=== PATIENT | female | born 1940 | race Caucasian/White ===

== ENCOUNTER 2018-04-02 12:40 | Inpatient (IN) ==
[2018-04-02] MEDS ORDERED: ceFAZolin 2 GM Premix Inj 2 GM/50 ML PIGGYBACK IV.SIG ONE (12:52)
[2018-04-02] MEDS ORDERED: Diphtheria/Tetanus/Pertussis Vaccine Inj 0.5 ML Syringe IM ONE (12:52)
--- NOTE | 2018-04-02 13:05 | XR ---
EXAM DATE: 04/02/2018 12:58 PM EST AGE/SEX: 89 years / Female INDICATIONS: Trauma alert. Head wound after fall in kitchen. CLINICAL DATA: This is the patient's initial encounter. Patient reports that signs and symptoms have been present for 1 day and indicates a pain score of Nonresponsive. MEDICAL/SURGICAL HISTORY: Non-responsive. Non-responsive. COMPARISON: No prior exams available for comparison. FINDINGS: Single view the chest demonstrates generalized interstitial vascular prominence. Median sternotomy wi res from prior open heart surgery are noted. Heart is at the upper limits of normal size to mildly enlarged. Osseous structures are grossly intact. CONCLUSION: Generalized interstitial vascular prominence which may represent developing congestion No evidence of consolidating airspace disease or effusions. Status post median sternotomy. Electronically signed by: Francis Santana MD 04/02/2018 1:04 PM EST
[2018-04-02 13:18] LABS: Baso % (Auto) 0.7 % (0.0-2.0); Eos # (Auto) 0.1 th/mm3 (0.0-0.4); Eos % (Auto) 0.9 % (0.0-4.0); Hemoglobin 13.6 gm/dL (11.6-15.3); Lymph # (Auto) 1.3 th/mm3 (1.0-4.8); Lymph % (Auto) 18.9 % (9.0-44.0); Mean Corpuscular HGB Conc 33.2 % (32.0-36.0); Mean Corpuscular Hemoglobin 33.2 pg (27.0-34.0); Mean Platelet Volume 9.3 fL (7.0-11.0); Mono # (Auto) 0.4 th/mm3 (0.0-0.9); Mono % (Auto) 6.4 % (0.0-8.0); Neut # (Auto) 5.1 th/mm3 (1.8-7.7); Neut % (Auto) 73.1 % (16.0-70.0); Platelet Count 187 th/mm3 (150-450); Red Cell Distribution Width 14.1 % (11.6-17.2)
--- NOTE | 2018-04-02 13:19 | CT ---
EXAM DATE: 04/02/2018 1:08 PM EST AGE/SEX: 89 years / Female INDICATIONS: Trauma alert, syncope with fall CLINICAL DATA: This is the patient's initial encounter. Patient reports that signs and symptoms have been present for 1 day and indicates a pain score of 5/10. MEDICAL/SURGICAL HISTORY: Cerebrovascular disease. Hypertension. CABG. RADIATION DOSE: 45.82 CTDI (mGy) COMPARISON: No prior exams available for comparison. TECHNIQUE: CT of the head without contrast. Using automated exposure control and adjustment of the mA and/or kV according to patient size, radiation dose was kept as low as reasonably achievable to ob tain optimal diagnostic quality images. DICOM format image data is available electronically for revi ew and comparison. FINDINGS: Cerebrum: The ventricles are normal for age. Cerebral atrophy and areas of low attenuation throughou t the white matter. No evidence of midline shift, mass lesion, hemorrhage or acute infarction. No ex traaxial fluid collections are seen. Posterior Fossa: The cerebellum and brainstem are intact. The 4th ventricle is midline. The cerebe llopontine angle is unremarkable. Extracranial: The visualized portion of the orbits is intact. Facial and scalp contusions. Skull: The calvaria is intact. No evidence of skull fracture. CONCLUSION: 1. No acute intracranial abnormality. 2. Facial and scalp contusions. 3. Cerebral atrophy and chronic ischemic small vessel vasculopathy. Electronically signed by: Gume Da Silva MD 04/02/2018 1:18 PM EST
--- NOTE | 2018-04-02 13:23 | CT ---
EXAM DATE: 04/02/2018 1:18 PM EST AGE/SEX: 89 years / Female INDICATIONS: Trauma alert, syncope with fall CLINICAL DATA: This is the patient's initial encounter. Patient reports that signs and symptoms have been present for 1 day and indicates a pain score of 7/10. MEDICAL/SURGICAL HISTORY: Cerebrovascular disease. Hypertension. CABG. RADIATION DOSE: 63.47 CTDI (mGy) COMPARISON: No prior exams available for comparison. TECHNIQUE: Contiguous images in the axial and coronal planes were obtained using helical multirow de tector technique. Using automated exposure control and adjustment of the mA and/or kV according to p atient size, radiation dose was kept as low as reasonably achievable to obtain optimal diagnostic candis lity images. DICOM format image data is available electronically for review and comparison. FINDINGS: Orbits: The orbital and infraorbital osseous structures are intact. The retroconal structures have a normal configuration. No radiopaque foreign bodies are seen. Nasal Bone: The nasal bone and maxillary spine are intact. Zygomatic Arches: Symmetric without evidence of fracture. Sinuses: The maxillary, ethmoid, and frontal sinuses are intact. No air-fluid levels seen. Nasal Cavity: The nasal septum is intact and midline. The lacrimal ducts are intact. Soft Tissues: No radiopaque foreign bodies seen. There is soft-tissue swelling. Left superior orbita l contusion.. Intracranial: No intracranial air seen. Cribriform Plate: Grossly intact. CONCLUSION: 1. Facial soft tissue swelling greater than left. 2. No facial fractures. Electronically signed by: Gume Da Silva MD 04/02/2018 1:22 PM EST
[2018-04-02 13:27] LABS: Activated Partial Thrombo Time 27.2 sec (23.4-31.7); Prothrombin Time 9.7 sec (9.8-11.6)
[2018-04-02] MEDS ORDERED: Lidocaine 1% Inj 50 ML Vial INFILTRATN ONE ×2 (13:37→14:30)
[2018-04-02] MEDS ORDERED: Lidocaine PF 1% Inj 30 ML Vial ONE (13:40)
--- NOTE | 2018-04-02 13:53 | CT ---
EXAM DATE: 04/02/2018 1:45 PM EST AGE/SEX: 89 years / Female INDICATIONS: Trauma alert, syncope with fall CLINICAL DATA: This is the patient's initial encounter. Patient reports that signs and symptoms have been present for 1 day and indicates a pain score of 0/10. MEDICAL/SURGICAL HISTORY: Cerebrovascular disease. Hypertension. CABG. RADIATION DOSE: 15.33 CTDI (mGy) COMPARISON: [facility], CHEST 1V SINGLE AP, 04/02/2018. . TECHNIQUE: Contiguous axial images were obtained using helical multirow detector technique. The vol umetric data was post-processed with multiplanar reconstruction in oblique axial, sagittal, and coron al planes. Using automated exposure control and adjustment of the mA and/or kV according to patient s ize, radiation dose was kept as low as reasonably achievable to obtain optimal diagnostic quality gema ges. DICOM format image data is available electronically for review and comparison. FINDINGS: Vertebrae: Normal vertebral body height. Diffuse mild degenerative changes. Scattered facet arthropa thy. There is a mass posterior to the esophagus and right thyroid gland. This measures 2.6 x 1.0 cm. Interlobular septal thickening within the upper lobes. Alignment: Normal. No subluxation. C2-3: The bony spinal canal is normal in size. No evidence of disc bulge or herniation. The neural foramina are bilaterally patent. C3-4: The bony spinal canal is normal in size. No evidence of disc bulge or herniation. The neural foramina are bilaterally patent. C4-5: The bony spinal canal is normal in size. No evidence of disc bulge or herniation. The neural foramina are bilaterally patent. C5-6: The bony spinal canal is normal in size. No evidence of disc bulge or herniation. The neural foramina are bilaterally patent. C6-7: The bony spinal canal is normal in size. No evidence of disc bulge or herniation. The neural foramina are bilaterally patent. C7-T1: The bony spinal canal is normal in size. No evidence of disc bulge or herniation. The neura l foramina are bilaterally patent. CONCLUSION: 1. No fracture or subluxation. 2. There is a mass in the right posterior neck just posterior to the right thyroid lobe and trachea. Malignancy should be excluded. 3. Interlobular septal thickening within the upper lung likely from interstitial edema. Electronically signed by: Gume Da Silva MD 04/02/2018 1:51 PM EST
--- NOTE | 2018-04-02 13:57 | CT ---
EXAM DATE: 04/02/2018 1:45 PM EST AGE/SEX: 89 years / Female INDICATIONS: Trauma alert, syncope with fall CLINICAL DATA: This is the patient's initial encounter. Patient reports that signs and symptoms have been present for 1 day and indicates a pain score of 0/10. MEDICAL/SURGICAL HISTORY: Carotid stenosis. Hypertension. CABG. RADIATION DOSE: 6.8 CTDI (mGy) COMPARISON: No prior exams available for comparison. TECHNIQUE: Volumetric scanning was performed using a multi-row detector CT scanner during bolus infu lucy of 55 ml Omnipaque 350 (iohexol) nonionic water-soluble contrast as a single exam dose. The yon a was post processed with a variety of visualization algorithms including full volume maximum intensi ty projection and sliding thin slab reformation. Using automated exposure control and adjustment of t he mA and/or kV according to patient size, radiation dose was kept as low as reasonably achievable to obtain optimal diagnostic quality images. DICOM format image data is available electronically for r eview and comparison. FINDINGS: Pulmonary Arteries: No filling defects are seen in the pulmonary arteries out to the subsegmental ve ssels. The left and right pulmonary arteries are normal in diameter. Lung: There is some interlobular septal thickening. There are some groundglass densities in the lowe r lobes and posterior segments of the upper lobes. 3 to 4 mm nodules are seen within the right upper lobe. There is an 11 mm nodule in the right lower lobe. 4 mm nodule left upper lobe. Effusion: None. Mediastinum: No evidence of mediastinal or hilar adenopathy. Status post CABG. Other: The axilla is unremarkable. CONCLUSION: 1. No evidence for pulmonary embolism. 2. Interlobular septal thickening with scattered groundglass densities likely interstitial edema. 3. 11 mm nodule in the right lower lobe, metastatic disease cannot be excluded. A few other smaller nodules are seen within the upper lobes. Electronically signed by: Gume Da Silva MD 04/02/2018 1:56 PM EST
--- NOTE | 2018-04-02 14:07 | ED ---
HPI General Chief complaint: Trauma Alert Stated complaint: Trauma Alert Time Seen by Provider: 04/02/18 12:59 Source: EMS Mode of arrival: EMS Limitations: no limitations History of Present Illness HPI narrative: Elderly female with history of CVA, CAD s/p CABG ([employer] in [place]) here as trauma alert s/p syncope and then fall. Pt was walking to kitchen and said she does not remember what happened but found her on the floor. She has a large avulsion left scalp and periorbital ecchymoses. +LOC for a second. Pt is GCS 15 in the trauma bay and denies any complaints. She was hypoxic and required 4N NC. No focal neurologic deficits. Denies any chest pain, n/v, abdominal pain, focal weakness or numbness. Related Data Home Medications Medication Instructions Recorded Confirmed Ocuvite 04/02/18 aspirin 81 mg PO DAILY 04/02/18 04/02/18 carvedilol 3.125 mg PO BID 04/02/18 04/02/18 digoxin 0.125 mg PO EVERY OTHER DAY 04/02/18 04/02/18 furosemide 20 mg PO DAILY 04/02/18 04/02/18 magnesium 04/02/18 potassium chloride 10 meq PO BID 04/02/18 04/02/18 sacubitril-valsartan [Entresto] 1 tab PO BID 04/02/18 04/02/18 Allergies Allergy/AdvReac Type Severity Reaction Status Date / Time acetaminophen [From Percocet] Allergy UNKNOWN Verified 04/02/18 14:07 amlodipine [From Norvasc] Allergy UNKNOWN Verified 04/02/18 14:07 amoxicillin [From Augmentin] Allergy UNKNOWN Verified 04/02/18 14:07 benzonatate Allergy UNKNOWN Verified 04/02/18 14:07 [From Tessalon Perles] clavulanic acid Allergy UNKNOWN Verified 04/02/18 14:07 [From Augmentin] clonidine Allergy UNKNWN Verified 04/02/18 14:07 enalaprilat [From Vasotec] Allergy UNKNOWN Verified 04/02/18 14:07 nadolol Allergy UNKNOWN Verified 04/02/18 14:07 nebivolol [From Bystolic] Allergy UNKNOWN Verified 04/02/18 14:07 oxycodone [From Percocet] Allergy UNKNOWN Verified 11/05/18 14:07 verapamil [From Covera-HS] Allergy UNKNOWN Verified 04/02/18 14:07 FENESIN Allergy UNKNOWN Uncoded 04/02/18 14:07 ZPAK Allergy UNKNOWN Uncoded 04/02/18 14:07 Review of Systems ROS: all other systems reviewed are negative [facility] Family History Family History Other Family history non-contributory Social History Social History Substance History: No History of Abuse Second Hand Smoke Exposure: No Smoking Status: Never smoker How Often Do You Have a Drink Containing Alcohol: Never Recent Travel in [facility] within the Last 8 Weeks: No Recent Out of Country Travel within the Last 8 Weeks: No Immunization History Tetanus Immunization: <5 Years Exam Narrative Exam Narrative: GENERAL: Elderly female in mild distress. SKIN: Focused skin assessment warm/dry. HEAD: +Large scalp laceration. Large periorbital ecchymoses with laceration eyebrow. EYES: Right pupil reactive to light. Unable to open left eye due to swelling. No scleral icterus. No injection or drainage. ENT: No nasal bleeding or discharge. Mucous membranes pink and moist. NECK: Trachea midline. No JVD. CARDIOVASCULAR: Sinus tachycardia. No murmur appreciated. RESPIRATORY: No accessory muscle use. Clear to auscultation. Breath sounds equal bilaterally. GASTROINTESTINAL: Abdomen soft, non-tender, nondistended. MUSCULOSKELETAL: No obvious deformities. No clubbing. No cyanosis. No edema. NEUROLOGICAL: Awake and alert. No obvious cranial nerve deficits. Motor grossly within normal limits. Normal speech. PSYCHIATRIC: Appropriate mood and affect; insight and judgment normal. Procedures Laceration Laceration 1: Site: scalp Side (If applicable): right Size (cm): 10 Description: linear Depth: simple, single layer Anesthetic used: lidocaine 1% Anesthesia technique:: local infiltration Amount (mL): 10 Pre-repair:: wound explored, irrigated extensively and deep structures intact Skin layer closed with: prolene Size (cm): 4-0 Number of sutures:: 20 Technique:: simple, interrupted Laceration 2: Site: face Side (If applicable): left Size (cm): 3 Description: linear Depth: simple, single layer Anesthetic used: lidocaine 1% Anesthesia technique:: local infiltration Amount (mL): 5 Pre-repair:: wound explored, irrigated extensively and deep structures intact Skin layer closed with: prolene Size (cm): 4-0 Number of sutures:: 6 Technique:: simple, interrupted Laceration 3: Site: face Side (If applicable): left Size (cm): 1 Description: stellate Depth: simple, single layer Anesthetic used: lidocaine 1% Anesthesia technique:: local infiltration Amount (mL): 3 Pre-repair:: wound explored, irrigated extensively and deep structures intact Skin layer closed with: prolene Size (cm): 4-0 Number of sutures:: 4 Technique:: simple, interrupted Course Initial Documented Vital Signs Pulse Oximetry 96 04/02/18 12:54 Last Documented Vital Signs Temperature 97.8 F 04/03/18 08:00 Pulse Rate 97 H 04/03/18 11:51 Respiratory Rate 18 04/03/18 11:51 Blood Pressure 126/73 04/03/18 11:51 Pulse Oximetry 96 04/03/18 11:51 Critical Care Time Critical Care Time: Yes Total Critical Care Time: 50 Attestation: Aggregate critical care time was 50 minutes. Time to perform other separately billable procedures was not included in the critical care time. My time did not include minutes spent treating any other patients simultaneously or on activities that did not directly contribute to the patient's treatment. The services I provided to this patient were to treat and/or prevent clinically significant deterioration that could result in: cardiovascular collapse or . I provided critical care services requiring my management, as noted below: Chart data review, documentation time, medication orders and management, vital sign assessments/reviewing monitor data, ordering and reviewing lab tests, ordering and interpreting/reviewing x-rays and diagnostic studies, care of the patient and discussion of the patient with the admitting physicians. Sign Out Sign Out Data: Patient Sign Out occurred on 04/02/18 at 16:38. Patient's care was discussed, and care was transferred from Yolanda Yip DO to Everardo Rosas MD. Sign Out Comment: Sign out to next team to admit the patient. Last updated by Yolanda Yip DO at 04/02/18 16:19 Post-Handoff Eval: The patient was initially evaluated by the previous provider and signed out to me at the end of her shift pending trauma surgery evaluation and admission to either the trauma or medical depending on their recommendation. This is an elderly female who presented as a level 2 trauma alert for significant head injury after a fall. The patient does not recall the incident , and she presumably had a syncopal episode that caused her fall in her kitchen. She does have significant cardiac disease with CABG and valve repair. Patient was noted to have a large scalp laceration that was repaired in the emergency department. CT head, neck, and facial bones show no acute injuries, however CT of the neck shows a right sided mass posterior to the thyroid. CT pulmonary angiogram is negative for PE, however there are several nodules suspicious for metastatic disease. Troponin is elevated at 0.94. EKG shows a left bundle branch block. Patient is awake and alert. She has significant periorbital ecchymosis on the left, however she states that after the fall she did have normal vision in this eye, however now she is unable to open the eye because of the edema. She is complaining of some mild pain to her right wrist, so I have ordered a wrist x-ray. There is some ecchymosis to the lateral wrist without obvious bony deformity, with mild tenderness, with normal range of motion. The right upper extremity is neurovascularly intact, and all compartments are supple. 5:10 PM: The patient was evaluated at the bedside by trauma surgeon Dr. Urbina who has cleared the patient from a trauma standpoint to be admitted to the medical service for further workup of syncope/elevated troponin/neck mass. Right wrist x-ray shows closed right distal radius fracture. Patient will be placed in a splint. Case discussed with hospitalist Dr. Ardon who will admit the patient to his service. Medical Decision Making MDM Narrative Medical decision making narrative: Elderly female here with syncope and then head and facial trauma. Level 2 trauma alert called. Tetanus not given since pt said she had tetanus 3 years ago. She is hypoxic and tachycardic with syncope so I am concern about PE and ordered CT angio. Labs reviewed, no leukocytosis. H/H normal. Troponin elevated at 0.92. Pt has no chest pain or sob. BNP elevated at 414. CTA showed no PE, interlobular septic thickening with groundglass densities likely intersitital edema. 11mm nodule in right lower lobe, metastatic disease cannot be excluded. Pt and family was made aware of this finding. CT brain showed no acute intracranial abnormality. CT facial showed facial soft tissue swelling, no facial fractures. CT cervical spine showed no fracture. Laceration repaired in the ED. Pt is feeling better now. O2 sat is 95% on RA. I tried to admit pt to medicine since her trauma work up is negative and she had syncope prior to falling so feel that syncope work up is needed especially with elevated troponin. Pt has no chest pain but will need to have her troponin and EKG repeated. Routine cardiology consult placed. Dr. Urbina from trauma service is aware of patient. Medical Screen Exam Complete: Yes Emergency Medical Condition: Yes Differential Diagnosis Differential Diagnosis: PE vs. arrhythmia vs. ACS vs. ICH vs. skull fracture Lab Data Result diagrams: 04/03/18 07:01 04/03/18 07:01 Lab Results 04/02/18 04/02/18 04/02/18 Range/Units 12:45 12:45 12:45 WBC 7.0 (4.0-11.0) th/mm3 RBC 4.10 (4.00-5.30) mil/mm3 Hgb 13.6 (11.6-15.3) gm/dL POC Hgb (Calc) 14.3 (11.6-15.3) g/dL Hct 41.0 (35.0-46.0) % POC Hct 42.0 (35-46.0) % MCV 100.0 (80.0-100.0) fL MCH 33.2 (27.0-34.0) pg MCHC 33.2 (32.0-36.0) % RDW 14.1 (11.6-17.2) % Plt Count 187 (150-450) th/mm3 MPV 9.3 (7.0-11.0) fL Neut % (Auto) 73.1 H (16.0-70.0) % Lymph % (Auto) 18.9 (9.0-44.0) % [place] % (Auto) 6.4 (0.0-8.0) % Eos % (Auto) 0.9 (0.0-4.0) % Baso % (Auto) 0.7 (0.0-2.0) % Neut # (Auto) 5.1 (1.8-7.7) th/mm3 Lymph # (Auto) 1.3 (1.0-4.8) th/mm3 [place] # (Auto) 0.4 (0.0-0.9) th/mm3 Eos # (Auto) 0.1 (0.0-0.4) th/mm3 Baso # (Auto) 0.0 (0.0-0.2) th/mm3 WBC Differential . Differential Comment Auto diff final PT 9.7 L (9.8-11.6) sec INR 1.0 Ratio APTT 27.2 (23.4-31.7) sec POC Sodium 139 (137-144) mmol/L Sodium (136-145) meq/L POC Potassium 4.5 (3.6-5.0) mmol/L Potassium (3.5-5.1) meq/L POC Chloride 104 (102-111) mmol/L Chloride (98-107) meq/L Carbon Dioxide (21.0-32.0) meq/L Anion Gap (5-15) meq/L POC BUN 30 H (5-21) mg/dL BUN (7-18) mg/dL Creatinine (0.50-1.00) mg/dL POC Creatinine 1.4 H (0.6-1.3) mg/dL Estimated GFR (>89) mL/min POC Glucose 109 (68-110) mg/dL Random Glucose (74-106) mg/dL Calcium (8.5-10.1) mg/dL Troponin I (0.02-0.05) ng/mL B-Natriuretic Peptide (0-100) pg/mL TSH (0.358-3.740) uIU/mL Blood Type Antibody Screen 04/02/18 04/02/18 04/02/18 Range/Units 12:45 12:45 12:45 WBC (4.0-11.0) th/mm3 RBC (4.00-5.30) mil/mm3 Hgb (11.6-15.3) gm/dL POC Hgb (Calc) (11.6-15.3) g/dL Hct (35.0-46.0) % POC Hct (35-46.0) % MCV (80.0-100.0) fL MCH (27.0-34.0) pg MCHC (32.0-36.0) % RDW (11.6-17.2) % Plt Count (150-450) th/mm3 MPV (7.0-11.0) fL Neut % (Auto) (16.0-70.0) % Lymph % (Auto) (9.0-44.0) % [place] % (Auto) (0.0-8.0) % Eos % (Auto) (0.0-4.0) % Baso % (Auto) (0.0-2.0) % Neut # (Auto) (1.8-7.7) th/mm3 Lymph # (Auto) (1.0-4.8) th/mm3 [place] # (Auto) (0.0-0.9) th/mm3 Eos # (Auto) (0.0-0.4) th/mm3 Baso # (Auto) (0.0-0.2) th/mm3 WBC Differential Differential Comment PT (9.8-11.6) sec INR Ratio APTT (23.4-31.7) sec POC Sodium (137-144) mmol/L Sodium (136-145) meq/L POC Potassium (3.6-5.0) mmol/L Potassium (3.5-5.1) meq/L POC Chloride (102-111) mmol/L Chloride (98-107) meq/L Carbon Dioxide (21.0-32.0) meq/L Anion Gap (5-15) meq/L POC BUN (5-21) mg/dL BUN (7-18) mg/dL Creatinine (0.50-1.00) mg/dL POC Creatinine (0.6-1.3) mg/dL Estimated GFR (>89) mL/min POC Glucose (68-110) mg/dL Random Glucose (74-106) mg/dL Calcium (8.5-10.1) mg/dL Troponin I 0.92 H* (0.02-0.05) ng/mL B-Natriuretic Peptide 414 H (0-100) pg/mL TSH (0.358-3.740) uIU/mL Blood Type A Positive Antibody Screen Negative 04/02/18 04/02/18 04/03/18 Range/Units 18:58 20:11 00:50 WBC (4.0-11.0) th/mm3 RBC (4.00-5.30) mil/mm3 Hgb (11.6-15.3) gm/dL POC Hgb (Calc) (11.6-15.3) g/dL Hct (35.0-46.0) % POC Hct (35-46.0) % MCV (80.0-100.0) fL MCH (27.0-34.0) pg MCHC (32.0-36.0) % RDW (11.6-17.2) % Plt Count (150-450) th/mm3 MPV (7.0-11.0) fL Neut % (Auto) (16.0-70.0) % Lymph % (Auto) (9.0-44.0) % [place] % (Auto) (0.0-8.0) % Eos % (Auto) (0.0-4.0) % Baso % (Auto) (0.0-2.0) % Neut # (Auto) (1.8-7.7) th/mm3 Lymph # (Auto) (1.0-4.8) th/mm3 [place] # (Auto) (0.0-0.9) th/mm3 Eos # (Auto) (0.0-0.4) th/mm3 Baso # (Auto) (0.0-0.2) th/mm3 WBC Differential Differential Comment PT (9.8-11.6) sec INR Ratio APTT (23.4-31.7) sec POC Sodium (137-144) mmol/L Sodium (136-145) meq/L POC Potassium (3.6-5.0) mmol/L Potassium (3.5-5.1) meq/L POC Chloride (102-111) mmol/L Chloride (98-107) meq/L Carbon Dioxide (21.0-32.0) meq/L Anion Gap (5-15) meq/L POC BUN (5-21) mg/dL BUN (7-18) mg/dL Creatinine (0.50-1.00) mg/dL POC Creatinine (0.6-1.3) mg/dL Estimated GFR (>89) mL/min POC Glucose (68-110) mg/dL Random Glucose (74-106) mg/dL Calcium (8.5-10.1) mg/dL Troponin I 2.31 H* D 2.55 H* D (0.02-0.05) ng/mL B-Natriuretic Peptide (0-100) pg/mL TSH 1.120 (0.358-3.740) uIU/mL Blood Type Antibody Screen 04/03/18 04/03/18 Range/Units 07:01 07:01 WBC 6.9 (4.0-11.0) th/mm3 RBC 3.42 L (4.00-5.30) mil/mm3 Hgb 11.5 L D (11.6-15.3) gm/dL POC Hgb (Calc) (11.6-15.3) g/dL Hct 33.5 L (35.0-46.0) % POC Hct (35-46.0) % MCV 97.9 (80.0-100.0) fL MCH 33.7 (27.0-34.0) pg MCHC 34.4 (32.0-36.0) % RDW 13.9 (11.6-17.2) % Plt Count 146 L (150-450) th/mm3 MPV 9.2 (7.0-11.0) fL Neut % (Auto) 77.6 H (16.0-70.0) % Lymph % (Auto) 13.4 (9.0-44.0) % [place] % (Auto) 8.4 H (0.0-8.0) % Eos % (Auto) 0.1 (0.0-4.0) % Baso % (Auto) 0.5 (0.0-2.0) % Neut # (Auto) 5.3 (1.8-7.7) th/mm3 Lymph # (Auto) 0.9 L (1.0-4.8) th/mm3 [place] # (Auto) 0.6 (0.0-0.9) th/mm3 Eos # (Auto) 0.0 (0.0-0.4) th/mm3 Baso # (Auto) 0.0 (0.0-0.2) th/mm3 WBC Differential . Differential Comment Auto diff final PT (9.8-11.6) sec INR Ratio APTT (23.4-31.7) sec POC Sodium (137-144) mmol/L Sodium 140 (136-145) meq/L POC Potassium (3.6-5.0) mmol/L Potassium 4.0 (3.5-5.1) meq/L POC Chloride (102-111) mmol/L Chloride 105 (98-107) meq/L Carbon Dioxide 23.7 (21.0-32.0) meq/L Anion Gap 11 (5-15) meq/L POC BUN (5-21) mg/dL BUN 27 H (7-18) mg/dL Creatinine 1.03 H (0.50-1.00) mg/dL POC Creatinine (0.6-1.3) mg/dL Estimated GFR 52 L (>89) mL/min POC Glucose (68-110) mg/dL Random Glucose 91 (74-106) mg/dL Calcium 8.7 (8.5-10.1) mg/dL Troponin I (0.02-0.05) ng/mL B-Natriuretic Peptide (0-100) pg/mL TSH (0.358-3.740) uIU/mL Blood Type Antibody Screen Imaging Data Radiologist's impression: Chest X-Ray 04/02/18 12:42 CONCLUSION: Generalized interstitial vascular prominence which may represent developing congestion No evidence of consolidating airspace disease or effusions. Status post median sternotomy. Cervical Spine CT 04/02/18 12:53 CONCLUSION: 1. No fracture or subluxation. 2. There is a mass in the right posterior neck just posterior to the right thyroid lobe and trachea. Malignancy should be excluded. 3. Interlobular septal thickening within the upper lung likely from interstitial edema. Face CT 04/02/18 12:53 CONCLUSION: 1. Facial soft tissue swelling greater than left. 2. No facial fractures. Head CT 04/02/18 12:53 CONCLUSION: 1. No acute intracranial abnormality. 2. Facial and scalp contusions. 3. Cerebral atrophy and chronic ischemic small vessel vasculopathy. Chest CTA 04/02/18 12:59 CONCLUSION: 1. No evidence for pulmonary embolism. 2. Interlobular septal thickening with scattered groundglass densities likely interstitial edema. 3. 11 mm nodule in the right lower lobe, metastatic disease cannot be excluded. A few other smaller nodules are seen within the upper lobes. Wrist X-Ray 04/02/18 16:41 CONCLUSION: Nondisplaced fracture of the distal right radius extending into the radiocarpal joint. Moderate arthropathy at the base of the first metacarpal. Carotid Doppler Study 04/03/18 00:00 CONCLUSION: Mild to moderate plaquing with no evidence of stenosis. ECG Data EKG Prior to Arrival: No Attestation: I personally reviewed and interpreted this ECG as follows: Interpretation: Sinus tachycardia at 103bpm. LAD. LBBB. No concordance. Discharge Plan Discharge Disposition Patient Disposition: 30 Still Patient Discharge Condition Condition: Stable Discharge Details Diagnosis: Syncope, Elevated troponin, Head injury, Laceration of scalp, Mass in neck, Pulmonary nodule, Closed fracture dislocation of right wrist joint Physicians Team ED Provider: Everardo Rosas ED Midlevel Provider: Reymundo Rojas Primary Care Provider: UNKNOWN, Attending Provider: Tima Villa Other Providers: Rajeev Connolly ; Chaka Conteh ; Dianna Marin N Status ED Status: Left Department Discharge Information Discharge Date/Time: 04/02/18 21:32
--- NOTE | 2018-04-02 17:22 | P.CON ---
History of Present Illness Service: Trauma Consult date: 04/02/18 Reason for Consult: Fall Primary Care Provider: UNKNOWN Chief Complaint: Headache History of Present Illness: This is a woman with significant cardiac history who had a syncopal fall today. She remembers walking into her kitchen and waking up on the floor. She had a scalp laceration and facial hematomas and laceration which were closed in the ED. She underwent full workup and was found to have no traumatic issues, no intracranial hemorrhage or skull fracture. Review of Systems All other systems reviewed negative except as stated in HPI PMFSH - History History Provided By: Patient - Medical History Medical History: Medical History (Last Updated 04/02/18 @ 17:24 by Davian Urbina MD) Coronary artery disease Stroke - Tobacco History Smoking Status: Unknown if ever smoked - Alcohol History How Often Do You Have a Drink Containing Alcohol: Monthly or less - Substance Use History Substance History: No History of Abuse - Travel History Recent Travel in the [place] Within the Last 8 Weeks: No Recent Travel Out of the Country Within the Last 8 Weeks: No - Immunization History Tetanus Immunization: <5 Years Medications and Allergies Allergies Allergy/AdvReac Type Severity Reaction Status Date / Time acetaminophen [From Percocet] Allergy UNKNOWN Verified 04/02/18 14:07 amlodipine [From Norvasc] Allergy UNKNOWN Verified 04/02/18 14:07 amoxicillin [From Augmentin] Allergy UNKNOWN Verified 04/02/18 14:07 benzonatate Allergy UNKNOWN Verified 04/02/18 14:07 [From Tessalon Perles] clavulanic acid Allergy UNKNOWN Verified 04/02/18 14:07 [From Augmentin] clonidine Allergy UNKNWN Verified 04/02/18 14:07 enalaprilat [From Vasotec] Allergy UNKNOWN Verified 04/02/18 14:07 nadolol Allergy UNKNOWN Verified 04/02/18 14:07 nebivolol [From Bystolic] Allergy UNKNOWN Verified 04/02/18 14:07 oxycodone [From Percocet] Allergy UNKNOWN Verified 04/02/18 14:07 verapamil [From Covera-HS] Allergy UNKNOWN Verified 04/02/18 14:07 FENESIN Allergy UNKNOWN Uncoded 04/02/18 14:07 ZPAK Allergy UNKNOWN Uncoded 04/02/18 14:07 Home Medications Medication Instructions Recorded Confirmed Type Ocuvite 04/02/18 History aspirin 81 mg PO DAILY 04/02/18 04/02/18 History carvedilol 3.125 mg PO BID 04/02/18 04/02/18 History digoxin 0.125 mg PO EVERY OTHER DAY 04/02/18 04/02/18 History furosemide 20 mg PO DAILY 04/02/18 04/02/18 History magnesium 04/02/18 History potassium chloride 10 meq PO BID 04/02/18 04/02/18 History sacubitril-valsartan [Entresto] 1 tab PO BID 04/02/18 04/02/18 History Physical Exam Vital signs: Vital Signs 04/02/18 12:54 04/02/18 12:55 04/02/18 16:42 Pulse Rate 97 H Respiratory Rate 15 Blood Pressure 147/77 H Pulse Oximetry 96 96 98 Intake & Output 04/01/18 04/02/18 04/02/18 18:59 06:59 18:59 Weight 72.575 kg - Constitutional no acute distress - Routine HEENT Exam Head: Present: laceration (Closed with interrupted Prolene) Eye: Present: EOMI, periorbital ecchymosis, periorbital swelling, periorbital tenderness ENT: Present: mucous membranes moist - Routine Neck Exam Absent: tenderness, tracheal deviation, trauma - Routine Respiratory Exam Present: CTA bilaterally - Routine Cardiovascular Exam Present: RRR - Routine Abdominal Exam Present: soft. Absent: tenderness, distended - Routine Extremities Exam Absent: cyanosis, clubbing, edema - Routine Skin Exam Present: dry, warm - Routine Neurological Exam Present: alert, oriented X3, CN II-XII intact. Absent: sensory deficit, motor deficit - Routine Psychiatric Exam Present: normal affect, normal thought process Assessment and Plan - Plan No indication for trauma admission at this time. Her lacerations have been closed and appear well approximated without evidence of ongoing hemorrhage. Small pressure dressing can be applied if there is oozing due to her aspirin use. Recommend medical admission for syncopal workup including cardiac echo for elevated troponin and carotid duplex. In addition, there must be further investigation of this neck mass and pulmonary nodules to determine if they are benign or malignant and primary versus metastatic.
--- NOTE | 2018-04-02 17:32 | XR ---
EXAM DATE: 04/02/2018 5:02 PM EST AGE/SEX: 89 years / Female INDICATIONS: Pain in right wrist post fall. CLINICAL DATA: This is the patient's initial encounter. Patient reports that signs and symptoms have been present for 1 day and indicates a pain score of 5/10. MEDICAL/SURGICAL HISTORY: None. None. COMPARISON: No prior exams available for comparison. FINDINGS: A nondisplaced fracture is identified in the distal right radius extending into the radiocarpal joint . Radiocarpal alignment is well-preserved. Mild soft tissue swelling is noted. Significant arthropathy is seen at the base of the first metacarpal. CONCLUSION: Nondisplaced fracture of the distal right radius extending into the radiocarpal joint. Moderate arthropathy at the base of the first metacarpal. Electronically signed by: Francis Santana MD 04/02/2018 5:30 PM EST
[2018-04-02] MEDS ORDERED: Bisacodyl 10 MG Supp RECTAL PRN (18:32)
--- NOTE | 2018-04-02 19:02 | P.HPIM ---
History of Present Illness Service: [facility] hospitalist Primary Care Physician: UNKNOWN Chief Complaint: Headache History of Present Illness: Pleasant female with a history of coronary artery disease status post CABG and valve replacement about 2 years ago brought in as a level 2 trauma alert with significant head injury after fall. Patient reports the last thing she remembered was walking to the kitchen. She denied any prodromal symptoms such as lightheadedness. She reported a history of paroxysmal A. fib. She takes a baby aspirin daily. No other blood thinners. The patient had a large scalp laceration, large ecchymosis/swelling of the left eye. She is unable to open the left eye due to significant swelling but states she had no visual problems right after the injury before the swelling worsen. She was reportedly hypoxemic and tachypneic on arrival. Her troponin is elevated at 0.9. Further imaging also shows a nondisplaced right distal radius fracture. The patient was evaluated by the trauma surgeon and cleared for admission to the medical service. Inpatient Certification: I certify that the inpatient services were ordered in accordance with Medicare regulations governing the order. This includes certification that hospital inpatient services are reasonable and necessary and in the case of services not specified as inpatient-only under 42 CFR 419.22(n), that they are appropriately provided as inpatient services in accordance to with the 2-midnight benchmark under 43 CFR 412.3(e) Review of Systems All other systems reviewed negative except as stated in HPI Constitutional: Denies fever(s), Denies night sweats, Denies weight loss Cardiovascular: Denies chest pain, Denies chest pain at rest, Denies generalized swelling, Denies shortness of breath with activity Respiratory: Denies shortness of breath PMFSH - History History Provided By: Patient - Medical History Medical History: Medical History (Last Reviewed 04/02/18 @ 18:59 by Chana Ardon MD) Coronary artery disease Stroke - Surgical History Surgical History: Surgical History (Last Updated 04/02/18 @ 18:59 by Chana Ardon MD) Hx of CABG - Family History Family History: Family History (Last Updated 04/02/18 @ 19:02 by Chana Ardon MD) Other Family history non-contributory - Tobacco History Smoking Status: Never smoker - Alcohol History How Often Do You Have a Drink Containing Alcohol: Monthly or less - Substance Use History Substance History: No History of Abuse - Travel History Recent Travel in the [place] Within the Last 8 Weeks: No Recent Travel Out of the Country Within the Last 8 Weeks: No - Immunization History Tetanus Immunization: <5 Years Medications and Allergies Allergies Allergy/AdvReac Type Severity Reaction Status Date / Time acetaminophen [From Percocet] Allergy UNKNOWN Verified 04/02/18 14:07 amlodipine [From Norvasc] Allergy UNKNOWN Verified 04/02/18 14:07 amoxicillin [From Augmentin] Allergy UNKNOWN Verified 04/02/18 14:07 benzonatate Allergy UNKNOWN Verified 04/02/18 14:07 [From Tessalon Perles] clavulanic acid Allergy UNKNOWN Verified 04/02/18 14:07 [From Augmentin] clonidine Allergy UNKNWN Verified 04/02/18 14:07 enalaprilat [From Vasotec] Allergy UNKNOWN Verified 04/02/18 14:07 nadolol Allergy UNKNOWN Verified 04/02/18 14:07 nebivolol [From Bystolic] Allergy UNKNOWN Verified 04/02/18 14:07 oxycodone [From Percocet] Allergy UNKNOWN Verified 04/02/18 14:07 verapamil [From Covera-HS] Allergy UNKNOWN Verified 04/02/18 14:07 FENESIN Allergy UNKNOWN Uncoded 04/02/18 14:07 ZPAK Allergy UNKNOWN Uncoded 04/02/18 14:07 Home Medications Medication Instructions Recorded Confirmed Type Ocuvite 04/02/18 History aspirin 81 mg PO DAILY 04/02/18 04/02/18 History carvedilol 3.125 mg PO BID 04/02/18 04/02/18 History digoxin 0.125 mg PO EVERY OTHER DAY 04/02/18 04/02/18 History furosemide 20 mg PO DAILY 04/02/18 04/02/18 History magnesium 04/02/18 History potassium chloride 10 meq PO BID 04/02/18 04/02/18 History sacubitril-valsartan [Entresto] 1 tab PO BID 04/02/18 04/02/18 History Exam Vital signs: Vital Signs 04/02/18 12:54 04/02/18 12:55 04/02/18 16:42 Pulse Rate 97 H Respiratory Rate 15 Blood Pressure 147/77 H Pulse Oximetry 96 96 98 Intake & Output 04/01/18 04/02/18 04/02/18 18:59 06:59 18:59 Weight 72.575 kg Narrative: CONSTITUTIONAL/GENERAL: Elderly female in no acute distress. Vital signs reviewed. She has been weaned down to room air. HEAD: Large left eye ecchymosis/swelling. Large semicircular, scalp laceration has been repaired. Left infraorbital laceration with small amount of oozing. EYES: Cannot examine the left eye due to severe swelling. Right pupils round and reactive. Extraocular motion on the right is intact. ENT: Hearing grossly normal. Nose without drainage. Throat without visible erythema, exudates, masses, or lesions. NECK: Trachea midline. Neck is supple, non-tender. No palpable thyroid enlargement or nodularity. CARDIOVASCULAR: Normal rate and regular rhythm without murmurs, gallops, or rubs. No JVD. Peripheral pulses 2+ and symmetric. RESPIRATORY/CHEST: Symmetric, unlabored respirations. Breath sounds equal and clear to auscultation bilaterally. No wheezes, crackles, rales, or rhonchi. GASTROINTESTINAL: Abdomen soft, non-tender, non-distended. No hepato- splenomegaly, or palpable masses. No guarding. Bowel sounds present. MUSCULOSKELETAL: Right lateral wrist with small bruise. Mildly tender to palpation over the distal radius. NEUROLOGICAL: Awake and alert. Motor and sensory grossly within normal limits. Follows commands. Move all extremities spontaneously. No focal deficits. PSYCHIATRIC: No obvious mood problems. No apparent hallucinations or other psychotic thought process. Results - Labs CBC & Chem 7: 04/02/18 12:45 Labs: Short CBC 04/02/18 Range/Units 12:45 WBC 7.0 (4.0-11.0) th/mm3 Hgb 13.6 (11.6-15.3) gm/dL Hct 41.0 (35.0-46.0) % Plt Count 187 (150-450) th/mm3 Cardiac Enzymes 04/02/18 Range/Units 12:45 Troponin I 0.92 H* (0.02-0.05) ng/mL - Imaging Impressions Chest X-Ray 04/02/18 12:42 CONCLUSION: Generalized interstitial vascular prominence which may represent developing congestion No evidence of consolidating airspace disease or effusions. Status post median sternotomy. Cervical Spine CT 04/02/18 12:53 CONCLUSION: 1. No fracture or subluxation. 2. There is a mass in the right posterior neck just posterior to the right thyroid lobe and trachea. Malignancy should be excluded. 3. Interlobular septal thickening within the upper lung likely from interstitial edema. Face CT 04/02/18 12:53 CONCLUSION: 1. Facial soft tissue swelling greater than left. 2. No facial fractures. Head CT 04/02/18 12:53 CONCLUSION: 1. No acute intracranial abnormality. 2. Facial and scalp contusions. 3. Cerebral atrophy and chronic ischemic small vessel vasculopathy. Chest CTA 04/02/18 12:59 CONCLUSION: 1. No evidence for pulmonary embolism. 2. Interlobular septal thickening with scattered groundglass densities likely interstitial edema. 3. 11 mm nodule in the right lower lobe, metastatic disease cannot be excluded. A few other smaller nodules are seen within the upper lobes. Wrist X-Ray 04/02/18 16:41 CONCLUSION: Nondisplaced fracture of the distal right radius extending into the radiocarpal joint. Moderate arthropathy at the base of the first metacarpal. Caprini VTE Risk Assessment Caprini VTE Risk Assessment: Moderate/High Risk (score >= 2) VTE Pharmacological Exception Reason: High risk for bleeding Caprini Risk Assessment Model: Point Value = 1 Point Value = 2 Point Value = 3 Point Value = 5 Age 41-60 Minor surgery BMI > 25 kg/m2 Swollen legs Varicose veins or History of unexplained or recurrent spontaneous Oral contraceptives or hormone replacement Sepsis (< 1 month) Serious lung disease, including pneumonia (< 1 month) Abnormal pulmonary function Acute myocardial infarction Congestive heart failure (< 1 month) History of inflammatory bowel disease Medical patient at bed rest Age 61-74 Arthroscopic surgery Major open surgery (> 45 min) Laparoscopic surgery (> 45 min) Malignancy Confined to bed (> 72 hours) Immobilizing plaster cast Central venous access Age >= 75 History of VTE Family history of VTE Factor V Leiden Prothrombin [id number] Lupus anticoagulant Anticardiolipin antibodies Elevated serum homocysteine Heparin-induced thrombocytopenia Other congenital or acquired thrombophilia Stroke (< 1 month) Elective arthroplasty Hip, pelvis, or leg fracture Acute spinal cord injury (< 1 month) Prophylaxis Regimen: Total Risk Factor Score Risk Level Prophylaxis Regimen 0-1 Low Early ambulation 2 Moderate Order ONE of the following: *Sequential Compression Device (SCD) *Heparin 5000 units SQ BID 3-4 Higher Order ONE of the following medications: *Heparin 5000 units SQ TID *Enoxaparin/Lovenox 40 mg SQ daily (WT < 150 kg, CrCl > 30 mL/min) *Enoxaparin/Lovenox 30 mg SQ daily (WT < 150 kg, CrCl > 10-29 mL/min) *Enoxaparin/Lovenox 30 mg SQ BID (WT < 150 kg, CrCl > 30 mL/min) AND/OR *Sequential Compression Device (SCD) 5 or more Highest Order ONE of the following medications: *Heparin 5000 units SQ TID (Preferred with Epidurals) *Enoxaparin/Lovenox 40 mg SQ daily (WT < 150 kg, CrCl > 30 mL/min) *Enoxaparin/Lovenox 30 mg SQ daily (WT < 150 kg, CrCl > 10-29 mL/min) *Enoxaparin/Lovenox 30 mg SQ BID (WT < 150 kg, CrCl > 30 mL/min) AND *Sequential Compression Device (SCD) Assessment and Plan - Plan Elderly female brought in as a level 2 trauma alert after she sustained a traumatic syncope and collapse. Patient sustained a large scalp laceration and left eye blunt trauma. Large head laceration/left eye ecchymoses and swelling from syncope and collapse : -The patient has been evaluated by the trauma surgeon in the emergency room. She was cleared for admission to the medical service. - Large scalp laceration has been repaired by the ED. Patient reports she had normal vision after the initial injury prior to extensive swelling of the left eye. - Continue dressing per trauma team recommendations. - Pain control - Supportive care. Syncope and collapse: Could be secondary to arrhythmia. Seizure less likely. She reports a history of CVA but no residual deficits. - Patient has elevated troponins. - Cardiology has been consulted - Trend cardiac enzymes. No acute ST changes on EKG. - Consult Neurology. - Obtain carotid US. Monitor on telemetry. 2D echo Neck mass and pulmonary nodules: - Patient denies any history of this. She denies having any pulmonary symptoms. - We will consult oncology for assistance. History of congestive heart failure/paroxysmal atrial fibrillation and CAD: - We will continue the patient's home dose Entresto, Coreg, Lasix. Hold aspirin for now. - Cardiology has been consulted. YESSENIA: - Could be secondary to hypoperfusion from event above. unknown baseline. Follow up labs in AM. Right distal radius fracture: Nondisplaced. - Splint applied by ED. Will need outpatient follow up. GI prophylaxis: Stool softener PRN constipation. DVT PPx: SCDs. Chemoprophylaxis contraindicated given recent trauma. Discussed Condition With: Dr. Yip and Dr. Rosas.
--- NOTE | 2018-04-02 19:09 | ECG ---
Date Performed: 04/02/2018 Time Performed: 13:59:56 PTAGE: 89 years EKG: Sinus rhythm WITH OCCASIONAL SUPRAVENTRICULAR PREMATURE COMPLEXES POSSIBLE RIGHT VENTRICULAR CONDUCTION DELAY BOR DERLINE ECG Compared to prior electrocardiogram, Left bundle branch block and PVCs are no longer pres ent. PREVIOUS TRACING : 04/02/2018 13.36 DOCTOR: Oscar Loja Interpretating Date/Time 04/02/2018 19:08:58
--- NOTE | 2018-04-02 19:09 | ECG ---
Date Performed: 04/02/2018 Time Performed: 13:36:12 PTAGE: 89 years EKG: SINUS TACHYCARDIA MARKED LEFT AXIS DEVIATION LEFT BUNDLE BRANCH BLOCK ABNORMAL ECG NO PREVIOUS TRACING DOCTOR: Oscar Loja Interpretating Date/Time 04/02/2018 19:09:09
--- NOTE | 2018-04-02 20:43 | MB ---
cc: Rajeev Connolly MD DATE: 04/02/2018 HISTORY OF PRESENT ILLNESS: The patient is a very pleasant lady with a syncopal event with no prodrome with severe head trauma, left periorbital ecchymosis, large laceration in the frontal lobe of the scalp. Currently, alert and oriented x3, in no acute distress. She denies any prodromal symptoms like chest pain, shortness of breath, palpitations. She is resting comfortably, in no acute distress. Denied fever, chills, cough, GI or bleeding, PND or orthopnea. PAST MEDICAL HISTORY: Per history of present illness. She has a history of CVA and coronary artery disease. ALLERGIES: 1. ACETAMINOPHEN. 2. AMLODIPINE. 3. AMOXICILLIN. 4. TESSALON PERLES. 5. CLAVULANIC ACID. 6. CLONIDINE. 7. ENALAPRIL. 8. NADOLOL. 9. NEBIVOLOL. 10. OXYCODONE. 11. VERAPAMIL. 12. . 13. Z-AIMEE. HOME MEDICATIONS: 1. Digoxin. 2. Potassium. 3. Lasix. 4. Carvedilol. 5. Aspirin. 6. Entresto. 7. Ocuvite. 8. Magnesium. MEDICATIONS IN THE HOSPITAL: P.r.n. medications. PHYSICAL EXAMINATION: VITAL SIGNS: Pulse 97, blood pressure 147/77, sats 98% on room air. PSYCHIATRIC: She is alert, oriented x3, in no acute distress. NECK: Supple. No JVD. No bruit. CARDIOVASCULAR: S1, S2. No murmurs, rubs, gallops. LUNGS: Coarse bilaterally. ABDOMEN: Soft, nontender, nondistended with positive bowel sounds. EXTREMITIES: No lower extremity edema. IMAGING STUDIES: Chest x-ray shows generalized interstitial vascular prominence which may represent developing congestion. No evidence of consolidating airspace disease or effusion, status post median sternotomy. Cervical spine CT: No fracture or subluxation. There is a mass in the right posterior neck just posterior to the right thyroid lobe and trachea. Malignancy should be excluded. Intralobular septal thickening within the upper lung, likely from interstitial edema. A CT facial soft tissue swelling greater than the left, "no facial fractures." Head CT: No acute intracranial abnormality. Facial and scalp contusions, cerebral atrophy and chronic ischemic small vessel vasculopathy. CTA of the chest: No evidence for pulmonary embolism. Interlobular septal thickening with scattered ground glass densities likely interstitial edema, an 11 mm nodule in the right lower lobe. Metastatic disease cannot be excluded. A few other smaller nodules are seen within the upper lobes. Wrist x-ray: Nondisplaced fracture of the distal right radius extending into the radiocarpal joint, moderate arthropathy at the base of the first metacarpal. EKG: Normal sinus rhythm at 74 beats per minute. Normal intervals. PACs versus aberrantly conducted PACs. Second EKG shows sinus tachycardia with left bundle-branch block. LABORATORY DATA: White count 7.0, hemoglobin 13.6, hematocrit 41.0, platelet count 187. INR 1.0. Troponin was 0.92. BNP 414. Sodium 139, potassium 4.5, chloride 104, bicarbonate 30, creatinine 1.4. SHE HAS THE FOLLOWING DIAGNOSES: 1. [id number] myocardial infarction. 2. Decompensated congestive heart failure. 3. Coronary artery disease. 4. History of cerebrovascular accident. 5. Syncope. 6. Left bundle branch block. 7. Mass in the right posterior neck, just posterior to the right thyroid lobe with trachea. 8. An 11 mm nodule in the right lower lobe. 9. Head trauma. DISCUSSION: At this point in time, the patient is asymptomatic. Recommend carotid ultrasound, 2-D echocardiogram, telemetry monitoring. Due to the head trauma, we will treat medically, particularly if she is asymptomatic. Followup the echo and the carotid ultrasound. Also recommend neurology consult. Further recommendations based on the aforementioned studies and consults. MD EVANGELISTA Holland/farhan/benny , 06:46 PM , 07:00 PM
--- NOTE | 2018-04-03 08:03 | ECG ---
Date Performed: 04/03/2018 Time Performed: 02:01:18 PTAGE: 77 years EKG: Baseline artifact present Sinus rhythm Left axis deviation Left bundle branch block Abnormal ECG Compared to prior electrocardiogram, Left bundle branch block is now present. PREVIOUS TRACING : 04/03/2018 01.45 DOCTOR: Oscar Loja Interpretating Date/Time 04/03/2018 08:01:14
--- NOTE | 2018-04-03 08:29 | P.CONNEU ---
History of Present Illness Service: Neurology Primary Care Provider: UNKNOWN Chief Complaint: Syncope History of Present Illness: 77-year-old female with a history of previous stroke admitted for syncopal episode. States she is walking to her kitchen when she went down passed out. She is not exactly sure what happened. Denies any warning or premonitory symptoms. Denies any vision loss dizziness lightheadedness chest pain dyspnea or focal weakness or vertigo. States the last time this happened she had a stroke in 2016 treated up in [place] where she is from. She takes aspirin daily. 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 She is followed by cardi[facility]. Denies any history of headache or seizure. Seen by cardiology felt to have a non-STEMI Review of Systems All other systems reviewed negative except as stated in HPI [facility] - History History Provided By: Patient - Medical History Medical History: Medical History (Last Reviewed 04/03/18 @ 08:00 by Tushar Vásquez) Coronary artery disease Stroke - Surgical History Surgical History: Surgical History (Last Reviewed 04/03/18 @ 08:00 by Tushar Vásquez) Hx of CABG - Family History Family History: Family History (Last Updated 04/02/18 @ 19:02 by Chana Ardon MD) Other Family history non-contributory - Tobacco History Second Hand Smoke Exposure: No Smoking Status: Never smoker - Alcohol History How Often Do You Have a Drink Containing Alcohol: Never - Substance Use History Substance History: No History of Abuse - Travel History Recent Travel in the [place] Within the Last 8 Weeks: No Recent Travel Out of the Country Within the Last 8 Weeks: No - Immunization History Tetanus Immunization: <5 Years Tetanus Immunization Year if Known: 2014 Hx Influenza Vaccine This Season: No Medications and Allergies Active Medications: Active Medications Hydrocodone Bitart/Acetaminophen ([place] 5/325) 1 tab PO Q6H PRN PRN Reason: PAIN SCALE 6 TO 10 Al Hydroxide/Mg Hydroxide (Milk Of Magnesia Liq) 30 ml PO Q12H PRN PRN Reason: Mild Constipation Bisacodyl (Dulcolax Supp) 10 mg RECTAL DAILY PRN PRN Reason: SEVERE CONSITIPATION Carvedilol (Coreg) 3.125 mg PO BID [facility] Last Admin: 04/02/18 21:33 Dose: 3.125 mg Digoxin (Lanoxin) 125 mcg PO EVERY OTHER DAY [facility] Furosemide (Lasix) 20 mg PO DAILY [facility] Lactulose (Lactulose Liq) 30 ml PO DAILY PRN PRN Reason: SEVERE CONSITIPATION Sacubitril/Valsartan (Entresto 49 Mg/51 Mg) 1 tab PO BID [facility] Last Admin: 04/02/18 21:32 Dose: 1 tab Sennosides (Senokot) 17.2 mg PO Q12H PRN PRN Reason: Moderate Constipation Allergies Allergy/AdvReac Type Severity Reaction Status Date / Time acetaminophen [From Percocet] Allergy UNKNOWN Verified 04/02/18 14:07 amlodipine [From Norvasc] Allergy UNKNOWN Verified 04/02/18 14:07 amoxicillin [From Augmentin] Allergy UNKNOWN Verified 04/02/18 14:07 benzonatate Allergy UNKNOWN Verified 04/02/18 14:07 [From Tessalon Perles] clavulanic acid Allergy UNKNOWN Verified 04/02/18 14:07 [From Augmentin] clonidine Allergy UNKNWN Verified 04/02/18 14:07 enalaprilat [From Vasotec] Allergy UNKNOWN Verified 04/02/18 14:07 nadolol Allergy UNKNOWN Verified 04/02/18 14:07 nebivolol [From Bystolic] Allergy UNKNOWN Verified 04/02/18 14:07 oxycodone [From Percocet] Allergy UNKNOWN Verified 04/02/18 14:07 verapamil [From Covera-HS] Allergy UNKNOWN Verified 04/02/18 14:07 FENESIN Allergy UNKNOWN Uncoded 04/02/18 14:07 ZPAK Allergy UNKNOWN Uncoded 04/02/18 14:07 Home Medications Medication Instructions Recorded Confirmed Type Ocuvite 04/02/18 History aspirin 81 mg PO DAILY 04/02/18 04/02/18 History carvedilol 3.125 mg PO BID 04/02/18 04/02/18 History digoxin 0.125 mg PO EVERY OTHER DAY 04/02/18 04/02/18 History furosemide 20 mg PO DAILY 04/02/18 04/02/18 History magnesium 04/02/18 History potassium chloride 10 meq PO BID 04/02/18 04/02/18 History sacubitril-valsartan [Entresto] 1 tab PO BID 04/02/18 04/02/18 History Exam Vital signs: Vital Signs 04/02/18 12:54 04/02/18 12:55 04/02/18 16:42 Temperature Pulse Rate 97 H Respiratory Rate 15 Blood Pressure 147/77 H Pulse Oximetry 96 96 98 04/02/18 17:00 04/02/18 18:32 04/02/18 20:00 Temperature Pulse Rate 96 H 94 H Respiratory Rate 20 20 Blood Pressure 121/80 133/70 Pulse Oximetry 95 04/02/18 20:25 04/02/18 21:32 04/02/18 21:45 Temperature 99.0 F Pulse Rate 92 H 90 93 H Respiratory Rate 20 20 Blood Pressure 119/60 145/85 H Pulse Oximetry 04/03/18 00:00 04/03/18 00:31 04/03/18 04:01 Temperature 99.0 F Pulse Rate 82 84 83 Respiratory Rate 18 Blood Pressure 94/51 L 95/65 L Pulse Oximetry 04/03/18 04:02 04/03/18 04:12 Temperature 97.5 F L Pulse Rate 93 H 87 Respiratory Rate 18 Blood Pressure 100/62 Pulse Oximetry Intake & Output 04/02/18 04/03/18 04/03/18 18:59 06:59 18:59 Weight 72.575 kg 56.9 kg Other: # Voids 1 Date of Last Bowel Movement 04/02/18 Weight On Admission 56.9 kg Narrative: GENERAL: in NAD, SKIN: Warm and dry. HEAD: Right scalp laceration sutured ENT: No nasal bleeding or discharge. Mucous membranes pink and moist. NECK: Trachea midline. No JVD. CARDIOVASCULAR: Regular rate and rhythm. RESPIRATORY: No accessory muscle use. GASTROINTESTINAL: Abdomen soft, non-tender, nondistended. MUSCULOSKELETAL: Extremities without clubbing, cyanosis, or edema. No obvious deformities. NEUROLOGICAL: Awake alert oriented x3 pleasant, no aphasia, visual bryan grossly full mild left periorbital edema secondary to trauma, right forehead thomas, right arm in a brace, left upper extremity spastic paresis strength 3 out of 5, able raise both lower extremity gravity left lower semi-5- out of 5 right lower extremity 5 out of 5, gait not assessed secondary to fall risk PSYCHIATRIC: Appropriate mood and affect; insight and judgment normal. - Constitutional no acute distress Results - Labs CBC & Chem 7: 04/02/18 12:45 Labs: Laboratory Results - last 24 hr 04/02/18 04/02/18 04/02/18 12:45 12:45 12:45 WBC 7.0 RBC 4.10 Hgb 13.6 POC Hgb (Calc) 14.3 Hct 41.0 POC Hct 42.0 MCV 100.0 MCH 33.2 MCHC 33.2 RDW 14.1 Plt Count 187 MPV 9.3 Neut % (Auto) 73.1 H Lymph % (Auto) 18.9 [place] % (Auto) 6.4 Eos % (Auto) 0.9 Baso % (Auto) 0.7 Neut # (Auto) 5.1 Lymph # (Auto) 1.3 [place] # (Auto) 0.4 Eos # (Auto) 0.1 Baso # (Auto) 0.0 WBC Differential . Differential Comment Auto diff final PT 9.7 L INR 1.0 APTT 27.2 POC Sodium 139 POC Potassium 4.5 POC Chloride 104 POC BUN 30 H POC Creatinine 1.4 H POC Glucose 109 Troponin I B-Natriuretic Peptide TSH Blood Type Antibody Screen 04/02/18 04/02/18 04/02/18 12:45 12:45 12:45 WBC RBC Hgb POC Hgb (Calc) Hct POC Hct MCV MCH MCHC RDW Plt Count MPV Neut % (Auto) Lymph % (Auto) [place] % (Auto) Eos % (Auto) Baso % (Auto) Neut # (Auto) Lymph # (Auto) [place] # (Auto) Eos # (Auto) Baso # (Auto) WBC Differential Differential Comment PT INR APTT POC Sodium POC Potassium POC Chloride POC BUN POC Creatinine POC Glucose Troponin I 0.92 H* B-Natriuretic Peptide 414 H TSH Blood Type A Positive Antibody Screen Negative 04/02/18 04/02/18 04/03/18 18:58 20:11 00:50 WBC RBC Hgb POC Hgb (Calc) Hct POC Hct MCV MCH MCHC RDW Plt Count MPV Neut % (Auto) Lymph % (Auto) [place] % (Auto) Eos % (Auto) Baso % (Auto) Neut # (Auto) Lymph # (Auto) [place] # (Auto) Eos # (Auto) Baso # (Auto) WBC Differential Differential Comment PT INR APTT POC Sodium POC Potassium POC Chloride POC BUN POC Creatinine POC Glucose Troponin I 2.31 H* D 2.55 H* D B-Natriuretic Peptide TSH 1.120 Blood Type Antibody Screen - Imaging Impressions Chest X-Ray 04/02/18 12:42 CONCLUSION: Generalized interstitial vascular prominence which may represent developing congestion No evidence of consolidating airspace disease or effusions. Status post median sternotomy. Cervical Spine CT 04/02/18 12:53 CONCLUSION: 1. No fracture or subluxation. 2. There is a mass in the right posterior neck just posterior to the right thyroid lobe and trachea. Malignancy should be excluded. 3. Interlobular septal thickening within the upper lung likely from interstitial edema. Face CT 04/02/18 12:53 CONCLUSION: 1. Facial soft tissue swelling greater than left. 2. No facial fractures. Head CT 04/02/18 12:53 CONCLUSION: 1. No acute intracranial abnormality. 2. Facial and scalp contusions. 3. Cerebral atrophy and chronic ischemic small vessel vasculopathy. Chest CTA 04/02/18 12:59 CONCLUSION: 1. No evidence for pulmonary embolism. 2. Interlobular septal thickening with scattered groundglass densities likely interstitial edema. 3. 11 mm nodule in the right lower lobe, metastatic disease cannot be excluded. A few other smaller nodules are seen within the upper lobes. Wrist X-Ray 04/02/18 16:41 CONCLUSION: Nondisplaced fracture of the distal right radius extending into the radiocarpal joint. Moderate arthropathy at the base of the first metacarpal. Review/Management - Diagnosis (1) Syncope Code(s): R55 - Syncope and collapse Status: Acute Current Visit: Yes (2) Chronic arterial ischemic stroke Code(s): I69.30 - Unspecified sequelae of cerebral infarction Status: Acute Current Visit: Yes (3) Hx of CABG Code(s): Z95.1 - Presence of aortocoronary bypass graft Status: Acute Current Visit: Yes (4) H/O mitral valve repair Code(s): Z98.890 - Other specified postprocedural states Status: Acute Current Visit: Yes (5) Non-STEMI (non-ST elevated myocardial infarction) Code(s): I21.4 - Non-ST elevation (NSTEMI) myocardial infarction Status: Acute Current Visit: Yes - Review/Management Plan: Syncopal episode. Suspect Cardiologic in origin History of previous stroke with left hemiparesis Recommendation EEG; to exclude focal seizure with a history of previous stroke at higher risk although suspect less likely MRI brain to exclude any new infarct Telemetry cardiology evaluation Lung mass per medical; she should follows up with her outpatient PCP and serial imaging. Discussed the patient No driving (1) Syncope Qualifiers: Syncope type: unspecified Qualified Code(s): R55 - Syncope and collapse
--- NOTE | 2018-04-03 08:39 | P.PNCA ---
Subjective Interval history: alert in nad Medications and Allergies Active Medications: Active Medications Hydrocodone Bitart/Acetaminophen ([place] 5/325) 1 tab PO Q6H PRN PRN Reason: PAIN SCALE 6 TO 10 Al Hydroxide/Mg Hydroxide (Milk Of Magnesia Liq) 30 ml PO Q12H PRN PRN Reason: Mild Constipation Bisacodyl (Dulcolax Supp) 10 mg RECTAL DAILY PRN PRN Reason: SEVERE CONSITIPATION Carvedilol (Coreg) 3.125 mg PO BID [facility] Last Admin: 04/02/18 21:33 Dose: 3.125 mg Digoxin (Lanoxin) 125 mcg PO EVERY OTHER DAY [facility] Furosemide (Lasix) 20 mg PO DAILY [facility] Lactulose (Lactulose Liq) 30 ml PO DAILY PRN PRN Reason: SEVERE CONSITIPATION Sacubitril/Valsartan (Entresto 49 Mg/51 Mg) 1 tab PO BID [facility] Last Admin: 04/02/18 21:32 Dose: 1 tab Sennosides (Senokot) 17.2 mg PO Q12H PRN PRN Reason: Moderate Constipation Allergies Allergy/AdvReac Type Severity Reaction Status Date / Time acetaminophen [From Percocet] Allergy UNKNOWN Verified 04/02/18 14:07 amlodipine [From Norvasc] Allergy UNKNOWN Verified 04/02/18 14:07 amoxicillin [From Augmentin] Allergy UNKNOWN Verified 04/02/18 14:07 benzonatate Allergy UNKNOWN Verified 04/02/18 14:07 [From Tessalon Perles] clavulanic acid Allergy UNKNOWN Verified 04/02/18 14:07 [From Augmentin] clonidine Allergy UNKNWN Verified 04/02/18 14:07 enalaprilat [From Vasotec] Allergy UNKNOWN Verified 04/02/18 14:07 nadolol Allergy UNKNOWN Verified 04/02/18 14:07 nebivolol [From Bystolic] Allergy UNKNOWN Verified 04/02/18 14:07 oxycodone [From Percocet] Allergy UNKNOWN Verified 04/02/18 14:07 verapamil [From Covera-HS] Allergy UNKNOWN Verified 04/02/18 14:07 FENESIN Allergy UNKNOWN Uncoded 04/02/18 14:07 ZPAK Allergy UNKNOWN Uncoded 04/02/18 14:07 Home Medications Medication Instructions Recorded Confirmed Type Ocuvite 04/02/18 History aspirin 81 mg PO DAILY 04/02/18 04/02/18 History carvedilol 3.125 mg PO BID 04/02/18 04/02/18 History digoxin 0.125 mg PO EVERY OTHER DAY 04/02/18 04/02/18 History furosemide 20 mg PO DAILY 04/02/18 04/02/18 History magnesium 04/02/18 History potassium chloride 10 meq PO BID 04/02/18 04/02/18 History sacubitril-valsartan [Entresto] 1 tab PO BID 04/02/18 04/02/18 History Physical Exam Vital signs: Vital Signs 04/02/18 12:54 04/02/18 12:55 04/02/18 16:42 Temperature Pulse Rate 97 H Respiratory Rate 15 Blood Pressure 147/77 H Pulse Oximetry 96 96 98 04/02/18 17:00 04/02/18 18:32 04/02/18 20:00 Temperature Pulse Rate 96 H 94 H Respiratory Rate 20 20 Blood Pressure 121/80 133/70 Pulse Oximetry 95 04/02/18 20:25 04/02/18 21:32 04/02/18 21:45 Temperature 99.0 F Pulse Rate 92 H 90 93 H Respiratory Rate 20 20 Blood Pressure 119/60 145/85 H Pulse Oximetry 04/03/18 00:00 04/03/18 00:31 04/03/18 04:01 Temperature 99.0 F Pulse Rate 82 84 83 Respiratory Rate 18 Blood Pressure 94/51 L 95/65 L Pulse Oximetry 04/03/18 04:02 04/03/18 04:12 Temperature 97.5 F L Pulse Rate 93 H 87 Respiratory Rate 18 Blood Pressure 100/62 Pulse Oximetry Intake & Output 04/02/18 04/03/18 04/03/18 18:59 06:59 18:59 Weight 72.575 kg 56.9 kg Other: # Voids 1 Date of Last Bowel Movement 04/02/18 Weight On Admission 56.9 kg - Constitutional no acute distress - Routine HEENT Exam Head: Present: laceration, hematoma, facial swelling - Routine Neck Exam Present: supple - Routine Respiratory Exam Present: CTA bilaterally - Routine Cardiovascular Exam Present: S1, S2 - Routine Abdominal Exam Present: soft - Routine Extremities Exam Comments: no carson Results 04/02/18 12:45 Cardiac Enzymes 04/02/18 04/02/1818 Range/Units 12:45 12:45 20:11 Troponin I 0.92 H* 2.31 H* D (0.02-0.05) ng/mL B-Natriuretic Peptide 414 H (0-100) pg/mL 04/03/18 Range/Units 00:50 Troponin I 2.55 H* D (0.02-0.05) ng/mL B-Natriuretic Peptide (0-100) pg/mL Coagulation 04/02/18 04/02/18 Range/Units 12:45 12:45 PT 9.7 L (9.8-11.6) sec APTT 27.2 (23.4-31.7) sec B-Natriuretic Peptide 414 H (0-100) pg/mL CBC 04/02/18 Range/Units 12:45 WBC 7.0 (4.0-11.0) th/mm3 RBC 4.10 (4.00-5.30) mil/mm3 Hgb 13.6 (11.6-15.3) gm/dL Hct 41.0 (35.0-46.0) % Plt Count 187 (150-450) th/mm3 Neut # (Auto) 5.1 (1.8-7.7) th/mm3 Lymph # (Auto) 1.3 (1.0-4.8) th/mm3 [place] # (Auto) 0.4 (0.0-0.9) th/mm3 Eos # (Auto) 0.1 (0.0-0.4) th/mm3 Baso # (Auto) 0.0 (0.0-0.2) th/mm3 Intake and Output 04/02/18 04/03/18 04/03/18 22:59 06:59 14:59 Other: # Voids 1 Date of Last Bowel Movement 04/02/18 Weight 56.9 kg Weight On Admission 56.9 kg - Imaging and Cardiology Imaging: Impressions Chest X-Ray 04/02/18 12:42 CONCLUSION: Generalized interstitial vascular prominence which may represent developing congestion No evidence of consolidating airspace disease or effusions. Status post median sternotomy. Cervical Spine CT 04/02/18 12:53 CONCLUSION: 1. No fracture or subluxation. 2. There is a mass in the right posterior neck just posterior to the right thyroid lobe and trachea. Malignancy should be excluded. 3. Interlobular septal thickening within the upper lung likely from interstitial edema. Face CT 04/02/18 12:53 CONCLUSION: 1. Facial soft tissue swelling greater than left. 2. No facial fractures. Head CT 04/02/18 12:53 CONCLUSION: 1. No acute intracranial abnormality. 2. Facial and scalp contusions. 3. Cerebral atrophy and chronic ischemic small vessel vasculopathy. Chest CTA 04/02/18 12:59 CONCLUSION: 1. No evidence for pulmonary embolism. 2. Interlobular septal thickening with scattered groundglass densities likely interstitial edema. 3. 11 mm nodule in the right lower lobe, metastatic disease cannot be excluded. A few other smaller nodules are seen within the upper lobes. Wrist X-Ray 04/02/18 16:41 CONCLUSION: Nondisplaced fracture of the distal right radius extending into the radiocarpal joint. Moderate arthropathy at the base of the first metacarpal. Assessment and Plan - Assessment (1) Syncope Code(s): R55 - Syncope and collapse Status: Acute (2) Elevated troponin Code(s): R74.8 - Abnormal levels of other serum enzymes Status: Acute (3) Head injury Code(s): S09.90XA - Unspecified injury of head, initial encounter Status: Acute (4) Laceration of scalp Code(s): S01.01XA - Laceration without foreign body of scalp, initial encounter Status: Acute (5) Mass in neck Code(s): R22.1 - Localized swelling, mass and lump, neck Status: Acute (6) Pulmonary nodule Code(s): R91.1 - Solitary pulmonary nodule Status: Acute (7) Closed fracture dislocation of right wrist joint Code(s): S62.101A - Fracture of unspecified carpal bone, right wrist, initial encounter for closed fracture Status: Acute - Plan 1.) Syncope/nstemi - f/u echo, carotid us, neuro eval, lung mass eval; (1) Syncope Qualifiers: Syncope type: unspecified Qualified Code(s): R55 - Syncope and collapse (3) Head injury Qualifiers: Encounter type: initial encounter Qualified Code(s): S09.90XA - Unspecified injury of head, initial encounter (4) Laceration of scalp Qualifiers: Encounter type: initial encounter Qualified Code(s): S01.01XA - Laceration without foreign body of scalp, initial encounter (7) Closed fracture dislocation of right wrist joint Qualifiers: Encounter type: initial encounter Qualified Code(s): S62.101A - Fracture of unspecified carpal bone, right wrist, initial encounter for closed fracture
[2018-04-03 08:59] LABS: Baso % (Auto) 0.5 % (0.0-2.0); Eos % (Auto) 0.1 % (0.0-4.0); Hematocrit 33.5 % (35.0-46.0); Hemoglobin 11.5 gm/dL (11.6-15.3); Lymph # (Auto) 0.9 th/mm3 (1.0-4.8); Lymph % (Auto) 13.4 % (9.0-44.0); Mean Corpuscular HGB Conc 34.4 % (32.0-36.0); Mean Corpuscular Hemoglobin 33.7 pg (27.0-34.0); Mean Corpuscular Volume 97.9 fL (80.0-100.0); Mean Platelet Volume 9.2 fL (7.0-11.0); Mono # (Auto) 0.6 th/mm3 (0.0-0.9); Mono % (Auto) 8.4 % (0.0-8.0); Neut # (Auto) 5.3 th/mm3 (1.8-7.7); Neut % (Auto) 77.6 % (16.0-70.0); Platelet Count 146 th/mm3 (150-450); Red Blood Count 3.42 mil/mm3 (4.00-5.30); Red Cell Distribution Width 13.9 % (11.6-17.2); White Blood Count 6.9 th/mm3 (4.0-11.0)
[2018-04-03 09:17] LABS: Calcium 8.7 mg/dL (8.5-10.1); Carbon Dioxide 23.7 meq/L (21.0-32.0)
--- NOTE | 2018-04-03 11:06 | P.PN ---
Subjective Interval history: Nursing denies any acute deteriorations overnight. Nursing reports patient was working physical therapy earlier this morning. Patient herself denies having any chest pain since admission. Physical Exam Vital signs: Vital Signs 04/02/18 12:54 04/02/18 12:55 04/02/18 16:42 Temperature Pulse Rate 97 H Respiratory Rate 15 Blood Pressure 147/77 H Pulse Oximetry 96 96 98 04/02/18 17:00 04/02/18 18:32 04/02/18 20:00 Temperature Pulse Rate 96 H 94 H Respiratory Rate 20 20 Blood Pressure 121/80 133/70 Pulse Oximetry 95 04/02/18 20:25 04/02/18 21:32 04/02/18 21:45 Temperature 99.0 F Pulse Rate 92 H 90 93 H Respiratory Rate 20 20 Blood Pressure 119/60 145/85 H Pulse Oximetry 04/03/18 00:00 04/03/18 00:31 04/03/18 04:01 Temperature 99.0 F Pulse Rate 82 84 83 Respiratory Rate 18 Blood Pressure 94/51 L 95/65 L Pulse Oximetry 04/03/18 04:02 04/03/18 04:12 04/03/18 08:00 Temperature 97.5 F L 97.8 F Pulse Rate 93 H 87 90 Respiratory Rate 18 Blood Pressure 100/62 121/71 Pulse Oximetry 98 04/03/18 08:59 04/03/18 09:00 Temperature Pulse Rate 98 H Respiratory Rate Blood Pressure Pulse Oximetry 96 Intake & Output 04/02/18 04/03/18 04/03/18 18:59 06:59 18:59 Weight 72.575 kg 56.9 kg Other: # Voids 1 Date of Last Bowel Movement 04/02/18 04/02/18 Weight On Admission 56.9 kg Narrative: Lying in bed getting EEG at this time EEG has been possible my examination Has obvious laceration that has been sutured nicely over her right-sided scalp Multiple faint scattered ecchymoses noted over scalp and left infraorbital region Heart sounds regular rate rhythm, no murmurs Lungs sounds clear bilaterally, unlabored breathing Results - Labs CBC & Chem 7: 04/03/18 07:01 04/03/18 07:01 Laboratory Results - last 24 hr 04/02/18 04/02/18 04/02/18 12:45 12:45 12:45 WBC 7.0 RBC 4.10 Hgb 13.6 POC Hgb (Calc) 14.3 Hct 41.0 POC Hct 42.0 MCV 100.0 MCH 33.2 MCHC 33.2 RDW 14.1 Plt Count 187 MPV 9.3 Neut % (Auto) 73.1 H Lymph % (Auto) 18.9 [place] % (Auto) 6.4 Eos % (Auto) 0.9 Baso % (Auto) 0.7 Neut # (Auto) 5.1 Lymph # (Auto) 1.3 [place] # (Auto) 0.4 Eos # (Auto) 0.1 Baso # (Auto) 0.0 WBC Differential . Differential Comment Auto diff final PT 9.7 L INR 1.0 APTT 27.2 POC Sodium 139 Sodium POC Potassium 4.5 Potassium POC Chloride 104 Chloride Carbon Dioxide Anion Gap POC BUN 30 H BUN Creatinine POC Creatinine 1.4 H Estimated GFR POC Glucose 109 Random Glucose Calcium Troponin I B-Natriuretic Peptide TSH Blood Type Antibody Screen 04/02/18 04/02/18 04/02/18 12:45 12:45 12:45 WBC RBC Hgb POC Hgb (Calc) Hct POC Hct MCV MCH MCHC RDW Plt Count MPV Neut % (Auto) Lymph % (Auto) [place] % (Auto) Eos % (Auto) Baso % (Auto) Neut # (Auto) Lymph # (Auto) [place] # (Auto) Eos # (Auto) Baso # (Auto) WBC Differential Differential Comment PT INR APTT POC Sodium Sodium POC Potassium Potassium POC Chloride Chloride Carbon Dioxide Anion Gap POC BUN BUN Creatinine POC Creatinine Estimated GFR POC Glucose Random Glucose Calcium Troponin I 0.92 H* B-Natriuretic Peptide 414 H TSH Blood Type A Positive Antibody Screen Negative 04/02/18 04/02/18 04/03/18 18:58 20:11 00:50 WBC RBC Hgb POC Hgb (Calc) Hct POC Hct MCV MCH MCHC RDW Plt Count MPV Neut % (Auto) Lymph % (Auto) [place] % (Auto) Eos % (Auto) Baso % (Auto) Neut # (Auto) Lymph # (Auto) [place] # (Auto) Eos # (Auto) Baso # (Auto) WBC Differential Differential Comment PT INR APTT POC Sodium Sodium POC Potassium Potassium POC Chloride Chloride Carbon Dioxide Anion Gap POC BUN BUN Creatinine POC Creatinine Estimated GFR POC Glucose Random Glucose Calcium Troponin I 2.31 H* D 2.55 H* D B-Natriuretic Peptide TSH 1.120 Blood Type Antibody Screen 04/03/18 04/03/18 07:01 07:01 WBC 6.9 RBC 3.42 L Hgb 11.5 L D POC Hgb (Calc) Hct 33.5 L POC Hct MCV 97.9 MCH 33.7 MCHC 34.4 RDW 13.9 Plt Count 146 L MPV 9.2 Neut % (Auto) 77.6 H Lymph % (Auto) 13.4 [place] % (Auto) 8.4 H Eos % (Auto) 0.1 Baso % (Auto) 0.5 Neut # (Auto) 5.3 Lymph # (Auto) 0.9 L [place] # (Auto) 0.6 Eos # (Auto) 0.0 Baso # (Auto) 0.0 WBC Differential . Differential Comment Auto diff final PT INR APTT POC Sodium Sodium 140 POC Potassium Potassium 4.0 POC Chloride Chloride 105 Carbon Dioxide 23.7 Anion Gap 11 POC BUN BUN 27 H Creatinine 1.03 H POC Creatinine Estimated GFR 52 L POC Glucose Random Glucose 91 Calcium 8.7 Troponin I B-Natriuretic Peptide TSH Blood Type Antibody Screen - Imaging Impressions Chest X-Ray 04/02/18 12:42 CONCLUSION: Generalized interstitial vascular prominence which may represent developing congestion No evidence of consolidating airspace disease or effusions. Status post median sternotomy. Cervical Spine CT 04/02/18 12:53 CONCLUSION: 1. No fracture or subluxation. 2. There is a mass in the right posterior neck just posterior to the right thyroid lobe and trachea. Malignancy should be excluded. 3. Interlobular septal thickening within the upper lung likely from interstitial edema. Face CT 04/02/18 12:53 CONCLUSION: 1. Facial soft tissue swelling greater than left. 2. No facial fractures. Head CT 04/02/18 12:53 CONCLUSION: 1. No acute intracranial abnormality. 2. Facial and scalp contusions. 3. Cerebral atrophy and chronic ischemic small vessel vasculopathy. Chest CTA 04/02/18 12:59 CONCLUSION: 1. No evidence for pulmonary embolism. 2. Interlobular septal thickening with scattered groundglass densities likely interstitial edema. 3. 11 mm nodule in the right lower lobe, metastatic disease cannot be excluded. A few other smaller nodules are seen within the upper lobes. Wrist X-Ray 04/02/18 16:41 CONCLUSION: Nondisplaced fracture of the distal right radius extending into the radiocarpal joint. Moderate arthropathy at the base of the first metacarpal. Assessment and Plan - Plan Elderly female brought in as a level 2 trauma alert after she sustained a traumatic syncope and collapse. Patient sustained a large scalp laceration and left eye blunt trauma. Large head laceration/left eye ecchymoses and swelling from syncope and collapse : -The patient has been evaluated by the trauma surgeon in the emergency room. She was cleared for admission to the medical service. - Large scalp laceration has been repaired by the ED. Patient reports she had normal vision after the initial injury prior to extensive swelling of the left eye. - Continue dressing per trauma team recommendations. - Pain control - Supportive care. Syncope and collapse: Could be secondary to arrhythmia vs NSTEMI -Unable to proceed with antiplatelets at this time or anticoagulation given significant trauma - orthostatics and carotid massage would be contraindicated given the patient's age and possible and NSTEMI - Patient has elevated troponins now have climbed higher, past 2.0. I instructed nursing to notify cardiology who was following the patient - Neurology following, recommending basic stroke workup to rule out any other etiologies as well as EEG. CT head so far negative. MRI of the head and ultrasound of the neck are still pending. - TSH wnl. Neck mass and pulmonary nodules: - Patient denies any history of this. She denies having any pulmonary symptoms. -Oncology following History of congestive heart failure/paroxysmal atrial fibrillation and CAD: - home entresto, Coreg, Lasix. Hold aspirin for now. - Cardiology following YESSENIA: -Improved Right distal radius fracture: Nondisplaced. - Splint applied by ED. Will need outpatient follow up. GI prophylaxis: Stool softener PRN constipation. DVT PPx: SCDs. Chemoprophylaxis contraindicated given recent trauma.
--- NOTE | 2018-04-03 11:47 | US ---
EXAM DATE: 04/03/2018 11:43 AM EST AGE/SEX: 77 years / Female INDICATIONS: Syncope. CLINICAL DATA: This is the patient's initial encounter. Patient reports that signs and symptoms have been present for 1 day and indicates a pain score of 0/10. MEDICAL/SURGICAL HISTORY: . Coronary artery disease. Stroke. CABG. COMPARISON: No prior exams available for comparison. VELOCITY PARAMETERS: ICA/CCA Ratio: Right 0.7 , Left 0.7 ICA: Right 112 cm/sec, Left 115 cm/sec CCA: Right 162 cm/sec, Left 159 cm/sec ECA: Right 88 cm/sec, Left 161 cm/sec Vertebral: Right 59 cm/sec antegrade, Left 80 cm/sec antegrade FINDINGS: Right Carotid: Mild to moderate arteriosclerotic plaque is visualized.The waveforms are within leo l limits. Left Carotid: Mild to moderate arteriosclerotic plaque is visualized. The waveforms are within leo l limits. Other: None. CONCLUSION: Mild to moderate plaquing with no evidence of stenosis. Electronically signed by: Cortez Portillo MD 04/03/2018 11:45 AM EST
[2018-04-03] MEDS: Furosemide 20 MG Tablet PO SCH (13:34)
[2018-04-03] MEDS ORDERED: LORazepam 0.5 MG Tablet PO ONE (14:40)
--- NOTE | 2018-04-03 15:15 | MG ---
cc: Colin Garcia MD, PhD TEST NUMBER: [id number]. DATE OF STUDY: 04/03/2018 TECHNIQUE: A 17-channel EEG. DESCRIPTION: Background rhythm reveals a symmetrical alpha activity with a frequency of 8-10 Hz. Amplitude is 20-30 microvolts. There is the expected anterior decrement to the response. During drowsiness, there is mild slowing in the theta range at about 6 Hz with the same amplitude. There were no lateralizing features identified. Rare muscle artifact is seen. There are no epileptiform features seen. Photic stimulation results in a symmetrical driving response. INTERPRETATION: Normal electroencephalogram. Colin Garcia MD, PhD GENE/em , 02:41 PM , 02:46 PM
--- NOTE | 2018-04-03 16:00 | ECHRPT ---
Indication: SYNCOPE CONCLUSIONS The left ventricular systolic function is severely reduced with an estimated ejection fraction in th e range of 20-25%. Moderately dilated left ventricle. There is global left ventricular dysfunction. Normally functioning mitral valve bioprosthesis. Mitral valve mean gradient is 4 mmHg. Diffuse calcification of the aortic valve. No aortic valve stenosis. Trivial pulmonary valve regurgitation. BP: / HR: Rhythm: Other MEASUREMENTS (Male / Female) Normal Values Technical Quality:Fair 2D ECHO LV Diastolic Diameter PLAX 5.1 cm 4.2 - 5.9 / 3.9 - 5.3 cm LV Systolic Diameter PLAX 4.7 cm IVS Diastolic Thickness 1.0 cm 0.6 - 1.0 / 0.6 - 0.9 cm LVPW Diastolic Thickness 1.0 cm 0.6 - 1.0 / 0.6 - 0.9 cm LV Relative Wall Thickness 0.4 LVOT Diameter 1.8 cm LV Ejection Fraction MOD 4C 24.1 % LV Ejection Fraction 4C AL 23.5 % M-MODE LV Diastolic Diameter MM 5.2 cm 4.2 - 5.9 / 3.9 - 5.3 cm LV Systolic Diameter MM 4.8 cm LV Ejection Fraction MM Teich 18.1 % IVS Diastolic Thickness MM 1.0 cm 0.6 - 1.0 / 0.6 - 0.9 cm LVPW Diastolic Thickness MM 1.0 cm 0.6 - 1.0 / 0.6 - 0.9 cm LV Relative Wall Thickness MM 0.4 0.24 - 0.42 / 0.22 - 0.42 Aortic Root Diameter MM 2.3 cm LA Systolic Diameter MM 2.1 cm LA Ao Ratio MM 0.9 AV Cusp Separation MM 1.2 cm DOPPLER AV Peak Velocity 216.0 cm/s AV Peak Gradient 18.7 mmHg AV Mean Gradient 11.0 mmHg AV Velocity Time Integral 37.3 cm LVOT Peak Velocity 137.0 cm/s LVOT Peak Gradient 7.5 mmHg LVOT Velocity Time Integral 19.6 cm AV Area Cont Eq vti 1.3 cm AV Area Cont Eq pk 1.6 cm MV Peak Velocity 170.0 cm/s MV Peak Gradient 11.6 mmHg MV Mean Velocity 93.8 cm/s MV Mean Gradient 4.0 mmHg MV Area PHT 4.2 cm Mitral E Point Velocity 101.4 cm/s Mitral A Point Velocity 134.0 cm/s Mitral E to A Ratio 0.8 LV E' Lateral Velocity 7.5 cm/s Mitral E to LV E' Lateral Ratio 13.5 LV E' Septal Velocity 4.4 cm/s Mitral E to LV E' Septal Ratio 23.1 PV Peak Velocity 159.0 cm/s PV Peak Gradient 10.1 mmHg FINDINGS LEFT VENTRICLE The left ventricular systolic function is severely reduced with an estimated ejection fraction in th e range of 20-25%. Moderately dilated left ventricle. There is global left ventricular dysfunction. RIGHT VENTRICLE Normal right ventricular size and systolic function. LEFT ATRIUM The left atrial size is normal. RIGHT ATRIUM The right atrial size is normal. ATRIAL SEPTUM Normal atrial septal thickness without atrial level shunting by limited color doppler interrogation. AORTA The aortic root and proximal ascending aorta are normal in size on limited imaging. MITRAL VALVE Normally functioning mitral valve bioprosthesis. Mitral valve mean gradient is 4 mmHg. AORTIC VALVE Trileaflet aortic valve. Diffuse calcification of the aortic valve. No aortic valve stenosis. TRICUSPID VALVE Structurally normal tricuspid valve. No tricuspid valve stenosis or regurgitation. PULMONARY VALVE Trivial pulmonary valve regurgitation. VESSELS The inferior vena cava is normal in size. PERICARDIUM No pericardial effusion. Aníbal Deras MD (Electronically Signed) Final Date:03 April 2018 15:59
--- NOTE | 2018-04-03 19:01 | MB ---
cc: Dianna Marin MD DATE: 04/03/2018 CHIEF COMPLAINT: 1. Neck mass. 2. Lung mass. HISTORY OF PRESENT ILLNESS: The patient is a 77-year-old lady with a history of coronary artery disease, status post CABG and valve replacement approximately 2 years ago, who was admitted to the hospital last night on 04/02/2018 as a trauma alert with head injury after a fall. She had a syncopal episode and has loss of memory associated with this. She also has a history of paroxysmal atrial fibrillation. In the emergency room, she was found to have a large scalp laceration, swelling of the left eye, and bruising present on the face. Cardiology team and Neurology team have been consulted while inpatient. PAST MEDICAL HISTORY: CVA, coronary artery disease, atrial fibrillation. PAST SURGICAL HISTORY: CABG. FAMILY HISTORY: No known family history of cancer. SOCIAL HISTORY: The patient is a never smoker. Denies any alcohol use. REVIEW OF SYSTEMS: As above in the HPI. All others negative. HOSPITAL MEDICATIONS: Include: 1. Carvedilol. 2. Digoxin. 3. Lasix. 4. Lactulose. 5. Entresto. 6. Senna. 5. Ativan. LABORATORY STUDIES: Creatinine of 1.03, elevated troponin, TSH within normal limits. White blood cell count 6.9, hemoglobin 11.5, and platelet count is 146,000. CBC on admission with white blood cell count 7, hemoglobin 13.6, and platelet count of 187,000. Imaging study with carotid Doppler with [id number] plaquing with no evidence of stenosis. Chest CTA with no evidence for pulmonary embolism, interlobular septal thickening with scattered ground glass densities likely interstitial edema, 11 mm nodule in the right lower lobe. Metastatic disease cannot be excluded. Head CT with no acute intracranial abnormality. Small vessel vasculopathy. Face CT with facial soft tissue swelling, no facial fractures. Cervical spine CT with no fracture. Mass in the right posterior neck just posterior to the right lobe of the thyroid and trachea. Chest x-ray with interstitial vascular prominence and status post median sternotomy. PHYSICAL EXAMINATION: GENERAL: Chronically ill-appearing lady in no distress. HEENT: Head is normocephalic, atraumatic. Eyes: PERRLA. EOMI. NECK: Supple. No palpable lymphadenopathy. CARDIOVASCULAR: Regular rate and rhythm. No murmurs. RESPIRATORY: Clear to auscultation bilaterally. ABDOMEN: Soft, nontender, nondistended. Bowel sounds present. EXTREMITIES: No edema. NEUROLOGIC: Grossly nonfocal. PSYCHIATRIC: Appropriate mood and affect. ASSESSMENT AND PLAN: Neck mass suspicious for malignancy with associated suspicious nodule in the lung. We will order ultrasound-guided biopsy to be performed by IR of neck mass. A suspicious lung lesion is in the middle of the right lobe, uncertain if this can be achieved through interventional radiology biopsy, unlikely cannot be received through bronchoscopy and I placed the call to radiology asking them to return my call at their convenience. Dianna Marin MD ALICE/darwin , 05:51 PM , 05:59 PM
--- NOTE | 2018-04-03 19:34 | MR ---
EXAM DATE: 04/03/2018 7:28 PM EST AGE/SEX: 77 years / Female INDICATIONS: . Abnormal gait with history of falling. CLINICAL DATA: This is the patient's initial encounter. Patient reports that signs and symptoms have been present for 1 day and indicates a pain score of 9/10. MEDICAL/SURGICAL HISTORY: Stroke. CABG. Heart valve replacement [place] [facility] [place], [place] [facility] [place]. . TECHNIQUE: 3D [id number] MRA was performed. Source images, multiplanar STS MIP, and 3D volum e MIP reconstructions were reviewed. FINDINGS: There is excellent visualization of the major intracranial arteries out to the second-order branch ve ssels. There is no evidence for aneurysm, vessel truncation or stenosis, and no evidence for vascula r malformation. CONCLUSION: 1. Negative MRA [place] ([place]) non contrast. Electronically signed by: Lee Shannon MD 04/03/2018 7:32 PM EST
--- NOTE | 2018-04-03 19:35 | MR ---
EXAM DATE: 04/03/2018 7:31 PM EST AGE/SEX: 77 years / Female INDICATIONS: CVA. History of multiple falls. CLINICAL DATA: This is the patient's initial encounter. Patient reports that signs and symptoms have been present for 1 day and indicates a pain score of 8/10. MEDICAL/SURGICAL HISTORY: Stroke. CABG. Heart valve replacement. COMPARISON: [facility] [place], MRA HEAD W/O CONTRAST, 04/03/2018. [facility] [place], [place] HEAD W/O CONTRAST, 04/02/2018. . TECHNIQUE: Multiplanar, multisequence examination of the brain was performed without contrast. FINDINGS: Diffusion weighted images demonstrate no evidence for acute infarction. There is mild diffuse promine nce of the CSF spaces, ventricles and cisterns. There is moderate increased FLAIR signal in the bilat eral subcortical white matter, centrum semiovale and periventricular white matter most characteristic of chronic microvascular ischemic disease. There is also mild increased signal within the frannie and b rainstem. Remote right basal ganglia lacunar infarct. There are no signs of acute intracranial hemorr robbie or mass. Remote left thalamic lacunar infarct. There is a focus of blooming artifact in the righ t thalamus to represent a remote focus of blood. CONCLUSION: 1. Atrophy and white matter disease with no signs of acute infarct. Electronically signed by: Lee Shannon MD 04/03/2018 7:34 PM EST
--- NOTE | 2018-04-04 06:52 | P.PNNEU ---
Subjective Subjective Comments: No cp, no dyspnea, no roa, no new focal weakness, no vision loss, no syncope Active Medications: Active Medications Hydrocodone Bitart/Acetaminophen ([place] 5/325) 1 tab PO Q6H PRN PRN Reason: PAIN SCALE 6 TO 10 Al Hydroxide/Mg Hydroxide (Milk Of Magnesia Liq) 30 ml PO Q12H PRN PRN Reason: Mild Constipation Bisacodyl (Dulcolax Supp) 10 mg RECTAL DAILY PRN PRN Reason: SEVERE CONSITIPATION Carvedilol (Coreg) 3.125 mg PO BID [facility] Last Admin: 04/03/18 20:40 Dose: 3.125 mg Digoxin (Lanoxin) 125 mcg PO EVERY OTHER DAY [facility] Furosemide (Lasix) 20 mg PO DAILY [facility] Last Admin: 04/03/18 13:34 Dose: 20 mg Lactulose (Lactulose Liq) 30 ml PO DAILY PRN PRN Reason: SEVERE CONSITIPATION Sacubitril/Valsartan (Entresto 49 Mg/51 Mg) 1 tab PO BID [facility] Last Admin: 04/03/18 20:41 Dose: 1 tab Sennosides (Senokot) 17.2 mg PO Q12H PRN PRN Reason: Moderate Constipation Allergies/Adverse Reactions: Allergies Allergy/AdvReac Type Severity Reaction Status Date / Time acetaminophen [From Percocet] Allergy UNKNOWN Verified 04/02/18 14:07 amlodipine [From Norvasc] Allergy UNKNOWN Verified 04/02/18 14:07 amoxicillin [From Augmentin] Allergy UNKNOWN Verified 04/02/18 14:07 benzonatate Allergy UNKNOWN Verified 04/02/18 14:07 [From Tessalon Perles] clavulanic acid Allergy UNKNOWN Verified 04/02/18 14:07 [From Augmentin] clonidine Allergy UNKNWN Verified 04/02/18 14:07 enalaprilat [From Vasotec] Allergy UNKNOWN Verified 04/02/18 14:07 nadolol Allergy UNKNOWN Verified 04/02/18 14:07 nebivolol [From Bystolic] Allergy UNKNOWN Verified 04/02/18 14:07 oxycodone [From Percocet] Allergy UNKNOWN Verified 04/02/18 14:07 verapamil [From Covera-HS] Allergy UNKNOWN Verified 04/02/18 14:07 FENESIN Allergy UNKNOWN Uncoded 04/02/18 14:07 ZPAK Allergy UNKNOWN Uncoded 04/02/18 14:07 Physical Exam Vital signs: Vital Signs 04/03/18 08:00 04/03/18 08:59 04/03/18 09:00 Temperature 97.8 F Pulse Rate 90 98 H Respiratory Rate Blood Pressure 121/71 Pulse Oximetry 98 96 04/03/18 11:50 04/03/18 11:51 04/03/18 16:00 Temperature 98.1 F Pulse Rate 88 97 H 81 Respiratory Rate 18 18 18 Blood Pressure 110/60 126/73 114/64 Pulse Oximetry 99 96 98 04/03/18 20:00 04/03/18 20:39 04/04/18 00:00 Temperature 98.2 F 98.2 F Pulse Rate 82 84 79 Respiratory Rate 18 18 Blood Pressure 126/73 104/54 L Pulse Oximetry 97 97 04/04/18 04:00 04/04/18 04:03 Temperature 97.4 F L Pulse Rate 93 H 76 Respiratory Rate 16 Blood Pressure 110/73 Pulse Oximetry 99 Intake & Output 04/03/18 04/03/18 04/04/18 06:59 18:59 06:59 Intake Total 660 / 660 50 / 50 Output Total 1100 / 1100 Balance 660 / 660 -1050 / -1050 Weight 56.9 kg 55.7 kg Intake: Oral 660 / 660 50 / 50 Output: Urine 1100 / 1100 Other: # Voids 1 3 Date of Last Bowel Movement 04/02/18 04/03/18 04/03/18 # Bowel Movements 1 Weight On Admission 56.9 kg Narrative: GENERAL: in NAD, SKIN: Warm and dry. HEAD: Right scalp laceration sutured ENT: No nasal bleeding or discharge. Mucous membranes pink and moist. NECK: Trachea midline. No JVD. CARDIOVASCULAR: Regular rate and rhythm. RESPIRATORY: No accessory muscle use. GASTROINTESTINAL: Abdomen soft, non-tender, nondistended. MUSCULOSKELETAL: Extremities without clubbing, cyanosis, or edema. No obvious deformities. NEUROLOGICAL: Awake alert oriented x3 pleasant, no aphasia, visual bryan grossly full mild left periorbital edema secondary to trauma, right forehead thomas, right arm in a brace, left upper extremity spastic paresis strength 3 out of 5, able raise both lower extremity gravity left lower semi-5- out of 5 right lower extremity 5 out of 5, gait not assessed secondary to fall risk PSYCHIATRIC: Appropriate mood and affect; insight and judgment normal. - Constitutional no acute distress - Routine HEENT Exam Eye: Present: EOMI Objective Laboratory Results - last 24 hr 04/03/18 04/03/18 07:01 07:01 WBC 6.9 RBC 3.42 L Hgb 11.5 L D Hct 33.5 L MCV 97.9 MCH 33.7 MCHC 34.4 RDW 13.9 Plt Count 146 L MPV 9.2 Neut % (Auto) 77.6 H Lymph % (Auto) 13.4 [place] % (Auto) 8.4 H Eos % (Auto) 0.1 Baso % (Auto) 0.5 Neut # (Auto) 5.3 Lymph # (Auto) 0.9 L [place] # (Auto) 0.6 Eos # (Auto) 0.0 Baso # (Auto) 0.0 WBC Differential . Differential Comment Auto diff final Sodium 140 Potassium 4.0 Chloride 105 Carbon Dioxide 23.7 Anion Gap 11 BUN 27 H Creatinine 1.03 H Estimated GFR 52 L Random Glucose 91 Calcium 8.7 Review/Management - Diagnosis (1) Syncope Code(s): R55 - Syncope and collapse Status: Acute Current Visit: Yes (2) Chronic arterial ischemic stroke Code(s): I69.30 - Unspecified sequelae of cerebral infarction Status: Acute Current Visit: Yes (3) Hx of CABG Code(s): Z95.1 - Presence of aortocoronary bypass graft Status: Acute Current Visit: Yes (4) H/O mitral valve repair Code(s): Z98.890 - Other specified postprocedural states Status: Acute Current Visit: Yes (5) Non-STEMI (non-ST elevated myocardial infarction) Code(s): I21.4 - Non-ST elevation (NSTEMI) myocardial infarction Status: Acute Current Visit: Yes - Review/Management Plan: Syncopal episode. Suspect Cardiologic in origin; depressed ejection fraction History of previous stroke with left hemiparesis MRI MRA brain reviewed. No acute lesion no significant vaso-occlusive disease EEG negative for seizure activity Recommendation Neuro stable Depressed ejection fraction with global hypokinesis; patient states this was found on an echo [place]. Further management per cardiology Being followed by hematology oncology No driving (1) Syncope Qualifiers: Syncope type: unspecified Qualified Code(s): R55 - Syncope and collapse
--- NOTE | 2018-04-04 07:38 | P.PNCA ---
Subjective Interval history: asleep in nad Medications and Allergies Active Medications: Active Medications Hydrocodone Bitart/Acetaminophen ([place] 5/325) 1 tab PO Q6H PRN PRN Reason: PAIN SCALE 6 TO 10 Al Hydroxide/Mg Hydroxide (Milk Of Magnesia Liq) 30 ml PO Q12H PRN PRN Reason: Mild Constipation Bisacodyl (Dulcolax Supp) 10 mg RECTAL DAILY PRN PRN Reason: SEVERE CONSITIPATION Carvedilol (Coreg) 3.125 mg PO BID [facility] Last Admin: 04/03/18 20:40 Dose: 3.125 mg Digoxin (Lanoxin) 125 mcg PO EVERY OTHER DAY [facility] Furosemide (Lasix) 20 mg PO DAILY [facility] Last Admin: 04/03/18 13:34 Dose: 20 mg Lactulose (Lactulose Liq) 30 ml PO DAILY PRN PRN Reason: SEVERE CONSITIPATION Sacubitril/Valsartan (Entresto 49 Mg/51 Mg) 1 tab PO BID [facility] Last Admin: 04/03/18 20:41 Dose: 1 tab Sennosides (Senokot) 17.2 mg PO Q12H PRN PRN Reason: Moderate Constipation Allergies Allergy/AdvReac Type Severity Reaction Status Date / Time acetaminophen [From Percocet] Allergy UNKNOWN Verified 04/02/18 14:07 amlodipine [From Norvasc] Allergy UNKNOWN Verified 04/02/18 14:07 amoxicillin [From Augmentin] Allergy UNKNOWN Verified 04/02/18 14:07 benzonatate Allergy UNKNOWN Verified 04/02/18 14:07 [From Tessalon Perles] clavulanic acid Allergy UNKNOWN Verified 04/02/18 14:07 [From Augmentin] clonidine Allergy UNKNWN Verified 04/02/18 14:07 enalaprilat [From Vasotec] Allergy UNKNOWN Verified 04/02/18 14:07 nadolol Allergy UNKNOWN Verified 04/02/18 14:07 nebivolol [From Bystolic] Allergy UNKNOWN Verified 04/02/18 14:07 oxycodone [From Percocet] Allergy UNKNOWN Verified 04/02/18 14:07 verapamil [From Covera-HS] Allergy UNKNOWN Verified 04/02/18 14:07 FENESIN Allergy UNKNOWN Uncoded 04/02/18 14:07 ZPAK Allergy UNKNOWN Uncoded 04/02/18 14:07 Home Medications Medication Instructions Recorded Confirmed Type Ocuvite 04/02/18 History aspirin 81 mg PO DAILY 04/02/18 04/02/18 History carvedilol 3.125 mg PO BID 04/02/18 04/02/18 History digoxin 0.125 mg PO EVERY OTHER DAY 04/02/18 04/02/18 History furosemide 20 mg PO DAILY 04/02/18 04/02/18 History magnesium 04/02/18 History potassium chloride 10 meq PO BID 04/02/18 04/02/18 History sacubitril-valsartan [Entresto] 1 tab PO BID 04/02/18 04/02/18 History Physical Exam Vital signs: Vital Signs 04/03/18 08:00 04/03/18 08:59 04/03/18 09:00 Temperature 97.8 F Pulse Rate 90 98 H Respiratory Rate Blood Pressure 121/71 Pulse Oximetry 98 96 04/03/18 11:50 04/03/18 11:51 04/03/18 16:00 Temperature 98.1 F Pulse Rate 88 97 H 81 Respiratory Rate 18 18 18 Blood Pressure 110/60 126/73 114/64 Pulse Oximetry 99 96 98 04/03/18 20:00 04/03/18 20:39 04/04/18 00:00 Temperature 98.2 F 98.2 F Pulse Rate 82 84 79 Respiratory Rate 18 18 Blood Pressure 126/73 104/54 L Pulse Oximetry 97 97 04/04/18 04:00 04/04/18 04:03 Temperature 97.4 F L Pulse Rate 93 H 76 Respiratory Rate 16 Blood Pressure 110/73 Pulse Oximetry 99 Intake & Output 04/03/18 04/04/18 04/04/18 18:59 06:59 18:59 Intake Total 660 / 660 50 / 50 Output Total 1100 / 1100 Balance 660 / 660 -1050 / -1050 Weight 55.7 kg Intake: Oral 660 / 660 50 / 50 Output: Urine 1100 / 1100 Other: # Voids 3 Date of Last Bowel Movement 04/03/18 04/03/18 # Bowel Movements 1 - Constitutional no acute distress - Routine HEENT Exam Head: Present: laceration, hematoma, facial swelling - Routine Neck Exam Present: supple - Routine Respiratory Exam Present: CTA bilaterally - Routine Cardiovascular Exam Present: S1, S2 - Routine Abdominal Exam Present: soft - Routine Extremities Exam Comments: no carson Results 04/03/18 07:01 04/03/18 07:01 Cardiac Enzymes 04/02/18 04/02/18 04/02/18 Range/Units 12:45 12:45 20:11 Troponin I 0.92 H* 2.31 H* D (0.02-0.05) ng/mL B-Natriuretic Peptide 414 H (0-100) pg/mL 04/03/18 Range/Units 00:50 Troponin I 2.55 H* D (0.02-0.05) ng/mL B-Natriuretic Peptide (0-100) pg/mL Coagulation 04/02/18 04/02/18 Range/Units 12:45 12:45 PT 9.7 L (9.8-11.6) sec APTT 27.2 (23.4-31.7) sec B-Natriuretic Peptide 414 H (0-100) pg/mL CBC 04/02/18 04/03/18 Range/Units 12:45 07:01 WBC 7.0 6.9 (4.0-11.0) th/mm3 RBC 4.10 3.42 L (4.00-5.30) mil/mm3 Hgb 13.6 11.5 L D (11.6-15.3) gm/dL Hct 41.0 33.5 L (35.0-46.0) % Plt Count 187 146 L (150-450) th/mm3 Neut # (Auto) 5.1 5.3 (1.8-7.7) th/mm3 Lymph # (Auto) 1.3 0.9 L (1.0-4.8) th/mm3 [place] # (Auto) 0.4 0.6 (0.0-0.9) th/mm3 Eos # (Auto) 0.1 0.0 (0.0-0.4) th/mm3 Baso # (Auto) 0.0 0.0 (0.0-0.2) th/mm3 Comprehensive Metabolic Panel 04/03/18 Range/Units 07:01 Sodium 140 (136-145) meq/L Potassium 4.0 (3.5-5.1) meq/L Chloride 105 (98-107) meq/L Carbon Dioxide 23.7 (21.0-32.0) meq/L BUN 27 H (7-18) mg/dL Creatinine 1.03 H (0.50-1.00) mg/dL Calcium 8.7 (8.5-10.1) mg/dL Intake and Output 04/03/18 04/04/18 04/04/18 22:59 06:59 14:59 Intake Total 660 / 660 50 / 50 Output Total 1100 / 1100 Balance 660 / 660 -1050 / -1050 Intake: Oral 660 / 660 50 / 50 Output: Urine 1100 / 1100 Other: # Voids 3 Date of Last Bowel Movement 04/03/18 # Bowel Movements 1 Weight 55.7 kg - Imaging and Cardiology Imaging: Impressions Chest X-Ray 04/02/18 12:42 CONCLUSION: Generalized interstitial vascular prominence which may represent developing congestion No evidence of consolidating airspace disease or effusions. Status post median sternotomy. Cervical Spine CT 04/02/18 12:53 CONCLUSION: 1. No fracture or subluxation. 2. There is a mass in the right posterior neck just posterior to the right thyroid lobe and trachea. Malignancy should be excluded. 3. Interlobular septal thickening within the upper lung likely from interstitial edema. Face CT 04/02/18 12:53 CONCLUSION: 1. Facial soft tissue swelling greater than left. 2. No facial fractures. Head CT 04/02/18 12:53 CONCLUSION: 1. No acute intracranial abnormality. 2. Facial and scalp contusions. 3. Cerebral atrophy and chronic ischemic small vessel vasculopathy. Chest CTA 04/02/18 12:59 CONCLUSION: 1. No evidence for pulmonary embolism. 2. Interlobular septal thickening with scattered groundglass densities likely interstitial edema. 3. 11 mm nodule in the right lower lobe, metastatic disease cannot be excluded. A few other smaller nodules are seen within the upper lobes. Wrist X-Ray 04/02/18 16:41 CONCLUSION: Nondisplaced fracture of the distal right radius extending into the radiocarpal joint. Moderate arthropathy at the base of the first metacarpal. Carotid Doppler Study 04/03/18 00:00 CONCLUSION: Mild to moderate plaquing with no evidence of stenosis. Head MRI 04/03/18 00:00 CONCLUSION: 1. Atrophy and white matter disease with no signs of acute infarct. Head MRA 04/03/18 08:30 CONCLUSION: 1. Negative MRA [place] ([place] [facility] [place]) non contrast. Assessment and Plan - Assessment (1) Syncope Code(s): R55 - Syncope and collapse Status: Acute (2) Elevated troponin Code(s): R74.8 - Abnormal levels of other serum enzymes Status: Acute (3) Head injury Code(s): S09.90XA - Unspecified injury of head, initial encounter Status: Acute (4) Laceration of scalp Code(s): S01.01XA - Laceration without foreign body of scalp, initial encounter Status: Acute (5) Mass in neck Code(s): R22.1 - Localized swelling, mass and lump, neck Status: Acute (6) Pulmonary nodule Code(s): R91.1 - Solitary pulmonary nodule Status: Acute (7) Closed fracture dislocation of right wrist joint Code(s): S62.101A - Fracture of unspecified carpal bone, right wrist, initial encounter for closed fracture Status: Acute - Plan 1.) Syncope/nstemi - cardiomyopathy with bio mvr, f/u neuro eval, lung mass eval ; rec EP eval (1) Syncope Qualifiers: Syncope type: unspecified Qualified Code(s): R55 - Syncope and collapse (3) Head injury Qualifiers: Encounter type: initial encounter Qualified Code(s): S09.90XA - Unspecified injury of head, initial encounter (4) Laceration of scalp Qualifiers: Encounter type: initial encounter Qualified Code(s): S01.01XA - Laceration without foreign body of scalp, initial encounter (7) Closed fracture dislocation of right wrist joint Qualifiers: Encounter type: initial encounter Qualified Code(s): S62.101A - Fracture of unspecified carpal bone, right wrist, initial encounter for closed fracture
[2018-04-04] MEDS: Digoxin 125 MCG Tablet PO SCH (09:34)
--- NOTE | 2018-04-04 10:09 | P.PNONC ---
Subjective Interval history: Afebrile. Patient awake and alert on approach, she is meeting with the analyst sales. She has no complaints at this time, reports feeling well. Objective Vital Signs/Intake & Output: Vital Signs 04/03/18 11:50 04/03/18 11:51 04/03/18 16:00 Temperature 98.1 F Pulse Rate 88 97 H 81 Respiratory Rate 18 18 18 Blood Pressure 110/60 126/73 114/64 Pulse Oximetry 99 96 98 04/03/18 20:00 04/03/18 20:39 04/04/18 00:00 Temperature 98.2 F 98.2 F Pulse Rate 82 84 79 Respiratory Rate 18 18 Blood Pressure 126/73 104/54 L Pulse Oximetry 97 97 04/04/18 04:00 04/04/18 04:03 04/04/18 08:00 Temperature 97.4 F L 98 F Pulse Rate 93 H 76 110 H Respiratory Rate 16 18 Blood Pressure 110/73 154/83 H Pulse Oximetry 99 97 Intake & Output 04/03/18 04/04/18 04/04/18 18:59 06:59 18:59 Intake Total 660 / 660 50 / 50 Output Total 1100 / 1100 Balance 660 / 660 -1050 / -1050 Weight 55.7 kg Intake: Oral 660 / 660 50 / 50 Output: Urine 1100 / 1100 Other: # Voids 3 Date of Last Bowel Movement 04/03/18 04/03/18 # Bowel Movements 1 Result Diagrams: 04/03/18 07:01 04/03/18 07:01 Imaging Studies: Impressions Carotid Doppler Study 04/03/18 00:00 CONCLUSION: Mild to moderate plaquing with no evidence of stenosis. Head MRI 04/03/18 00:00 CONCLUSION: 1. Atrophy and white matter disease with no signs of acute infarct. Head MRA 04/03/18 08:30 CONCLUSION: 1. Negative MRA Cow ([place] [facility] [place]) non contrast. Medications: Active Medications Generic Name Dose Route Start Last Admin Trade Name Freq PRN Reason Stop Dose Admin Carvedilol 3.125 mg 04/02/18 21:00 04/04/18 09:35 Coreg PO 3.125 mg BID FRACISCO Administration Digoxin 125 mcg 04/04/18 09:00 04/04/18 09:34 Lanoxin PO 125 mcg EVERY OTHER DAY FRACISCO Administration Furosemide 20 mg 04/03/18 09:00 04/03/18 13:34 Lasix PO 20 mg DAILY FRACISCO Administration Sacubitril/Valsartan 1 tab 04/02/18 21:00 04/04/18 09:34 Entresto 49 Mg/51 Mg PO 1 tab BID FRACISCO Administration Objective Remarks: GENERAL: Acutely ill-appearing elderly female patient, in no acute distress. SKIN: Warm and dry. Sutures to left eyebrow, right scalp. Multiple areas of ecchymosis noted to face. HEAD: Normocephalic. EYES: No scleral icterus. No injection or drainage. NECK: Supple, trachea midline. No JVD or lymphadenopathy. Small mass to right esophagus. LYMPHATIC: No adenopathy head, neck or axilla. CARDIOVASCULAR: Regular rate and rhythm without murmurs. RESPIRATORY: Breath sounds equal bilaterally. No accessory muscle use. GASTROINTESTINAL: Abdomen soft, non-tender, nondistended. EXTREMITIES: No cyanosis, or edema. RUE in cast. cap refill<3 sec. MUSCULOSKELETAL: Adequate muscle tone. NEUROLOGICAL: No obvious focal deficit. Awake, alert, and oriented x3. PSYCHIATRIC: Appropriate mood and affect; insight and judgment normal. Assessment/Plan - Plan This is a pleasant 77-year-old lady with an extensive cardiac history who arrived to the hospital as a trauma alert status post syncopal episode with memory loss. Her past medical history includes CVA, coronary artery disease and atrial fibrillation. Oncology was consulted when a CT cervical spine revealed a neck mass and CT chest revealed lung mass. Recommendations: 1. Neck mass, CT cervical spine revealed a mass posterior to the esophagus and right thyroid gland that measured 2.6 x 1.0 cm, concerning for malignancy. Ultrasound-guided biopsy of neck mass ordered with IR. 2. 11 mm nodule in the right lower lobe, concerning for metastatic disease. We will await pathology on neck mass. 3. Discussed with RN, requesting OT consult for hand dexterity. 4. Continue supportive care. - Attending Statement The exam, history, and the medical decision-making described in the above note were completed with the assistance of the mid-level provider. I reviewed and agree with the findings presented. I attest that I had a [id number] encounter with the patient on the same day, and personally performed and documented my assessment and findings in the medical record. s/p biopsy of neck mass, results pending. Will discuss possible biopsy of lung lesion with radiology team.
[2018-04-04] MEDS: Furosemide 20 MG Tablet PO SCH (11:48)
[2018-04-04] MEDS ORDERED: Lidocaine PF 1% Inj 5 ML Vial ONE (11:55)
--- NOTE | 2018-04-04 12:00 | US ---
EXAM DATE: 04/04/2018 11:53 AM EST AGE/SEX: 77 years / Female INDICATIONS: Right side neck nodule. CLINICAL DATA: This is the patient's initial encounter. Patient reports that signs and symptoms have been present for 1 day and indicates a pain score of 0/10. MEDICAL/SURGICAL HISTORY: . Coronary artery disease. Stroke. CABG. COMPARISON: No prior exams available for comparison. ORGAN: Right neck SPECIMEN(S): Three core specimen(s) submitted for pathologic evaluation. DEVICE(S): 18 gauge Temno needle Post procedure scanning reveals no hematoma or other complication. The possibility does exist that the tissue obtained will be non-diagnostic. If the sample is non-diag nostic, a repeat biopsy or surgical biopsy may need to be performed. TECHNIQUE: 1. Ultrasound guidance for needle biopsy. 2. Needle biopsy. 3. 4. . . The risks, benefits and alternatives to the procedure were explained and verbal and written consent w as obtained. The site was prepped in sterile fashion. Full sterile technique was used, including ca p, mask, sterile gloves and gown and a large sterile sheet. Hand hygiene and 2% chlorhexidine and/or betadine/alcohol prep was utilized per protocol for cutaneous antisepsis. The skin and subcutaneous tissues were infiltrated with local anesthetic solution. Sterile gel and sterile probe cover were u tilized for ultrasound guidance. With the patient on the ultrasound table, images were obtained. A needle was advanced into the identified target and the number of specimens as above obtained and correa bmitted for pathologic evaluation. The patient tolerated the procedure well and left the ultrasound suite in stable condition. FINDINGS: The the mass was localized without difficulty. This was separate from the thyroid gland and may refle ct a parathyroid mass. CONCLUSION: 1. Uncomplicated biopsy of right neck mass Electronically signed by: Andrew Iglesias MD 04/04/2018 11:59 AM EST
--- NOTE | 2018-04-04 14:13 | P.PN ---
Subjective Interval history: Nursing denies any acute changes overnight. Patient herself says that she had been evaluated for some intracardiac devices in the past 2 years but ultimately opted out of them. Cardiology who is recommending electrophysiology evaluation. Patient denies having any chest pain. Physical Exam Vital signs: Vital Signs 04/03/18 16:00 04/03/18 20:00 04/03/18 20:39 Temperature 98.1 F 98.2 F Pulse Rate 81 82 84 Respiratory Rate 18 18 Blood Pressure 114/64 126/73 Pulse Oximetry 98 97 04/04/18 00:00 04/04/18 04:00 04/04/18 04:03 Temperature 98.2 F 97.4 F L Pulse Rate 79 93 H 76 Respiratory Rate 18 16 Blood Pressure 104/54 L 110/73 Pulse Oximetry 97 99 04/04/18 08:00 04/04/18 09:55 04/04/18 11:00 Temperature 98 F 99.2 F 99.6 F Pulse Rate 110 H 94 H 84 Respiratory Rate 18 18 18 Blood Pressure 154/83 H 106/66 96/59 L Pulse Oximetry 97 95 93 L 04/04/18 11:15 04/04/18 11:45 04/04/18 12:00 Temperature 99.5 F 97.8 F Pulse Rate 80 88 86 Respiratory Rate 16 18 Blood Pressure 96/58 L 112/68 Pulse Oximetry 92 L 97 Intake & Output 04/03/18 04/04/18 04/04/18 18:59 06:59 18:59 Intake Total 660 / 660 50 / 50 Output Total 1100 / 1100 Balance 660 / 660 -1050 / -1050 Weight 55.7 kg Intake: Oral 660 / 660 50 / 50 Output: Urine 1100 / 1100 Other: # Voids 3 Date of Last Bowel Movement 04/03/18 04/03/18 04/03/18 # Bowel Movements 1 Narrative: Heart sounds regular rate rhythm no murmurs Clear lungs bilaterally, unlabored breathing Sutures intact over right scalp and left supraorbital area No lower extremity edema Results - Labs CBC & Chem 7: 04/03/18 07:01 04/03/18 07:01 - Imaging Impressions Head MRI 04/03/18 00:00 CONCLUSION: 1. Atrophy and white matter disease with no signs of acute infarct. Head MRA 04/03/18 08:30 CONCLUSION: 1. Negative MRA Cow ([place] [facility] [place]) non contrast. Biopsy Ultrasound 04/04/18 00:00 CONCLUSION: 1. Uncomplicated biopsy of right neck mass Assessment and Plan - Plan Elderly female brought in as a level 2 trauma alert after she sustained a traumatic syncope and collapse. Patient sustained a large scalp laceration and left eye blunt trauma. Neurological workup was unremarkable. Large head laceration/left eye ecchymoses and swelling from syncope and collapse : -The patient has been evaluated by the trauma surgeon in the emergency room. She was cleared for admission to the medical service. - Large scalp laceration has been repaired by the ED. Patient reports she had normal vision after the initial injury prior to extensive swelling of the left eye. - Continue dressing per trauma team recommendations. - Pain control - Supportive care. Syncope and collapse: Could be secondary to arrhythmia vs NSTEMI sCHF/paroxysmal A. fib/CAD - Unable to proceed with antiplatelets at this time or anticoagulation given significant trauma - orthostatics and carotid massage would be contraindicated given the patient's age and possible NSTEMI - TSH and MRI of the head unremarkable for any acute insults. - home entresto, Coreg, Lasix. Hold aspirin for now. - Cardiology following, EP evaluation ordered. Newly discovered neck mass and pulmonary nodules: - Oncology following, patient is status post IR biopsy of right neck mass which radiology thinks could be a parathyroid tissue Right distal radius fracture: Nondisplaced. - Splint applied by ED. Will need outpatient follow up. GI prophylaxis: Stool softener PRN constipation. DVT PPx: SCDs. Chemoprophylaxis contraindicated given recent trauma.
[2018-04-04] MEDS ORDERED: LORazepam 0.5 MG Tablet PO ONE (21:44)
--- NOTE | 2018-04-05 07:37 | MB ---
cc: Nancy Sawant MD,Rajeev Villa,Tmia Mendoza MD DATE: 04/04/2018 REASON FOR CONSULTATION: 1. Syncopal episode. 2. Coronary artery disease, congestive heart failure. HISTORY OF PRESENT ILLNESS: Ms. Zurita is a 77-year-old female with history of coronary artery disease, coronary artery bypass grafting. Two years ago, she has a defibrillator vest and she decided to remove it before she was too heavy. She saw a glass deposition tender in [place] a couple of times this year. Ejection fraction was in the low 20s. She decided to come for medical therapy. She was at home a couple of days ago when has a syncopal episode and had trauma. She was brought to the emergency room. She was evaluated by neurologist and glass deposition tender. I was consulted for evaluation and management. The chart was reviewed. The patient was evaluated. I had a long conversation with her and her . ALLERGIES: MULTIPLE. 1. ACETAMINOPHEN. 2. AMLODIPINE. 3. AMOXICILLIN. 4. BENZONATATE CLAVULANIC ACID. 5. CLONIDINE. 6. ENALAPRIL. 7. NADOLOL. 8. BYSTOLIC. 9. OXYCODONE. 10. VERAPAMIL. 11. . 12. Z-AIMEE. MEDICATIONS: Currently, the patient is on: 1. Coreg 2.25 mg a day. 2. Digoxin 125 mcg a day. 3. Lasix 20 mg a day. 4. [place]. 5. Magnesium. 6. Entresto ____. 7. Senokot. REVIEW OF SYSTEMS: She refers headache doing better. No chest pain, no chest discomfort, shortness of breath on activity. PHYSICAL EXAMINATION: GENERAL: Alert, fully oriented, in bed. VITAL SIGNS: Blood pressure 96/59, pulse 84, respiratory rate 18. HEENT: Head with multiple cuts in the temporal area and sutures, some resolving hematoma under the left eye. CARDIOVASCULAR: S1, S2, regular, tachycardic. ABDOMEN: Soft. No mass. EXTREMITIES: No edema. DIAGNOSTIC DATA: Electrocardiogram indicates sinus rhythm, left bundle branch block, QRS around 160 milliseconds, diffuse ST changes. LABORATORY DATA: Hemoglobin 13.6, white blood cells 7.0. INR 1.0. Potassium is 4.0, creatinine 1.03. Troponin 0.92. BNP 414. ASSESSMENT AND RECOMMENDATIONS: Ms. Zurita has coronary artery disease. She has coronary artery bypass grafting. Apparently 2 years ago, she has a defibrillator vest. She decided to remove it because the vest was too heavy. She has multiple hospitalizations due to flash pulmonary edema and shortness of breath. She is on optimal medical treatment. She cannot walk not even a block without stopping. She was seen by a glass deposition tender twice this year in [place], the last time was in September. Ejection fraction was less than 25%. At that time, she refused defibrillator because she felt that the device is too big that is going to create some discomfort for her. She has a syncopal episode. Last echo read by Dr. Deras indicates an ejection fraction of around 20%, maximum 25%. That is the same she was having for the past 2 years apparently. This is an episode of sudden until proven otherwise. Ms. Zurita will need a biventricular pacer defibrillator for sudden prevention. In the best case scenario, she will need a biventricular pacer for resynchronization therapy because of his multiple episodes of flash pulmonary edema due to heart failure and a wide QRS. I had a long conversation with her and the family that was at bedside. She does not know what she wants to do because she worried about the size and the discomfort that device can cause. I explained to her that the of the device, there should be no discomfort except in the first month maybe of . At this point, my recommendation is continue current medical treatment. Ms. Zurita is aware in the last 2 years that she needed a defibrillator for sudden prevention. I will see her on a p.r.n. basis. I will see if the patient has requested. MD FRANK Muñiz/darwin/benny , 06:36 PM , 06:51 PM
[2018-04-05] MEDS: Furosemide 20 MG Tablet PO SCH (09:11)
--- NOTE | 2018-04-05 10:41 | P.PNONC ---
Subjective Interval history: Patient sitting in chair, just finished working with physical therapy. She has no complaints at this time. She denies any pain at the biopsy site. Her daughter is at the bedside, pathology of neck mass is pending. Dr. Marin discussed with radiologist and they will not proceed with lung biopsy at this time, however we will repeat imaging as an outpatient. Objective Vital Signs/Intake & Output: Vital Signs 04/04/18 11:00 04/04/18 11:15 04/04/18 11:45 Temperature 99.6 F 99.5 F 97.8 F Pulse Rate 84 80 88 Respiratory Rate 18 16 18 Blood Pressure 96/59 L 96/58 L 112/68 Pulse Oximetry 93 L 92 L 97 04/04/18 12:00 04/04/18 17:00 04/04/18 19:41 Temperature 97.8 F 98.7 F Pulse Rate 86 96 H 89 Respiratory Rate 18 12 Blood Pressure 119/83 100/59 L Pulse Oximetry 97 97 04/05/18 00:00 04/05/18 00:05 04/05/18 04:00 Temperature 98.2 F 98.4 F Pulse Rate 85 82 70 Respiratory Rate 14 16 Blood Pressure 94/53 L 108/64 Pulse Oximetry 97 04/05/18 08:00 04/05/18 10:28 Temperature Pulse Rate 80 Respiratory Rate Blood Pressure Pulse Oximetry 97 Intake & Output 04/04/18 04/05/18 04/05/18 18:59 06:59 18:59 Intake Total 720 / 720 240 / 240 Output Total 600 / 600 600 / 600 Balance 120 / 120 -360 / -360 Weight 55.5 kg Intake: Oral 720 / 720 240 / 240 Output: Urine 600 / 600 600 / 600 Other: Date of Last Bowel Movement 04/03/18 04/03/18 Result Diagrams: 04/03/18 07:01 04/03/18 07:01 Imaging Studies: Impressions Biopsy Ultrasound 04/04/18 00:00 CONCLUSION: 1. Uncomplicated biopsy of right neck mass Medications: Active Medications Generic Name Dose Route Start Last Admin Trade Name Freq PRN Reason Stop Dose Admin Carvedilol 3.125 mg 04/02/18 21:00 04/05/18 09:10 Coreg PO 3.125 mg BID FRACISCO Administration Digoxin 125 mcg 04/04/18 09:00 11/07/18 09:34 Lanoxin PO 125 mcg EVERY OTHER DAY FRACISCO Administration Furosemide 20 mg 04/03/18 09:00 04/05/18 09:11 Lasix PO 20 mg DAILY FRACISCO Administration Sacubitril/Valsartan 1 tab 04/02/18 21:00 04/05/18 09:10 Entresto 49 Mg/51 Mg PO 1 tab BID FRACISCO Administration Objective Remarks: GENERAL: Acutely ill-appearing elderly female patient, in no acute distress. SKIN: Warm and dry. Sutures to left eyebrow, right scalp/forehead. Multiple areas of ecchymosis noted to face. HEAD: Normocephalic. EYES: No scleral icterus. No injection or drainage. NECK: Supple, trachea midline. No JVD or lymphadenopathy. Band-Aid to right neck, dry and intact. CARDIOVASCULAR: Regular rate and rhythm without murmurs. RESPIRATORY: Breath sounds equal bilaterally. No accessory muscle use. GASTROINTESTINAL: Abdomen soft, non-tender, nondistended. EXTREMITIES: No cyanosis, or edema. RUE in cast. cap refill<3 sec. MUSCULOSKELETAL: Adequate muscle tone. NEUROLOGICAL: No obvious focal deficit. Awake, alert, and oriented x3. PSYCHIATRIC: Appropriate mood and affect; insight and judgment normal. Assessment/Plan - Plan This is a pleasant 77-year-old lady with an extensive cardiac history who arrived to the hospital as a trauma alert status post syncopal episode with memory loss. Her past medical history includes CVA, coronary artery disease and atrial fibrillation. Oncology was consulted when a CT cervical spine revealed a neck mass and CT chest revealed lung mass. Recommendations: 1. Neck mass, CT cervical spine revealed a mass posterior to the esophagus and right thyroid gland that measured 2.6 x 1.0 cm, concerning for malignancy. Ultrasound-guided biopsy of neck mass yesterday, pathology pending. 2. 11 mm nodule in the right lower lobe, concerning for metastatic disease. Dr. Marin spoke with radiologist today in regards to CT chest, no biopsy is warranted at this time and we will follow-up with outpatient imaging. 3. Syncopal episode, EF 20-25%, cardiology recommending ICD. 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 She reports that she is worried about it being uncomfortable. She has a history of wearing a LifeVest approximately 2 years ago. 4. Continue supportive care. - Attending Statement The exam, history, and the medical decision-making described in the above note were completed with the assistance of the mid-level provider. I reviewed and agree with the findings presented. I attest that I had a [id number] encounter with the patient on the same day, and personally performed and documented my assessment and findings in the medical record. Neck mass biopsied, pathology returned as ectopic thyroid tissue. Reviewed Ct imaging with radiologist. Will have close interval follow up CT scan in 3 months in the outpatient setting.
--- NOTE | 2018-04-05 13:25 | P.PNCA ---
Subjective Interval history: alert in nad Medications and Allergies Active Medications: Active Medications Hydrocodone Bitart/Acetaminophen ([place] 5/325) 1 tab PO Q6H PRN PRN Reason: PAIN SCALE 6 TO 10 Al Hydroxide/Mg Hydroxide (Milk Of Magnesia Liq) 30 ml PO Q12H PRN PRN Reason: Mild Constipation Bisacodyl (Dulcolax Supp) 10 mg RECTAL DAILY PRN PRN Reason: SEVERE CONSITIPATION Carvedilol (Coreg) 3.125 mg PO BID [facility] Last Admin: 04/05/18 09:10 Dose: 3.125 mg Digoxin (Lanoxin) 125 mcg PO EVERY OTHER DAY [facility] Last Admin: 04/04/18 09:34 Dose: 125 mcg Furosemide (Lasix) 20 mg PO DAILY [facility] Last Admin: 04/05/18 09:11 Dose: 20 mg Lactulose (Lactulose Liq) 30 ml PO DAILY PRN PRN Reason: SEVERE CONSITIPATION Sacubitril/Valsartan (Entresto 49 Mg/51 Mg) 1 tab PO BID [facility] Last Admin: 04/05/18 09:10 Dose: 1 tab Sennosides (Senokot) 17.2 mg PO Q12H PRN PRN Reason: Moderate Constipation Allergies Allergy/AdvReac Type Severity Reaction Status Date / Time acetaminophen [From Percocet] Allergy UNKNOWN Verified 04/02/18 14:07 amlodipine [From Norvasc] Allergy UNKNOWN Verified 04/02/18 14:07 amoxicillin [From Augmentin] Allergy UNKNOWN Verified 04/02/18 14:07 benzonatate Allergy UNKNOWN Verified 04/02/18 14:07 [From Tessalon Perles] clavulanic acid Allergy UNKNOWN Verified 04/02/18 14:07 [From Augmentin] clonidine Allergy UNKNWN Verified 04/02/18 14:07 enalaprilat [From Vasotec] Allergy UNKNOWN Verified 04/02/18 14:07 nadolol Allergy UNKNOWN Verified 04/02/18 14:07 nebivolol [From Bystolic] Allergy UNKNOWN Verified 04/02/18 14:07 oxycodone [From Percocet] Allergy UNKNOWN Verified 04/02/18 14:07 verapamil [From Covera-HS] Allergy UNKNOWN Verified 04/02/18 14:07 FENESIN Allergy UNKNOWN Uncoded 04/02/18 14:07 ZPAK Allergy UNKNOWN Uncoded 04/02/18 14:07 Home Medications Medication Instructions Recorded Confirmed Type Ocuvite 04/02/18 History aspirin 81 mg PO DAILY 04/02/18 04/02/18 History carvedilol 3.125 mg PO BID 04/02/18 04/02/18 History digoxin 0.125 mg PO EVERY OTHER DAY 04/02/18 04/02/18 History furosemide 20 mg PO DAILY 04/02/18 04/02/18 History magnesium 04/02/18 History potassium chloride 10 meq PO BID 04/02/18 04/02/18 History sacubitril-valsartan [Entresto] 1 tab PO BID 04/02/18 04/02/18 History Physical Exam Vital signs: Vital Signs 04/04/18 17:00 04/04/18 19:41 04/05/18 00:00 Temperature 97.8 F 98.7 F 98.2 F Pulse Rate 96 H 89 85 Respiratory Rate 18 12 14 Blood Pressure 119/83 100/59 L 94/53 L Pulse Oximetry 97 97 04/05/18 00:05 04/05/18 04:00 04/05/18 08:00 Temperature 98.4 F Pulse Rate 82 70 80 Respiratory Rate 16 Blood Pressure 108/64 Pulse Oximetry 97 04/05/18 09:01 04/05/18 10:28 Temperature 98.9 F Pulse Rate 107 H Respiratory Rate 16 Blood Pressure 105/65 Pulse Oximetry 94 L 97 Intake & Output 04/04/18 04/05/18 04/05/18 18:59 06:59 18:59 Intake Total 720 / 720 240 / 240 Output Total 600 / 600 600 / 600 Balance 120 / 120 -360 / -360 Weight 55.5 kg Intake: Oral 720 / 720 240 / 240 Output: Urine 600 / 600 600 / 600 Other: Date of Last Bowel Movement 04/03/18 04/03/18 04/04/18 - Constitutional no acute distress - Routine HEENT Exam Head: Present: normocephalic - Routine Neck Exam Present: supple - Routine Respiratory Exam Present: CTA bilaterally - Routine Abdominal Exam Present: soft - Routine Extremities Exam Comments: no carson Results 04/03/18 07:01 04/03/18 07:01 Intake and Output 04/04/18 04/05/18 04/05/18 22:59 06:59 14:59 Intake Total 720 / 720 240 / 240 Output Total 600 / 600 600 / 600 Balance 120 / 120 -360 / -360 Intake: Oral 720 / 720 240 / 240 Output: Urine 600 / 600 600 / 600 Other: Date of Last Bowel Movement 04/03/18 04/04/18 Weight 55.5 kg - Imaging and Cardiology Imaging: Impressions Head MRI 04/03/18 00:00 CONCLUSION: 1. Atrophy and white matter disease with no signs of acute infarct. Head MRA 04/03/18 08:30 CONCLUSION: 1. Negative MRA Cow ([place]) non contrast. Biopsy Ultrasound 04/04/18 00:00 CONCLUSION: 1. Uncomplicated biopsy of right neck mass Assessment and Plan - Assessment (1) Syncope Code(s): R55 - Syncope and collapse Status: Acute (2) Elevated troponin Code(s): R74.8 - Abnormal levels of other serum enzymes Status: Acute (3) Head injury Code(s): S09.90XA - Unspecified injury of head, initial encounter Status: Acute (4) Laceration of scalp Code(s): S01.01XA - Laceration without foreign body of scalp, initial encounter Status: Acute (5) Mass in neck Code(s): R22.1 - Localized swelling, mass and lump, neck Status: Acute (6) Pulmonary nodule Code(s): R91.1 - Solitary pulmonary nodule Status: Acute (7) Closed fracture dislocation of right wrist joint Code(s): S62.101A - Fracture of unspecified carpal bone, right wrist, initial encounter for closed fracture Status: Acute - Plan 1.) Syncope/nstemi - cardiomyopathy with bio mvr, f/u neuro eval, lung mass eval ; EP has evaluated, patient declines icd/biv, will treat medically until head trauma improves; then will consider mps vs cath (1) Syncope Qualifiers: Syncope type: unspecified Qualified Code(s): R55 - Syncope and collapse (3) Head injury Qualifiers: Encounter type: initial encounter Qualified Code(s): S09.90XA - Unspecified injury of head, initial encounter (4) Laceration of scalp Qualifiers: Encounter type: initial encounter Qualified Code(s): S01.01XA - Laceration without foreign body of scalp, initial encounter (7) Closed fracture dislocation of right wrist joint Qualifiers: Encounter type: initial encounter Qualified Code(s): S62.101A - Fracture of unspecified carpal bone, right wrist, initial encounter for closed fracture
--- NOTE | 2018-04-05 14:41 | P.PN ---
Subjective Interval history: Nursing denies any acute deteriorations overnight. Patient herself affirms that she has opted out of a pacemaker placement after discussing with electrophysiology. She has not decided yet definitively upon whether or not she would want to pursue a cardiac workup that would possibly entail her being on a blood thinner afterwards. Physical Exam Vital signs: Vital Signs 04/04/18 17:00 04/04/18 19:41 04/05/18 00:00 Temperature 97.8 F 98.7 F 98.2 F Pulse Rate 96 H 89 85 Respiratory Rate 18 12 14 Blood Pressure 119/83 100/59 L 94/53 L Pulse Oximetry 97 97 04/05/18 00:05 04/05/18 04:00 04/05/18 08:00 Temperature 98.4 F Pulse Rate 82 70 80 Respiratory Rate 16 Blood Pressure 108/64 Pulse Oximetry 97 04/05/18 09:01 04/05/18 10:28 04/05/18 12:00 Temperature 98.9 F Pulse Rate 107 H 84 Respiratory Rate 16 Blood Pressure 105/65 Pulse Oximetry 94 L 97 04/05/18 12:45 Temperature 99.3 F Pulse Rate 85 Respiratory Rate 16 Blood Pressure 121/80 Pulse Oximetry 99 Intake & Output 04/04/18 04/05/18 04/05/18 18:59 06:59 18:59 Intake Total 720 / 720 240 / 240 Output Total 600 / 600 600 / 600 Balance 120 / 120 -360 / -360 Weight 55.5 kg Intake: Oral 720 / 720 240 / 240 Output: Urine 600 / 600 600 / 600 Other: Date of Last Bowel Movement 04/03/18 04/03/18 04/04/18 Narrative: Heart sounds regular rate and rhythm, no murmurs Clear lungs bilaterally, unlabored breathing Sutures in place over right scalp and left supraorbital area, appears dry clean and intact Extraocular motions intact Results - Labs CBC & Chem 7: 04/03/18 07:01 04/03/18 07:01 Assessment and Plan - Plan Elderly female brought in as a level 2 trauma alert after she sustained a traumatic syncope and collapse. Patient sustained a large scalp laceration and left eye blunt trauma. Neurological workup was unremarkable. Large head laceration/left eye ecchymoses and swelling from syncope and collapse : -The patient has been evaluated by the trauma surgeon in the emergency room. She was cleared for admission to the medical service. - Large scalp laceration has been repaired by the ED. Patient reports she had normal vision after the initial injury prior to extensive swelling of the left eye. - Continue dressing per trauma team recommendations. - Pain control - Supportive care. Syncope and collapse: Could be secondary to arrhythmia vs NSTEMI systolic chronic CHF/paroxysmal A. fib/CAD - Unable to proceed with antiplatelets at this time or anticoagulation given significant trauma - orthostatics and carotid massage would be contraindicated given the patient's age and possible NSTEMI - TSH and MRI of the head unremarkable for any acute insults. - home entresto, Coreg, Lasix. Hold aspirin for now. - Cardiology following, is considering an ischemic workup once cleared with dermatology. Electrophysiology has evaluated the patient, patient has opted out of pacemaker placement. Patient was extensively counseled on the risks and benefits of sudden cardiac especially given her cardiomyopathy. Newly discovered neck mass and pulmonary nodules: - Oncology following, patient is status post IR biopsy of right neck mass which radiology thinks could be a parathyroid tissue - defer lung biopsy at this time per oncology Right distal radius fracture: Nondisplaced. - Splint applied by ED. Will need outpatient follow up. GI prophylaxis: Stool softener PRN constipation. DVT PPx: SCDs. Chemoprophylaxis contraindicated given recent trauma. Discharge Planning: Patient to make a decision regarding ischemic workup, entertaining the notion of the possibility of being on a blood thinner.
--- NOTE | 2018-04-05 18:07 | P.PNNEU ---
Subjective Subjective Comments: No cp, no dyspnea, no roa, no focal weakness, no vision loss Active Medications: Active Medications Hydrocodone Bitart/Acetaminophen ([place] 5/325) 1 tab PO Q6H PRN PRN Reason: PAIN SCALE 6 TO 10 Al Hydroxide/Mg Hydroxide (Milk Of Magnesia Liq) 30 ml PO Q12H PRN PRN Reason: Mild Constipation Bisacodyl (Dulcolax Supp) 10 mg RECTAL DAILY PRN PRN Reason: SEVERE CONSITIPATION Carvedilol (Coreg) 3.125 mg PO BID [facility] Last Admin: 04/05/18 09:10 Dose: 3.125 mg Digoxin (Lanoxin) 125 mcg PO EVERY OTHER DAY [facility] Last Admin: 04/04/18 09:34 Dose: 125 mcg Furosemide (Lasix) 20 mg PO DAILY [facility] Last Admin: 04/05/18 09:11 Dose: 20 mg Lactulose (Lactulose Liq) 30 ml PO DAILY PRN PRN Reason: SEVERE CONSITIPATION Sacubitril/Valsartan (Entresto 49 Mg/51 Mg) 1 tab PO BID [facility] Last Admin: 04/05/18 09:10 Dose: 1 tab Sennosides (Senokot) 17.2 mg PO Q12H PRN PRN Reason: Moderate Constipation Allergies/Adverse Reactions: Allergies Allergy/AdvReac Type Severity Reaction Status Date / Time acetaminophen [From Percocet] Allergy UNKNOWN Verified 04/02/18 14:07 amlodipine [From Norvasc] Allergy UNKNOWN Verified 04/02/18 14:07 amoxicillin [From Augmentin] Allergy UNKNOWN Verified 04/02/18 14:07 benzonatate Allergy UNKNOWN Verified 04/02/18 14:07 [From Tessalon Perles] clavulanic acid Allergy UNKNOWN Verified 04/02/18 14:07 [From Augmentin] clonidine Allergy UNKNWN Verified 04/02/18 14:07 enalaprilat [From Vasotec] Allergy UNKNOWN Verified 04/02/18 14:07 nadolol Allergy UNKNOWN Verified 04/02/18 14:07 nebivolol [From Bystolic] Allergy UNKNOWN Verified 04/02/18 14:07 oxycodone [From Percocet] Allergy UNKNOWN Verified 04/02/18 14:07 verapamil [From Covera-HS] Allergy UNKNOWN Verified 04/02/18 14:07 FENESIN Allergy UNKNOWN Uncoded 04/02/18 14:07 ZPAK Allergy UNKNOWN Uncoded 04/02/18 14:07 Review of Systems All other systems reviewed negative except as stated in HPI Physical Exam Vital signs: Vital Signs 04/04/18 19:41 04/05/18 00:00 04/05/18 00:05 Temperature 98.7 F 98.2 F Pulse Rate 89 85 82 Respiratory Rate 12 14 Blood Pressure 100/59 L 94/53 L Pulse Oximetry 97 04/05/18 04:00 04/05/18 08:00 04/05/18 09:01 Temperature 98.4 F 98.9 F Pulse Rate 70 80 107 H Respiratory Rate 16 16 Blood Pressure 108/64 105/65 Pulse Oximetry 97 94 L 04/05/18 10:28 04/05/18 12:00 04/05/18 12:45 Temperature 99.3 F Pulse Rate 84 85 Respiratory Rate 16 Blood Pressure 121/80 Pulse Oximetry 97 99 04/05/18 16:00 Temperature Pulse Rate 82 Respiratory Rate Blood Pressure Pulse Oximetry Intake & Output 04/04/18 04/05/18 04/05/18 18:59 06:59 18:59 Intake Total 720 / 720 240 / 240 Output Total 600 / 600 600 / 600 Balance 120 / 120 -360 / -360 Weight 55.5 kg Intake: Oral 720 / 720 240 / 240 Output: Urine 600 / 600 600 / 600 Other: Date of Last Bowel Movement 04/03/18 04/03/18 04/04/18 Narrative: GENERAL: in NAD, SKIN: Warm and dry. HEAD: Right scalp laceration sutured ENT: No nasal bleeding or discharge. Mucous membranes pink and moist. NECK: Trachea midline. No JVD. CARDIOVASCULAR: Regular rate and rhythm. RESPIRATORY: No accessory muscle use. GASTROINTESTINAL: Abdomen soft, non-tender, nondistended. MUSCULOSKELETAL: Extremities without clubbing, cyanosis, or edema. No obvious deformities. NEUROLOGICAL: Awake alert oriented x3 pleasant, no aphasia, visual bryan grossly full mild left periorbital edema secondary to trauma, right forehead thomas, right arm in a brace, left upper extremity spastic paresis strength 3 out of 5, able raise both lower extremity gravity left lower semi-5- out of 5 right lower extremity 5 out of 5, gait not assessed secondary to fall risk PSYCHIATRIC: Appropriate mood and affect; insight and judgment normal. - Constitutional no acute distress - Routine HEENT Exam Head: Present: normocephalic Eye: Present: EOMI Review/Management - Diagnosis (1) Syncope Code(s): R55 - Syncope and collapse Status: Acute Current Visit: Yes (2) Chronic arterial ischemic stroke Code(s): I69.30 - Unspecified sequelae of cerebral infarction Status: Acute Current Visit: Yes (3) Hx of CABG Code(s): Z95.1 - Presence of aortocoronary bypass graft Status: Acute Current Visit: Yes (4) H/O mitral valve repair Code(s): Z98.890 - Other specified postprocedural states Status: Acute Current Visit: Yes (5) Non-STEMI (non-ST elevated myocardial infarction) Code(s): I21.4 - Non-ST elevation (NSTEMI) myocardial infarction Status: Acute Current Visit: Yes - Review/Management Plan: Syncopal episode. Suspect Cardiologic in origin; depressed ejection fraction History of previous stroke with left hemiparesis MRI MRA brain reviewed. No acute lesion no significant vaso-occlusive disease EEG negative for seizure activity Depressed ejection fraction with global hypokinesis Recommendation Neuro stable Plans for possible cath tomorrow morning by cardiology Discussed with patient, spouse and daughter No driving (1) Syncope Qualifiers: Syncope type: unspecified Qualified Code(s): R55 - Syncope and collapse
[2018-04-05] MEDS ORDERED: LORazepam 0.5 MG Tablet PO ONE (22:55)
[2018-04-06 01:20] LABS: Hematocrit 30.2 % (35.0-46.0); Hemoglobin 10.4 gm/dL (11.6-15.3); Mean Corpuscular HGB Conc 34.4 % (32.0-36.0); Mean Corpuscular Hemoglobin 33.3 pg (27.0-34.0); Mean Corpuscular Volume 96.7 fL (80.0-100.0); Mean Platelet Volume 9.2 fL (7.0-11.0); Platelet Count 148 th/mm3 (150-450); Red Blood Count 3.13 mil/mm3 (4.00-5.30); Red Cell Distribution Width 13.3 % (11.6-17.2); White Blood Count 4.4 th/mm3 (4.0-11.0)
[2018-04-06 01:50] LABS: Calcium 8.3 mg/dL (8.5-10.1); Carbon Dioxide 26.1 meq/L (21.0-32.0); Magnesium 2.2 mg/dL (1.5-2.5); Potassium 3.8 meq/L (3.5-5.1)
[2018-04-06 02:03] LABS: Troponin I 1.31 ng/mL (0.02-0.05)
--- NOTE | 2018-04-06 08:01 | P.PNNEU ---
Subjective Subjective Comments: no acute events, no cp/dypspnea/syncope/vision loss or focal weakness Active Medications: Active Medications Hydrocodone Bitart/Acetaminophen (Noble 5/325) 1 tab PO Q6H PRN PRN Reason: PAIN SCALE 6 TO 10 Al Hydroxide/Mg Hydroxide (Milk Of Magnesia Liq) 30 ml PO Q12H PRN PRN Reason: Mild Constipation Bisacodyl (Dulcolax Supp) 10 mg RECTAL DAILY PRN PRN Reason: SEVERE CONSITIPATION Carvedilol (Coreg) 3.125 mg PO BID [facility] Last Admin: 04/05/18 21:54 Dose: 3.125 mg Digoxin (Lanoxin) 125 mcg PO EVERY OTHER DAY [facility] Last Admin: 04/04/18 09:34 Dose: 125 mcg Furosemide (Lasix) 20 mg PO DAILY [facility] Last Admin: 04/05/18 09:11 Dose: 20 mg Lactulose (Lactulose Liq) 30 ml PO DAILY PRN PRN Reason: SEVERE CONSITIPATION Sacubitril/Valsartan (Entresto 49 Mg/51 Mg) 1 tab PO BID [facility] Last Admin: 04/05/18 21:54 Dose: 1 tab Sennosides (Senokot) 17.2 mg PO Q12H PRN PRN Reason: Moderate Constipation Allergies/Adverse Reactions: Allergies Allergy/AdvReac Type Severity Reaction Status Date / Time acetaminophen [From Percocet] Allergy UNKNOWN Verified 04/02/18 14:07 amlodipine [From Norvasc] Allergy UNKNOWN Verified 04/02/18 14:07 amoxicillin [From Augmentin] Allergy UNKNOWN Verified 04/02/18 14:07 benzonatate Allergy UNKNOWN Verified 04/02/18 14:07 [From Tessalon Perles] clavulanic acid Allergy UNKNOWN Verified 04/02/18 14:07 [From Augmentin] clonidine Allergy UNKNWN Verified 04/02/18 14:07 enalaprilat [From Vasotec] Allergy UNKNOWN Verified 04/02/18 14:07 nadolol Allergy UNKNOWN Verified 04/02/18 14:07 nebivolol [From Bystolic] Allergy UNKNOWN Verified 04/02/18 14:07 oxycodone [From Percocet] Allergy UNKNOWN Verified 04/02/18 14:07 verapamil [From Covera-HS] Allergy UNKNOWN Verified 04/02/18 14:07 FENESIN Allergy UNKNOWN Uncoded 04/02/18 14:07 ZPAK Allergy UNKNOWN Uncoded 04/02/18 14:07 Review of Systems All other systems reviewed negative except as stated in HPI Physical Exam Vital signs: Vital Signs 04/05/18 08:00 04/05/18 09:01 04/05/18 10:28 Temperature 98.9 F Pulse Rate 80 107 H Respiratory Rate 16 Blood Pressure 105/65 Pulse Oximetry 94 L 97 04/05/18 12:00 04/05/18 12:45 04/05/18 16:00 Temperature 99.3 F Pulse Rate 84 85 82 Respiratory Rate 16 Blood Pressure 121/80 Pulse Oximetry 99 04/05/18 19:09 04/05/18 19:21 04/05/18 20:00 Temperature 97.6 F Pulse Rate 81 88 Respiratory Rate 12 Blood Pressure 130/83 Pulse Oximetry 93 L 98 04/05/18 23:31 04/06/18 00:00 04/06/18 03:09 Temperature 98.0 F Pulse Rate 76 86 Respiratory Rate 16 Blood Pressure 86/51 L 108/65 Pulse Oximetry 98 04/06/18 03:32 04/06/18 04:00 Temperature 97.4 F L Pulse Rate 71 82 Respiratory Rate 16 Blood Pressure 115/71 Pulse Oximetry 98 Intake & Output 04/05/18 04/06/18 04/06/18 18:59 06:59 18:59 Intake Total 480 / 480 Output Total 500 / 500 Balance 480 / 480 -500 / -500 Weight 55.7 kg Intake: Oral 480 / 480 Output: Urine 500 / 500 Other: Date of Last Bowel Movement 04/04/18 Narrative: GENERAL: in NAD, SKIN: Warm and dry. HEAD: Right scalp laceration sutured ENT: No nasal bleeding or discharge. Mucous membranes pink and moist. NECK: Trachea midline. No JVD. CARDIOVASCULAR: Regular rate and rhythm. RESPIRATORY: No accessory muscle use. GASTROINTESTINAL: Abdomen soft, non-tender, nondistended. MUSCULOSKELETAL: Extremities without clubbing, cyanosis, or edema. No obvious deformities. NEUROLOGICAL: Awake alert oriented x3 pleasant, no aphasia, visual bryan grossly full mild left periorbital edema secondary to trauma, right forehead thomas, right arm in a brace, left upper extremity spastic paresis strength 3 out of 5, able raise both lower extremity gravity left lower semi-5- out of 5 right lower extremity 5 out of 5, gait not assessed secondary to fall risk PSYCHIATRIC: Appropriate mood and affect; insight and judgment normal. - Constitutional no acute distress - Routine HEENT Exam Head: Present: normocephalic Objective Laboratory Results - last 24 hr 04/06/18 04/06/18 04/06/18 00:50 00:50 00:50 WBC 4.4 RBC 3.13 L Hgb 10.4 L Hct 30.2 L MCV 96.7 MCH 33.3 MCHC 34.4 RDW 13.3 Plt Count 148 L MPV 9.2 Sodium 138 Potassium 3.8 Chloride 102 Carbon Dioxide 26.1 Anion Gap 10 BUN 26 H Creatinine 1.00 Estimated GFR 54 L Random Glucose 94 Calcium 8.3 L Magnesium 2.2 Troponin I 1.31 H* D B-Natriuretic Peptide 162 H Review/Management - Diagnosis (1) Syncope Code(s): R55 - Syncope and collapse Status: Acute Current Visit: Yes (2) Chronic arterial ischemic stroke Code(s): I69.30 - Unspecified sequelae of cerebral infarction Status: Acute Current Visit: Yes (3) Hx of CABG Code(s): Z95.1 - Presence of aortocoronary bypass graft Status: Acute Current Visit: Yes (4) H/O mitral valve repair Code(s): Z98.890 - Other specified postprocedural states Status: Acute Current Visit: Yes (5) Non-STEMI (non-ST elevated myocardial infarction) Code(s): I21.4 - Non-ST elevation (NSTEMI) myocardial infarction Status: Acute Current Visit: Yes - Review/Management Plan: Syncopal episode. Suspect Cardiologic in origin; depressed ejection fraction History of previous stroke with left hemiparesis MRI MRA brain reviewed. No acute lesion no significant vaso-occlusive disease EEG negative for seizure activity Depressed ejection fraction with global hypokinesis declines icd/vest; d/w pt this am Recommendation Neuro stable Plans for possible cath today d/c planning after procedure No driving (1) Syncope Qualifiers: Syncope type: unspecified Qualified Code(s): R55 - Syncope and collapse
[2018-04-06] MEDS: Digoxin 125 MCG Tablet PO SCH (08:59)
[2018-04-06] MEDS: Furosemide 20 MG Tablet PO SCH (09:00)
[2018-04-06] MEDS ORDERED: Lidocaine PF 1% Inj 30 ML Vial ONE (10:49)
[2018-04-06] MEDS ORDERED: Heparin/NS PF Inj 1,000 ML ONE (10:49)
[2018-04-06] MEDS ORDERED: fentaNYL Citrate Inj 100 MCG/2 ML Ampul ONE (10:50)
[2018-04-06] MEDS ORDERED: Heparin 10,000 UNITS/10 ML Vial (for IV use) ONE (10:50)
--- NOTE | 2018-04-06 11:19 | P.PN ---
Subjective Interval history: Nursing denies any acute changes overnight. Patient herself says she has decided to proceed with the cardiac workup. I have spoken with trauma, initial images reviewed with no findings suggestive of intracranial hemorrhage, also spoken with oncology in regards to possible future workup of metastatic lung disease, they are both okay with the patient to be placed on antiplatelets. Patient reports that the vision in her left eye is intact, denies any bleeding from the left eye. Physical Exam Vital signs: Vital Signs 04/05/18 12:00 04/05/18 12:45 04/05/18 16:00 Temperature 99.3 F Pulse Rate 84 85 82 Respiratory Rate 16 Blood Pressure 121/80 Pulse Oximetry 99 04/05/18 19:09 04/05/18 19:21 04/05/18 20:00 Temperature 97.6 F Pulse Rate 81 88 Respiratory Rate 12 Blood Pressure 130/83 Pulse Oximetry 93 L 98 04/05/18 23:31 04/06/18 00:00 04/06/18 03:09 Temperature 98.0 F Pulse Rate 76 86 Respiratory Rate 16 Blood Pressure 86/51 L 108/65 Pulse Oximetry 98 04/06/18 03:32 04/06/18 04:00 Temperature 97.4 F L Pulse Rate 71 82 Respiratory Rate 16 Blood Pressure 115/71 Pulse Oximetry 98 Intake & Output 04/05/18 04/06/18 04/06/18 18:59 06:59 18:59 Intake Total 480 / 480 Output Total 500 / 500 Balance 480 / 480 -500 / -500 Weight 55.7 kg Intake: Oral 480 / 480 Output: Urine 500 / 500 Other: Date of Last Bowel Movement 04/04/18 Narrative: Heart sounds regular rate rhythm, no murmurs Clear lungs bilaterally, unlabored breathing Unchanged left conjunctival hemorrhage Results - Labs CBC & Chem 7: 04/07/18 03:31 04/07/18 03:31 Laboratory Results - last 24 hr 04/06/18 04/06/18 04/06/18 00:50 00:50 00:50 WBC 4.4 RBC 3.13 L Hgb 10.4 L Hct 30.2 L MCV 96.7 MCH 33.3 MCHC 34.4 RDW 13.3 Plt Count 148 L MPV 9.2 Sodium 138 Potassium 3.8 Chloride 102 Carbon Dioxide 26.1 Anion Gap 10 BUN 26 H Creatinine 1.00 Estimated GFR 54 L Random Glucose 94 Calcium 8.3 L Magnesium 2.2 Troponin I 1.31 H* D B-Natriuretic Peptide 162 H Assessment and Plan - Plan Elderly female brought in as a level 2 trauma alert after she sustained a traumatic syncope and collapse. Patient sustained a large scalp laceration and left eye blunt trauma. Neurological workup was unremarkable. Neurology following, neuro imaging unremarkable. EEG unremarkable. Patient opting out of pacemaker placement despite extensive risks and benefits counseling by primary team and electrophysiology and cardiology regarding sudden . Large head laceration/left eye ecchymoses and swelling from syncope and collapse : -Supportive care -Sutures to be taken out in the near future Syncope and collapse: Could be secondary to arrhythmia vs NSTEMI systolic chronic CHF/paroxysmal A. fib/CAD - Unable to proceed with antiplatelets at this time or anticoagulation given significant trauma - orthostatics and carotid massage would be contraindicated given the patient's age and possible NSTEMI -home entresto, Coreg, Lasix. -Cardiology considering ischemic workup, catheterization today Electrophysiology has evaluated the patient, patient has opted out of pacemaker placement. Patient was extensively counseled on the risks and benefits of sudden cardiac especially given her cardiomyopathy. 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 - Splint applied by ED. Will need outpatient follow up. GI prophylaxis: Stool softener PRN constipation. DVT PPx: SCDs. Chemoprophylaxis contraindicated given recent trauma. Discharge Planning: pending SNF placement once cleared w/ cardiology
[2018-04-06] MEDS ORDERED: Adenosine Stress Test 90 MG/30 ML Vial IV.SIG ONE (11:31)
[2018-04-06] MEDS ORDERED: Tirofiban Inj 12,500 MCG/250 ML PLAST..BAG ONE (12:33)
[2018-04-06] MEDS ORDERED: Misc Info for Pharmacy OTHER STA (12:54)
[2018-04-06] MEDS ORDERED: Tirofiban Inj 12,500 MCG/250 ML PLAST..BAG IV.CONT SCH ×2 (13:00→14:00)
--- NOTE | 2018-04-06 13:12 | CATHPROC ---
[employer] HIS Report Study Information Study Number Admission Scheduled Start Study Start [id number] Apr 02 2018 5:32PM 04/06/2018 Apr 06 2018 10:38AM [facility] Cardiac Catheterization Admit Source Facility Department Other [facility] - Network Admin Physician and Clinical Staff Initial Rajeev Kemp GristmillerDestiny Kathleen RN GristmillerShila Warner,DEX Recorder Pau Sanchez,RT(R) Scrub Troy Youngblood RCIS(BS) Procedures Performed Procedure Location (Site) Vessel Name Coronary Angiograms LCA Left Coronary Coronary Angiograms RCA Right Coronary Coronary Angiograms HILL-LAD Left Coronary Coronary Angiograms SVG-DIAG Left Coronary Coronary Angiograms SVG-RCA Right Coronary Coronary Angiograms Gft. Stump 1 SVG Graft L Heart Cath PTCA HILL-LAD Left Coronary Stent HILL-LAD Left Coronary Stent LAD Dist Left Coronary Wire insertion Fem Art (right) Femoral Art Equipment Time Education Program Specialist Description Size Mfg Part Number Used/Scraped TRANSDUCER, TRUWAVE [id number] 10:58 HANEY GARCIA * Used W/STOCKCOCK *[id number] 12:09 [employer]ON [employer] WIRE, CHOICE PT 182CM 182CM Used *[id number] 12:14 [employer] WIRE, CHOICE PT 182CM 182CM Used *[id number] *[id number] [id number] *[id number] [phone] *[id number] 538-421 *[id number] 10:58 SECU4 BLANKET,WARM AIR CCL * Used *[id number] 10:58 SECU4 PACK, CCL CUSTOM * Used *[id number] 10:58 BangTango PACER PEN, SKIN DUAL W/ RULER * Used *[id number] 12:18 MEDTRONIC BALLOON, 2.5 X 12MM EUPHORA 12MM Used *[id number] 12:17 MEDTRONIC BALLOON, 2.5 X 6MM EUPHORA 6MM Used *[id number] 12:22 MEDTRONIC STENT, 2.5 18 INTEGRITY 2.5 18 Used *[id number] 12:26 MEDTRONIC STENT, 3.0 12 INTEGRITY 3.0 12 Used *[id number] 12:21 [employer] 30 KIANA INDEFLATOR Used *[id number] 11:09 MERIT [employer]ICAL SHEATH, FR5.5 PRELUDE 11CM FR 5 [id number] 11:29 [employer] SHEATH, FR6.5 PRELUDE 23CM FR 6.5 Used [id number] 10:58 [employer] WIRE, 3MMJ .035 180CM 180CM Used *[id number] [id number] 11:41 [employer] WIRE, EXCHANGE 260CM 3MMJ 260CM Used *[id number] WIRE, EXCHANGE STR 260CM [id number] 11:42 MERIT MEDICAL 260CM Used .035 *[id number] 10:58 NAMIC MANIFOLD, 4 PORT * Used *[id number] 10:58 NYCOMED OMNIPAQUE, 350 MG, 150ML 150ML [id number] Used [id number] 10:58 TERUMO MEDICAL SHEATH, FR4 TERUMO (10CM) FR 4 Used *[id number] 11:31 [employer]OL[employer] PRIME WIRE, VERRATA 185CM 185CM Used *[id number] Equipment Model, Serial, Lot Number and Expiration Data Description Model Number Serial Number Lot Number Expiration Date STENT, 2.5 18 INTEGRITY [id number] 01-30-2019 STENT, 3.0 12 INTEGRITY [id number] 10-05-2019 WIRE, CHOICE PT 182CM [id number] 12-06-2019 History: Allergies Allergy Reaction No Allergy Information Available oxycodone UNKNOWN acetaminophen UNKNOWN benzonatate UNKNOWN nadolol UNKNOWN clavulanic acid UNKNOWN amlodipine UNKNOWN amoxicillin UNKNOWN clonidine UNKNWN verapamil UNKNOWN nebivolol UNKNOWN enalaprilat UNKNOWN FENESIN UNKNOWN ZPAK UNKNOWN History: Risk Factors Family History of Hypertension Dyslipidemia Previous MT Previous Heart Failure Premature CAD Yes Yes No No Yes Prior Valve Prior PCI Prior CABG Prior CABGDate Surgery Yes No Yes 05/29/2015 Cerebrovascular Peripheral Artery Chronic Lung On Dialysis Diabetes Disease Disease Disease No Yes No No No History: Symptoms/Diagnosis Selection Items Syncope History: CV Disease Selection Items Known CAD History: Stress Tests Stress or Imaging Studies Performed No History: Other Current Smoker No Labs Hgb (g/dl) Hct (%) WBC (l/cumm) Platelets (thousands) 11.60-17.00 35.00-51.00 4.00-11.00 150.00-450.00 11.5 33.5 6.9 146 Glucose (mg/dl) BUN (mg/dl) Creatinine (mg/dl) BUN:Creatinine (1:x) 74.00-106.00 7.00-18.00 0.50-1.30 10.00-20.00 91 27 1.0 27 Na (meq/l) K (meq/l) 136.00-145.00 3.50-5.10 140 4 Troponin I (ng/ml) CPK-MB (ng/ML) 0.02-0.05 0.50-3.60 2.55 Not Drawn Medication Medication Total Dose (Bolus/Oral) Medication Total Dosage/Unit 1% XYLOCAINE 20 mL AGGRASTAT BOLUS 29 meq/kg ASPIRIN 162 mg FENTANYL 12.5 mcg HEPARIN 5800 units PLAVIX 600 mg VERSED 0.5 mg Medications (Bolus/Oral) Medication Time Given Dosage/Unit Administered By Reason VERSED 04/06/2018 11:03:30 AM 0.5 mg Destiny Wong 0.5 mg VERSED given in lab by Destiny Wong RN via Peripheral IV. FENTANYL 04/06/2018 11:04:30 AM 12.5 mcg Destiny Wong 12.5 mcg FENTANYL given in lab by Destiny Wong RN in Left Antecubital via Peripheral IV. 1% XYLOCAINE 04/06/2018 11:06:28 AM 20 mL Rajeev Connolly 20 mL 1% XYLOCAINE given in lab by Rajeev Connolly in Right Groin via Subcutaneous. HEPARIN 04/06/2018 11:28:43 AM 3800 units Destiny Wong 3800 units HEPARIN given in lab by Destiny Wong RN in Left Antecubital via Peripheral IV. HEPARIN 04/06/2018 12:07:00 PM 1000 units Destiny Wong 1000 units HEPARIN given in lab by Destiny Wong RN via Peripheral IV. HEPARIN 04/06/2018 12:19:00 PM 1000 units Shila Suh 1000 units HEPARIN given in lab by Shila Suh RN via Peripheral IV. AGGRASTAT BOLUS 04/06/2018 12:40:53 PM 29 meq/kg Shila Suh 29 meq/kg AGGRASTAT BOLUS given in lab by [place], Shila, RN in Left Antecubital via Peripheral IV. Amount given = 1609.5 meq. PLAVIX 04/06/2018 12:50:00 PM 600 mg Shila Suh 600 mg PLAVIX given in lab by Shila Suh, DEX via Oral. ASPIRIN 04/06/2018 12:50:00 PM 162 mg Shila Suh 162 mg ASPIRIN given in lab by Shila Suh, RN via Oral. Medication (Drip) Medication Time Given Dosage/Unit Concentration/Unit Diluent (ml) Solution AGGRASTAT DRIP 04/06/2018 12:42:47 PM 0.15 mcg/kg/min 12.5 mg 250 NaCl .9 0.15 mcg/kg/min AGGRASTAT DRIP given in lab by Shila Suh, DEX in Left Antecubital via Peripheral IV. Pump/Drip Flow = 9.99 ml/hr using NaCl .9 with a concentration of 12.5 mg in 250 ml. IV Solutions 04/06/2018 10:38:29 AM 0 mL (IV) 500 NaCl .9 Patient arrived on IV Solutions in Left Antecubital via Peripheral IV. Pump/Drip Flow = 20 ml/hr usin g NaCl .9. Initial Case Assessment Cardiovascular HR Rhythm NIBP 97 reg 113/71 Edema Present Skin color Skin None Normal Warm Dry Circulatory - Right Pulses Dorsalis Pedis Femoral d 3 Scale (0,1,2,3,4,d) Circulatory - Left Pulses Dorsalis Pedis Femoral d 3 Scale (0,1,2,3,4,d) Circulatory - Lower Extremities Color Lower Right Color Lower Left Normal Normal Neurological State Oriented to time-place- Alert Moves all extremities person Respiration - General Respiration Rate SpO2 (%) (B/min) 9 95 Final Case Assessment Cardiovascular HR Rhythm NIBP Chest Pain 88 Sinus0 117/70 0 Edema Present Skin color Skin None Normal Warm Dry Circulatory - Right Pulses Dorsalis Pedis Femoral d 3 Scale (0,1,2,3,4,d) Circulatory - Left Pulses Dorsalis Pedis Femoral d 3 Scale (0,1,2,3,4,d) Neurological State Oriented to time-place- Alert Moves all extremities person Respiration - General Respiration Rate SpO2 (%) O2 (lpm) (B/min) 11 97 0 Chronological Log Time Study Chronological Log 10:35:14 Patient arrived via Bed. 10:38:19 Patient Name, D.O.B, / Armband Verified By R.N. 10:38:20 Consent signed by the physician and the patient and verified by the Network Admin staff. 10:38:20 Pre-op and post- op instructions given; patient acknowledges understanding of instructions. 10:38:21 Verbal Stimulation=2 Physical Stimulation=2 Airway=2 Respiration=2 TOTAL=8. (0=absent, 1=li mited, 2=present) 10:38:23 Patient has been NPO for Less than 6Hrs. 10:38:24 Skin Breakdown-mult sewn lacerations on face and head. Right arm in a cast. 10:38:27 Patient Warmer Placed on the Table. 10:38:28 A # 20 IV was noted in the Antecubital (left). Grade = 0 10:38:29 Patient arrived on IV Solutions in Left Antecubital via Peripheral IV. Pump/Drip Flow = 20 ml/hr using NaCl .9. 10:38:30 History and physical on the chart or being dictated. Assessment: Initial Case, HR=97 BPM, Rhythm=reg, XNKO=074/71 mmhg, Edema=None, Color=Normal, Sk in = Warm, Dry Right Pulses: Rafi Ped=d, Femoral=3 Left Pulses: Rafi Ped=d, Femoral=3 10:38:31 Lower Right Extremities: Color=Normal Lower Left Extremities: Color=Normal Neurological: State=Alert, Ox3, MATHEW Respiration: Resp=9 B/min, SpO2=95 % Vitals capture started with the following parameters, Patient=Adult, Interval=5 min, Initial Pr qnuosw=462 mmHg, 10:43:14 Deflation Rate=5 mmHg, Cuff placed on Left Arm 10:43:46 HR=97 bpm, ALFQ=488/72 mmhg, SpO2=96 %, Resp=7 B/min, Pain=0, Dixie=10, Cordova=2 10:48:47 HR=95 bpm, DHMQ=127/73 mmhg, SpO2=99.0 %, Resp=10 B/min, Pain=0, Dixie=10, Cordova=2 10:50:34 Reference ECG taken 10:53:44 HR=95 bpm, LDJS=880/71 mmhg, SpO2=95.0 %, Resp=9 B/min, Pain=0, Dixie=10, Cordova=2 10:54:27 Bilateral groins prepped with 2% chlorhexidine, and draped after a 3 minute waiting time. 10:54:32 MD texted 10:57:19 MD responded 10:58:47 HR=97 bpm, QWIU=841/64 mmhg, SpO2=94.0 %, Resp=12 B/min, Pain=0, Dixie=10, Cordova=2 11:00:46 Pressure channel 1 zeroed. 11:02:19 MD arrived. 11:03:30 0.5 mg VERSED given in lab by Destiny Wong, RN via Peripheral IV. 11:03:46 HR=94 bpm, ZFAR=041/69 mmhg, SpO2=95 %, Resp=11 B/min, Pain=0, Dixie=10, Cordova=2 11:04:30 12.5 mcg FENTANYL given in lab by Destiny Wong, DEX in Left Antecubital via Peripheral I V. Time Out. Correct patient, correct procedure, correct physician, labs, allergies, and equipment verified with laborer chicken farm 11:05:18 team present. Fire risk assesment completed (see hard stop sheet for coding). Time Out Conc urred by MD and individual staff in procedure. Time Out #2 - Consents verified, patient in correct position, all results are labled and displa yed, safety precautions 11:05:23 taken. Time Out concurred by MD, individual staff and WOOD BLOCK ARTIST in procedure. 11:06:20 Case Start 11:06:22 Verbal Stimulation=2 Physical Stimulation=2 Airway=2 Respiration=2 TOTAL=8. (0=absent, 1=li mited, 2=present) 11:06:28 20 mL 1% XYLOCAINE given in lab by Rajeev Connolly in Right Groin via Subcutaneous. 11:07:51 Access site was Right Femoral Artery. 11:07:57 A wire was inserted via Fem Art (right). 11:08:01 A SHEATH, FR4 TERUMO (10CM) FR 4 was advanced into the Fem Art (right) using the Percutaneo us technique. 11:08:47 HR=90 bpm, NIBP=91/59 mmhg, SpO2=96.0 %, Resp=11 B/min, Pain=0, Dixie=10, Cordova=2 11:09:39 Saturation: Site=Ao (Aorta) , O2=93.2 %, Hgb=11.5 gm/dl, Condition=Condition 1. Used in tati culation. A JR 4.0 INFINITI CATHETER FR 4 was advanced over a wire. OMNIPAQUE, 350 MG, 150ML 150ML was us ed for 11:12:45 injections. Recorded Pressure: LV, HR=91, Condition=Condition 1 11:13:14 (Left Ventricle) LV 98/-14/-1 Recorded Pressure: LV, Ao, HR=91, Condition=Condition 1 11:13:38 (Left Ventricle) LV 86/-8/-8, (Aorta) Ao 81/45/62 11:13:44 HR=90 bpm, NIBP=91/61 mmhg, SpO2=92 %, Resp=17 B/min, Pain=0, Dixie=10, Cordova=2 Recorded Pressure: Ao, HR=90, Condition=Condition 1 11:14:07 (Aorta) Ao 83/50/64 11:14:50 The RCA was injected and visualized at various angles. OMNIPAQUE, 350 MG, 150ML 150ML used . 11:15:38 The Gft. Stump 1 was injected and visualized at various angles. OMNIPAQUE, 350 MG, 150ML 15 0ML used. 11:16:25 The SVG-DIAG was injected and visualized at various angles. OMNIPAQUE, 350 MG, 150ML 150ML used. 11:17:21 The SVG-RCA was injected and visualized at various angles. OMNIPAQUE, 350 MG, 150ML 150ML u sed. 11:18:47 HR=88 bpm, NIBP=90/55 mmhg, SpO2=93 %, Resp=17 B/min, Pain=0, Dixie=10, Cordova=2 11:20:23 The HILL-LAD was injected and visualized at various angles. OMNIPAQUE, 350 MG, 150ML 150ML used. 11:23:46 HR=90 bpm, NIBP=93/56 mmhg, SpO2=94.0 %, Resp=14 B/min, Pain=0, Dixie=10, Cordova=2 11:25:37 Catheter was removed A JL 4.0 INFINITI CATHETER FR 4 was advanced over a wire. OMNIPAQUE, 350 MG, 150ML 150ML was us ed for 11:25:39 injections. 11::44 The LCA was injected and visualized at various angles. OMNIPAQUE, 350 MG, 150ML 150ML used . ::38 Catheter was removed :: 3800 units HEPARIN given in lab by Destiny Wong, DEX in Left Antecubital via Peripheral IV. 11:28:49 HR=89 bpm, NIBP=93/52 mmhg, SpO2=93 %, Resp=14 B/min, Pain=0, Dixie=10, Cordova=2 A SHEATH, FR6.5 PRELUDE 23CM FR 6.5 was exchanged in the Fem Art (right). This was necessary in order to 11::58 accomodate a larger catheter. 11::43 Activated Clotting Time Drawn 11:33:50 HR=88 bpm, NIBP=90/51 mmhg, SpO2=99.0 %, Resp=13 B/min, Pain=0, Dixie=10, Cordova=2 11:34:32 Pressure channel 1 zeroed. A JR 4.0 GUIDE CATHETER FR 6 was advanced over a wire. OMNIPAQUE, 350 MG, 150ML 150ML was used for 11:36:00 injections. ::38 ACT (Normal Range 90-180) = 268 11:38:49 HR=87 bpm, NIBP=82/48 mmhg, SpO2=94 %, Resp=19 B/min, Pain=0, Dixie=10, Cordova=2 11:41:11 A WIRE, EXCHANGE STR 260CM .035 260CM was inserted via Fem Art (right). After removing the current catheter a SASHA GUIDE CATHETER FR 6 was advanced over a WIRE, EXCHANG E 260CM 3MMJ 11:42:37 260CM. 11:43:48 HR=90 bpm, NIBP=91/52 mmhg, SpO2=95 %, Resp=14 B/min, Pain=0, Dixie=10, Cordova=2 11:44:22 A PRIME WIRE, VERRATA 185CM 185CM was inserted via Fem Art (right). 11:48:49 HR=86 bpm, NIBP=88/52 mmhg, ItV7=325 %, Resp=10 B/min, Pain=0, Dixie=10, Cordova=2 11:52:10 Flow Wire was was placed in the HILL-LAD. The FFR measures ~FFR~ percent. The IFR measures 0.85 Percent. 11:54:29 HR=90 bpm, LFGA=973/56 mmhg, SpO2=97.0 %, Resp=14 B/min, Pain=0, Dixie=10, Cordova=2 11:58:52 HR=89 bpm, NIBP=90/55 mmhg, SpO2=93.0 %, Resp=26 B/min, Pain=0, Dixie=10, Cordova=2 12:03:29 savannah consulted on phone 12:04:19 HR=91 bpm, KLJP=403/62 mmhg, SpO2=96.0 %, Resp=11 B/min, Pain=0, Dixie=10, Cordova=2 12:07:00 1000 units HEPARIN given in lab by Destiny Wong, DEX via Peripheral IV. 12:07:52 A WIRE, CHOICE PT 182CM 182CM was inserted via Fem Art (right). 12:08:54 HR=89 bpm, NIBP=92/59 mmhg, SpO2=95 %, Resp=10 B/min 12:09:07 flow Wire removed 12:12:14 The HILL-LAD was injected and visualized at various angles. OMNIPAQUE, 350 MG, 150ML 150ML used. 12:13:53 FE=612 bpm, ZEET=180/56 mmhg, SpO2=95 %, Resp=13 B/min, Pain=0, Dixie=10, Cordova=2 12:14:17 Activated Clotting Time Drawn 12:14:21 A WIRE, CHOICE PT 182CM 182CM was inserted via Fem Art (right). 12:18:54 HR=86 bpm, NIBP=96/56 mmhg, SpO2=95 %, Resp=14 B/min, Pain=0, Dixie=10, Cordova=2 12:19:00 1000 units HEPARIN given in lab by Shila Suh, DEX via Peripheral IV. 12:19:24 ACT (Normal Range 90-180) = 241 12:20:05 A BALLOON, 2.5 X 12MM EUPHORA 12MM was inserted over WIRE, CHOICE PT 182CM 182CM via the LI MA-LAD. A BALLOON, 2.5 X 12MM EUPHORA 12MM over a WIRE, CHOICE PT 182CM 182CM in the HILL-LAD was infla jose alberto using 12:20:06 a 30 KIANA INDEFLATOR at 9 kiana for 10 sec. A BALLOON, 2.5 X 12MM EUPHORA 12MM over a WIRE, CHOICE PT 182CM 182CM in the HILL-LAD was infla jose alberto using 12:20:19 a 30 KIANA INDEFLATOR at 10 kiana for 10 sec. 12:21:30 Balloon Removed. An STENT, 2.5 18 INTEGRITY 2.5 18 Bare Metal Stent was inserted through a SASHA GUIDE CATHETER FR 6 over a 12:22:43 WIRE, CHOICE PT 182CM 182CM. 12:23:53 HR=89 bpm, BMVM=049/66 mmhg, SpO2=97.0 %, Resp=9 B/min, Pain=0, Dixie=10, Cordova=2 A STENT, 2.5 18 INTEGRITY 2.5 18 was deployed using a 30 KIANA INDEFLATOR at 16 atmospheres for 2 0 seconds in 12:23:56 the HILL-LAD. 12:26:45 Delivery device removed An STENT, 3.0 12 INTEGRITY 3.0 12 Bare Metal Stent was inserted through a SASHA GUIDE CATHETER FR 6 over a 12:26:48 WIRE, CHOICE PT 182CM 182CM. A STENT, 3.0 12 INTEGRITY 3.0 12 was deployed using a 30 KIANA INDEFLATOR at 12 atmospheres for 1 5 seconds in 12:27:05 the LAD Dist. 12:27:32 Delivery device removed 12:28:55 Wire removed 12:28:56 Wire removed 12:28:58 HR=89 bpm, GREX=887/61 mmhg, SpO2=98.0 %, Resp=18 B/min, Pain=0, Dixie=10, Cordova=2 12:29:27 The HILL-LAD was injected and visualized at various angles. OMNIPAQUE, 350 MG, 150ML 150ML used. 12:30:21 Case End (Physician broke scrub) Assessment: Final Case, HR=88 BPM, Rhythm=Sinus0, EZZT=971/70 mmhg, Chest Pain=0, Edema=None, Color=Normal, Skin = Warm, Dry Right Pulses: Rafi Ped=d, Femoral=3 12:30:32 Left Pulses: Rafi Ped=d, Femoral=3 Neurological: State=Alert, Ox3, MATHEW Respiration: Resp=11 B/min, SpO2=97 %, O2=0 lpm 12:31:23 In the Fem Art (right) the SHEATH, FR6.5 PRELUDE 23CM FR 6.[address] by Rajeev Ortiz. 12:32:01 Activated Clotting Time Drawn 12:33:05 Bedside Report will be given. 12:33:08 Implantable Device card placed in patient's chart. 12:33:15 Cine recording checked. 12:33:55 HR=91 bpm, VVZQ=948/70 mmhg, SpO2=98.0 %, Resp=21 B/min, Pain=0, Dixie=10, Cordova=2 12:36:17 No case complications noted. 12:37:04 ACT (Normal Range 90-180) = 305 12:37:29 A Left Heart Cath was performed. 12:38:58 HR=87 bpm, YVGS=594/66 mmhg, SpO2=98.0 %, Resp=7 B/min, Pain=0, Dixie=10, Cordova=2 29 meq/kg AGGRASTAT BOLUS given in lab by Shila Suh, DEX in Left Antecubital via Periphera l IV. Amount given 12:40:53 = 1609.5 meq. 12:41:51 Vitals capture stopped. 12:41:59 Bedside Report will be given. 0.15 mcg/kg/min AGGRASTAT DRIP given in lab by Shila Suh, DEX in Left Antecubital via Jessica pheral IV. Pump/Drip 12:42:47 Flow = 9.99 ml/hr using NaCl .9 with a concentration of 12.5 mg in 250 ml. 12:50:00 600 mg PLAVIX given in lab by Shila Suh, DEX via Oral. 12:50:00 162 mg ASPIRIN given in lab by Shila Suh, DEX via Oral. End Study - Contrast Media Used In Study Contrast Total Opened (mL) Total Used (mL) Total Wasted (mL) Omnipaque 300 280 20 End Study - Maximum Contrast Load Max Contrast Load (mL) 277.5 End Study - Radiation Exposure Fluoro Time (minutes) 26.0 End Study - Patient Disposition Complications Transferred To Interventional Outcome No Telemetry Bed successful
[2018-04-06] MEDS ORDERED: Iohexol 350 MG/ML 100 ML Vial (for Cath Lab) IVCONTRAST ONE (13:59)
[2018-04-06] MEDS ORDERED: TIROFIBAN BOLUS IV.SIG ONE (14:00)
[2018-04-06] MEDS ORDERED: Sod Chloride 0.9% Inj 1,000 ML IV.SIG ONE (14:00)
--- NOTE | 2018-04-06 15:03 | MR ---
cc: Rajeev Connolly MD DATE: 04/06/2018 PROCEDURE PERFORMED: Left heart catheterization, left ventriculography, coronary angiography, saphenous vein angiography, HILL angiography, IFR of the LAD at the HILL anastomosis in the mid to distal LAD, PCI bare metal stent of the mid to distal LAD, PCI with bare metal stent of the mid LAD at the anastomosis with the HILL. INDICATIONS FOR PROCEDURE: Cardiomyopathy, syncope with essentially negative workup with a high index of suspicion that the event was due to be ventricular tachycardia. IFR of the LAD at the anastomosis and beyond of 0.85. Also the other indication is coronary disease, status post CABG and cardiomyopathy. DESCRIPTION OF PROCEDURE: The patient was brought to the cardiac catheterization laboratory, prepped and draped in the usual sterile fashion. Ten mL of 1% lidocaine was used to locally anesthetize the right common femoral artery. A 4-Comoran JR4 and JL4 catheters were used to perform left and right coronary artery angiography, left ventriculography, saphenous vein angiography and HILL angiography. FINDINGS: The LV pressure is 100/0-1. The ejection fraction is 30-35%. There is clearly wall motion in the anterior apical wall. I would say that there is only mild to moderate hypokinesis of the distal anteroapical wall. Right coronary artery is dominant and is occluded proximally. There is a vein graft that is occluded at the os. The vein graft to the diagonal vessel is widely patent. The [place] diagonal vessel has a reference vessel diameter of 2.75 mm, bifurcates into a very small 1 mm more medial branch. The more lateral of the two branches is 2.5 mm with [id number] diffuse disease up to 30-40% angiographically. The vein graft to the right PDA is widely patent. There is retrograde filling to the distal RCA bifurcation with the right posterolateral artery. The PDA proximal to the graft has mild disease diffusely in the ostial proximal segment up to 30% angiographically. The right THEO is a 2.75 mm vessel with no obvious focal stenosis. There is actually minimal retrograde filling of the right coronary artery proximal to the bifurcation. The right PDA was a 2.5 mm vessel with no significant obstructive disease. The HILL to the LAD is widely patent. At the anastomosis, the LAD has a 70% stenosis and then about 20 mm beyond the stenosis, there is a 70-75% stenosis on a bend. The LAD beyond these sequential stenoses is a 2.75 mm vessel, transapical and extremely tortuous. Note, in the extreme AP cranial view 46 degrees cranial, the lesion beyond the anastomosis appeared to have a length of at least 12 mm. The left main coronary artery has an ostial proximal 30% stenosis and distal 75% stenosis. LAD is occluded after the first diagonal artery. The first diagonal artery is a small vessel, 1.5 mm in diameter with a proximal 95% stenosis note. Note, the LAD just proximal to the diagonal vessel has a 90% stenosis and again is occluded after the first diagonal artery. The left circumflex vessel is subtotally occluded just proximal to a small marginal vessel. After this marginal vessel, it is completely occluded. The marginal vessel is approximately 2 mm in diameter with SUNG 2 flow into it. At this point in time, it was highly suspicious that given the patient's presentation with syncope with essentially negative workup that the LAD lesions beyond the HILL were functionally significant, although anatomically it was uncertain if they were significantly stenotic. Therefore, a 6-Comoran sheath was exchanged for a 4-Comoran sheath, heparin was given. Initial ACT was 268. Used a 6-Comoran HILL guide catheter and placed a Sqrrl pressure wire into the HILL, removed the introducer, flushed to guide with 20 mL of normal saline and normalized the pressure waveforms. I then advanced a wire to the distal LAD. The IFR was 0.85. At this point in time, given the physiologically functional significance of the LAD lesions beyond the HILL and the high index of suspicion that the patient had ventricular tachycardia and/or hypotensive event due to the LAD lesions causing her syncope, I did think that was medically necessary for the LAD to be revascularized, particularly as the anterior wall was clearly viable by the left ventriculogram. My concern from an interventional standpoint was that due to the lesion length, vessel tortuosity, relatively small vessel diameter that stent thrombosis would certainly be a risk. Therefore, my initial recommendation was to do a redo CABG. I discussed the case in detail with Dr. Vazquez. Due to the patient's multiple comorbidities, multiple CVAs in the past, thyroid mass, frailty and the fact that it would be a redo CABG 2 years after the first CABG, that risk of CABG would be higher risk than doing a high risk PCI. I clearly explained to the patient that stent thrombosis will be life threatening; however, without revascularization and the fact that she refused defibrillator and continued to refuse defibrillator, that medical management would be probably a higher risk for subsequent life-threatening event and that of all the options of medical management versus bypass versus PCI, PCI carried the lowest risk, although certainly there was risk of stent thrombosis and sudden and ventricular tachycardia. The patient clearly understood this and agreed with the plan of proceeding with PCI. Therefore, due to the extreme vessel tortuosity, I attempted to place a 0.014 ChoICE PT floppy wire into the distal LAD, but was unsuccessful due to the vessel tortuosity. I left this wire in place and put a second 0.014 ChoICE PT floppy guidewire, which I was able to successfully place into the distal LAD well beyond the sequential lesions. I predilated the more distal lesion with a 2, 5, 12 and 4 balloon, two inflations up to 10 atmospheres up to 20 seconds. Then, clearly the lesion length appeared to be at least 15 mm and I placed a 2.5, 18 Integrity stent at the lesion site with one inflation at 16 atmospheres for 20 seconds. Stenosis went from 75% to 0% with SUNG 3 flow. I then placed a 3.0, 12 Integrity stent at the HILL anastomosis with about 3 mm of the stent hanging into the distal HILL. I did not overlap the stents. I left about 2-3 mm in between stents, so the lesions were clearly spot stented. I deployed the 3.0, 12 Integrity stent with one inflation to 12 atmospheres for 10 seconds. Stenosis went from 70% to 0% with SUNG 3 flow. Note, I gave the patient 1000 more units of heparin. Repeated the ACT. It was 243. I then gave her another 1000 units of heparin. The final ACT was 305. CONCLUSION: 1. Syncope with negative workup and high index of suspicion that the patient had ventricular tachycardia. The patient refused to have ICD with culprit sequential 70% lesions in the HILL to LAD anastomosis and distal to the HILL to LAD anastomosis with IFR across both lesions of 0.85. 2. Severe 3-vessel coronary artery disease in a right dominant system. 3. Three of four grafts patent as detailed above. 4. Cardiomyopathy, ejection fraction 35%. Clearly, there is wall motion and viable myocardium in the anterior apical wall with mild hypokinesis. The majority of the hypokinesis appears to be more severe in the inferoapical wall. 5. IFR of the HILL anastomosis and lesion distal to the HILL anastomosis of 0.85. 6. A discussion with Dr. Vazquez. The patient is not a surgical candidate. 7. Successful percutaneous coronary intervention with bare metal stent of the mid to distal LAD beyond the graft HILL anastomosis from 75% to 0% with SUNG 3 flow. 8. Successful direct PCI bare metal stent of the HILL anastomosis to LAD from 70% to 0% with SUNG 3 flow. 9. Recommend Plavix 600 mg p.o. load and then 75 mg a day for 12-15 months. Aspirin 162 mg daily. Aggrastat drip per protocol. We will treat with beta blockers and ERICK inhibitors as clinically and hemodynamically tolerated. We will check fasting lipids per NCEP guidelines. The patient will need to follow up with Dr. Sawant for further evaluation for risks and benefits of ICD, which she is currently refusing. MD EVANGELISTA Holland/baljit/benny , 12:50 PM , 01:11 PM
[2018-04-07 04:05] LABS: Baso % (Auto) 0.8 % (0.0-2.0); Eos # (Auto) 0.1 th/mm3 (0.0-0.4); Eos % (Auto) 1.3 % (0.0-4.0); Hematocrit 29.4 % (35.0-46.0); Lymph # (Auto) 0.8 th/mm3 (1.0-4.8); Lymph % (Auto) 16.8 % (9.0-44.0); Mean Corpuscular HGB Conc 34.1 % (32.0-36.0); Mean Corpuscular Hemoglobin 33.4 pg (27.0-34.0); Mean Corpuscular Volume 97.9 fL (80.0-100.0); Mean Platelet Volume 8.7 fL (7.0-11.0); Mono # (Auto) 0.4 th/mm3 (0.0-0.9); Mono % (Auto) 9.1 % (0.0-8.0); Neut # (Auto) 3.3 th/mm3 (1.8-7.7); Platelet Count 159 th/mm3 (150-450); Red Blood Count 3.01 mil/mm3 (4.00-5.30); Red Cell Distribution Width 13.3 % (11.6-17.2); White Blood Count 4.5 th/mm3 (4.0-11.0)
[2018-04-07 04:19] LABS: Albumin 3.3 g/dL (3.4-5.0); Carbon Dioxide 24.6 meq/L (21.0-32.0); Potassium 3.8 meq/L (3.5-5.1)
[2018-04-07 04:23] LABS: Chol/HDL Ratio 4.52 Ratio; HDL Cholesterol 50.2 mg/dL (40.0-60.0); Total Protein 6.3 g/dL (6.4-8.2)
--- NOTE | 2018-04-07 08:08 | P.PNCA ---
Subjective Interval history: assymptomatic in nad Medications and Allergies Active Medications: Active Medications Hydrocodone Bitart/Acetaminophen ([place] 5/325) 1 tab PO Q6H PRN PRN Reason: PAIN SCALE 6 TO 10 Al Hydroxide/Mg Hydroxide (Milk Of Magnesia Liq) 30 ml PO Q12H PRN PRN Reason: Mild Constipation Aspirin (Aspirin Chew) 162 mg PO DAILY [facility] Atorvastatin Calcium (Lipitor) 40 mg PO HS [facility] Bisacodyl (Dulcolax Supp) 10 mg RECTAL DAILY PRN PRN Reason: SEVERE CONSITIPATION Carvedilol (Coreg) 3.125 mg PO BID [facility] Last Admin: 04/06/18 22:22 Dose: 3.125 mg Clopidogrel Bisulfate (Plavix) 75 mg PO DAILY [facility] Digoxin (Lanoxin) 125 mcg PO EVERY OTHER DAY [facility] Last Admin: 04/06/18 08:59 Dose: 125 mcg Furosemide (Lasix) 20 mg PO DAILY [facility] Last Admin: 04/06/18 09:00 Dose: 20 mg Tirofiban/Sodium Chloride (Aggrastat Inj) 12,500 mcg in 250 mls @ 0 mls/hr IV.CONT .Q0M [facility]; Protocol Last Admin: 04/06/18 12:40 Dose: 0.15 mcg/kg/min, 10.03 mls/hr Lactulose (Lactulose Liq) 30 ml PO DAILY PRN PRN Reason: SEVERE CONSITIPATION Sacubitril/Valsartan (Entresto 49 Mg/51 Mg) 1 tab PO BID [facility] Last Admin: 04/06/18 22:22 Dose: 1 tab Sennosides (Senokot) 17.2 mg PO Q12H PRN PRN Reason: Moderate Constipation Sodium Chloride (Ns Flush) 2 ml IV.FLUSH BID [facility] Last Admin: 04/06/18 22:23 Dose: 2 ml Sodium Chloride (Ns Flush) 2 ml IV.FLUSH PRN PRN PRN Reason: FLUSH AFTER USING IV ACCESS Allergies Allergy/AdvReac Type Severity Reaction Status Date / Time acetaminophen [From Percocet] Allergy UNKNOWN Verified 04/02/18 14:07 amlodipine [From Norvasc] Allergy UNKNOWN Verified 04/02/18 14:07 amoxicillin [From Augmentin] Allergy UNKNOWN Verified 04/02/18 14:07 benzonatate Allergy UNKNOWN Verified 04/02/18 14:07 [From Tessalon Perles] clavulanic acid Allergy UNKNOWN Verified 04/02/18 14:07 [From Augmentin] clonidine Allergy UNKNWN Verified 04/02/18 14:07 enalaprilat [From Vasotec] Allergy UNKNOWN Verified 04/02/18 14:07 nadolol Allergy UNKNOWN Verified 04/02/18 14:07 nebivolol [From Bystolic] Allergy UNKNOWN Verified 04/02/18 14:07 oxycodone [From Percocet] Allergy UNKNOWN Verified 04/02/18 14:07 verapamil [From Covera-HS] Allergy UNKNOWN Verified 04/02/18 14:07 FENESIN Allergy UNKNOWN Uncoded 04/02/18 14:07 ZPAK Allergy UNKNOWN Uncoded 04/02/18 14:07 Home Medications Medication Instructions Recorded Confirmed Type Ocuvite 04/02/18 History aspirin 81 mg PO DAILY 04/02/18 04/02/18 History carvedilol 3.125 mg PO BID 04/02/18 04/02/18 History digoxin 0.125 mg PO EVERY OTHER DAY 04/02/18 04/02/18 History furosemide 20 mg PO DAILY 04/02/18 04/02/18 History magnesium 04/02/18 History potassium chloride 10 meq PO BID 04/02/18 04/02/18 History sacubitril-valsartan [Entresto] 1 tab PO BID 04/02/18 04/02/18 History Physical Exam Vital signs: Vital Signs 04/06/18 09:00 04/06/18 12:00 04/06/18 16:00 Temperature 98.4 F 98.6 F Pulse Rate 76 96 H 76 Respiratory Rate 16 16 Blood Pressure 114/65 Pulse Oximetry 95 96 04/06/18 16:56 04/06/18 19:00 04/06/18 20:00 Temperature 98.5 F Pulse Rate 73 73 Respiratory Rate 16 Blood Pressure 109/63 Pulse Oximetry 98 97 04/06/18 23:00 04/07/18 00:00 04/07/18 03:07 Temperature 98.3 F Pulse Rate 75 84 77 Respiratory Rate 12 Blood Pressure 105/67 Pulse Oximetry 97 04/07/18 04:00 Temperature 97.7 F Pulse Rate 81 Respiratory Rate 12 Blood Pressure 113/65 Pulse Oximetry 96 Intake & Output 04/06/18 04/07/1818 18:59 06:59 18:59 Intake Total 1650 / 1650 120 / 120 Output Total 300 / 300 750 / 750 Balance 1350 / 1350 -630 / -630 Weight 56.7 kg Intake: Oral 600 / 600 120 / 120 Anesthesia Amount 1050 / 1050 Output: Urine 300 / 300 750 / 750 Other: Date of Last Bowel Movement 04/04/18 - Constitutional no acute distress - Routine HEENT Exam Head: Present: normocephalic - Routine Neck Exam Present: supple - Routine Respiratory Exam Present: CTA bilaterally - Routine Cardiovascular Exam Present: S1, S2 - Routine Abdominal Exam Present: soft - Routine Extremities Exam Comments: no carson Results 04/07/18 03:31 04/07/18 03:31 Cardiac Enzymes 04/06/18 04/06/18 04/07/18 Range/Units 00:50 00:50 03:31 AST 14 L (15-37) U/L Troponin I 1.31 H* D (0.02-0.05) ng/mL B-Natriuretic Peptide 162 H (0-100) pg/mL 04/07/18 Range/Units 03:31 AST (15-37) U/L Troponin I (0.02-0.05) ng/mL B-Natriuretic Peptide 195 H (0-100) pg/mL Coagulation 04/06/18 04/07/18 Range/Units 00:50 03:31 B-Natriuretic Peptide 162 H 195 H (0-100) pg/mL Lipids 04/07/18 Range/Units 03:31 Triglycerides 125 (42-150) mg/dL Cholesterol 227 H (120-200) mg/dL HDL Cholesterol 50.2 (40.0-60.0) mg/dL Cholesterol/HDL Ratio 4.52 Ratio CBC 04/06/18 04/07/18 Range/Units 00:50 03:31 WBC 4.4 4.5 (4.0-11.0) th/mm3 RBC 3.13 L 3.01 L (4.00-5.30) mil/mm3 Hgb 10.4 L 10.0 L (11.6-15.3) gm/dL Hct 30.2 L 29.4 L (35.0-46.0) % Plt Count 148 L 159 (150-450) th/mm3 Neut # (Auto) 3.3 (1.8-7.7) th/mm3 Lymph # (Auto) 0.8 L (1.0-4.8) th/mm3 [place] # (Auto) 0.4 (0.0-0.9) th/mm3 Eos # (Auto) 0.1 (0.0-0.4) th/mm3 Baso # (Auto) 0.0 (0.0-0.2) th/mm3 Comprehensive Metabolic Panel 04/06/18 04/07/18 Range/Units 00:50 03:31 Sodium 138 143 (136-145) meq/L Potassium 3.8 3.8 (3.5-5.1) meq/L Chloride 102 108 H (98-107) meq/L Carbon Dioxide 26.1 24.6 (21.0-32.0) meq/L BUN 26 H 22 H (7-18) mg/dL Creatinine 1.00 0.98 (0.50-1.00) mg/dL Calcium 8.3 L 8.0 L (8.5-10.1) mg/dL Direct Bilirubin 0.1 (0.0-0.2) mg/dL Indirect Bilirubin 0.3 (0.0-0.8) mg/dL AST 14 L (15-37) U/L ALT 20 (10-53) U/L Alkaline Phosphatase 56 (45-117) U/L Total Protein 6.3 L (6.4-8.2) g/dL Albumin 3.3 L (3.4-5.0) g/dL Intake and Output 04/06/18 04/07/18 04/07/18 22:59 06:59 14:59 Intake Total 1125 / 1125 120 / 120 Output Total 300 / 300 750 / 750 Balance 825 / 825 -630 / -630 Intake: Oral 600 / 600 120 / 120 Anesthesia Amount 525 / 525 Output: Urine 300 / 300 750 / 750 Other: Date of Last Bowel Movement 04/04/18 Weight 56.7 kg Assessment and Plan - Assessment (1) Syncope Code(s): R55 - Syncope and collapse Status: Acute (2) Elevated troponin Code(s): R74.8 - Abnormal levels of other serum enzymes Status: Acute (3) Head injury Code(s): S09.90XA - Unspecified injury of head, initial encounter Status: Acute (4) Laceration of scalp Code(s): S01.01XA - Laceration without foreign body of scalp, initial encounter Status: Acute (5) Mass in neck Code(s): R22.1 - Localized swelling, mass and lump, neck Status: Acute (6) Pulmonary nodule Code(s): R91.1 - Solitary pulmonary nodule Status: Acute (7) Closed fracture dislocation of right wrist joint Code(s): S62.101A - Fracture of unspecified carpal bone, right wrist, initial encounter for closed fracture Status: Acute - Plan 1.) Syncope/nstemi - cardiomyopathy with bio mvr, EP has evaluated, patient declines icd/biv/life vest, assymptomatic s/p bms x 2 lad, continue aspirin, plavix, coreg, entresto, start lipitor; f/u with me amanda. (1) Syncope Qualifiers: Syncope type: unspecified Qualified Code(s): R55 - Syncope and collapse (3) Head injury Qualifiers: Encounter type: initial encounter Qualified Code(s): S09.90XA - Unspecified injury of head, initial encounter (4) Laceration of scalp Qualifiers: Encounter type: initial encounter Qualified Code(s): S01.01XA - Laceration without foreign body of scalp, initial encounter (7) Closed fracture dislocation of right wrist joint Qualifiers: Encounter type: initial encounter Qualified Code(s): S62.101A - Fracture of unspecified carpal bone, right wrist, initial encounter for closed fracture
[2018-04-07 08:55] VITALS: RESP 16
[2018-04-07] MEDS: Furosemide 20 MG Tablet PO SCH (09:04)
--- NOTE | 2018-04-07 10:35 | P.DCO ---
- Diagnosis (1) Syncope Status: Acute (2) Elevated troponin Status: Acute (3) Head injury Status: Acute (4) Laceration of scalp Status: Acute - Physical Therapy Order: Evaluate and treat - Occupational Therapy Order: Evaluate and treat - Home Health Nursing Order: Nursing assessment with vital signs - Case Management Consult No - Certification I have seen patient Maria Esther Zurita on 04/07/18. My clinical findings support the need for the requested home health care services because: Limited ability to care for self I certify that my clinical findings support that this patient is homebound because: Unsafe to leave home unassisted, Poor cardiac reserve (1) Syncope Qualifiers: Syncope type: unspecified Qualified Code(s): R55 - Syncope and collapse (3) Head injury Qualifiers: Encounter type: initial encounter Qualified Code(s): S09.90XA - Unspecified injury of head, initial encounter (4) Laceration of scalp Qualifiers: Encounter type: initial encounter Qualified Code(s): S01.01XA - Laceration without foreign body of scalp, initial encounter
--- NOTE | 2018-04-07 10:35 | P.DS ---
Date of admission: 04/02/18 17:32 Primary care physician: UNKNOWN Brief History from admission: Pleasant female with a history of coronary artery disease status post CABG and valve replacement about 2 years ago brought in as a level 2 trauma alert with significant head injury after fall. Patient reports the last thing she remembered was walking to the kitchen. She denied any prodromal symptoms such as lightheadedness. She reported a history of paroxysmal A. fib. She takes a baby aspirin daily. No other blood thinners. The patient had a large scalp laceration, large ecchymosis/swelling of the left eye. She is unable to open the left eye due to significant swelling but states she had no visual problems right after the injury before the swelling worsen. She was reportedly hypoxemic and tachypneic on arrival. Her troponin is elevated at 0.9. Further imaging also shows a nondisplaced right distal radius fracture. The patient was evaluated by the trauma surgeon and cleared for admission to the medical service. DS: Diagnosis - Discharge Diagnosis (1) Syncope Status: Acute (2) Elevated troponin Status: Acute (3) Head injury Status: Acute (4) Laceration of scalp Status: Acute DS: Medications - Discharge Medications Prescriptions: atorvastatin 40 mg PO HS #30 tab clopidogrel [Plavix] 75 mg PO DAILY #30 tab DS: Summary Hospital Course: Emergency department patient underwent scalp laceration as well as left supraorbital laceration repair, had her right forearm splinted from hand to her elbow for a nondisplaced distal radius fracture extending into the radiocarpal joint. After trauma cleared the patient, patient was admitted to medicine service. Was placed on cardiac cath tech given her elevated troponins and suspicion for arrhythmias leading to her syncopal episode causing her trauma. Neurological workup including brain imaging was negative. 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 Oncology was also consulted for suspicious metastatic right lung nodule, deferred workup for now with repeat outpatient imaging. Electrophysiology evaluated the patient, and patient opted out of defibrillator placement despite being counseled extensively about the risks and benefits including sudden cardiac should she avoid placement. Cardiology performed cardiac catheterization with bare-metal stent placement. Patient was offered acute inpatient rehab but she opted out despite counseling of excess risks and benefits, wanted to go home with family. Patient has met maximal benefit from hospitalization is clinically stable for discharge. - Time Spent with Patient Total time spent providing and/or coordinating discharge services: Less than 30 minutes - Quality: VTE Deep Vein Thrombosis/Pulmonary Embolism Present on Admission: No Exam Vital signs: Vital Signs 04/06/18 12:00 04/06/18 16:00 04/06/18 16:56 Temperature 98.4 F 98.6 F Pulse Rate 96 H 76 Respiratory Rate 16 16 Blood Pressure 114/65 Pulse Oximetry 95 96 98 04/06/18 19:00 04/06/18 20:00 04/06/18 23:00 Temperature 98.5 F Pulse Rate 73 73 75 Respiratory Rate 16 Blood Pressure 109/63 Pulse Oximetry 97 04/07/18 00:00 04/07/18 03:07 04/07/18 04:00 Temperature 98.3 F 97.7 F Pulse Rate 84 77 81 Respiratory Rate 12 12 Blood Pressure 105/67 113/65 Pulse Oximetry 97 96 04/07/18 08:54 Temperature 98.4 F Pulse Rate 103 H Respiratory Rate 16 Blood Pressure 114/73 Pulse Oximetry 100 Intake & Output 04/06/18 04/07/18 04/07/18 18:59 06:59 18:59 Intake Total 1650 / 1650 120 / 120 Output Total 300 / 300 750 / 750 Balance 1350 / 1350 -630 / -630 Weight 56.7 kg Intake: Oral 600 / 600 120 / 120 Anesthesia Amount 1050 / 1050 Output: Urine 300 / 300 750 / 750 Other: Date of Last Bowel Movement 04/04/18 Narrative: Heart sounds regular rate rhythm, no murmurs Clear lungs bilaterally, unlabored breathing Sutures in place over right scalp and left supraorbital area which appears dry clean and intact Mild improvement in left conjunctival hemorrhage, otherwise extraocular motions are intact, patient is able to see visibly without difficulty and without pain Results Procedures completed during hospitalization: Repair of 3 lacerations: one scalp, 2 of the face s/p bms x 2 lad neck biopsy Right forearm and hand splint Labs on day of discharge: Labs from last 24 hours 04/07/18 04/07/18 04/07/18 03:31 03:31 03:31 WBC 4.5 RBC 3.01 L Hgb 10.0 L Hct 29.4 L MCV 97.9 MCH 33.4 MCHC 34.1 RDW 13.3 Plt Count 159 MPV 8.7 Neut % (Auto) 72.0 H Lymph % (Auto) 16.8 [place] % (Auto) 9.1 H Eos % (Auto) 1.3 Baso % (Auto) 0.8 Neut # (Auto) 3.3 Lymph # (Auto) 0.8 L [place] # (Auto) 0.4 Eos # (Auto) 0.1 Baso # (Auto) 0.0 WBC Differential . Differential Comment Auto diff final Sodium 143 Potassium 3.8 Chloride 108 H Carbon Dioxide 24.6 Anion Gap 10 BUN 22 H Creatinine 0.98 Estimated GFR 55 L Random Glucose 85 Calcium 8.0 L Total Bilirubin 0.4 Direct Bilirubin 0.1 Indirect Bilirubin 0.3 AST 14 L ALT 20 Alkaline Phosphatase 56 Total Creatine Kinase 152 B-Natriuretic Peptide 195 H Total Protein 6.3 L Albumin 3.3 L Triglycerides 125 Cholesterol 227 H LDL Cholesterol, Calc 152 H HDL Cholesterol 50.2 Cholesterol/HDL Ratio 4.52 - Impressions ITS Impressions Chest X-Ray 04/02/18 12:42 CONCLUSION: Generalized interstitial vascular prominence which may represent developing congestion No evidence of consolidating airspace disease or effusions. Status post median sternotomy. Cervical Spine CT 04/02/18 12:53 CONCLUSION: 1. No fracture or subluxation. 2. There is a mass in the right posterior neck just posterior to the right thyroid lobe and trachea. Malignancy should be excluded. 3. Interlobular septal thickening within the upper lung likely from interstitial edema. Face CT 04/02/18 12:53 CONCLUSION: 1. Facial soft tissue swelling greater than left. 2. No facial fractures. Head CT 04/02/18 12:53 CONCLUSION: 1. No acute intracranial abnormality. 2. Facial and scalp contusions. 3. Cerebral atrophy and chronic ischemic small vessel vasculopathy. Chest CTA 04/02/18 12:59 CONCLUSION: 1. No evidence for pulmonary embolism. 2. Interlobular septal thickening with scattered groundglass densities likely interstitial edema. 3. 11 mm nodule in the right lower lobe, metastatic disease cannot be excluded. A few other smaller nodules are seen within the upper lobes. Wrist X-Ray 04/02/18 16:41 CONCLUSION: Nondisplaced fracture of the distal right radius extending into the radiocarpal joint. Moderate arthropathy at the base of the first metacarpal. Carotid Doppler Study 04/03/18 00:00 CONCLUSION: Mild to moderate plaquing with no evidence of stenosis. Head MRI 04/03/18 00:00 CONCLUSION: 1. Atrophy and white matter disease with no signs of acute infarct. Head MRA 04/03/18 08:30 CONCLUSION: 1. Negative MRA [place] ([place]) non contrast. Biopsy Ultrasound 04/04/18 00:00 CONCLUSION: 1. Uncomplicated biopsy of right neck mass Discharge Plan - Discharge Disposition Patient Disposition: /Home Health Service - Discharge Condition Condition: Stable - Discharge Order Discharge Orders: Discharge Order (Routine); Ordered 04/07/18 Ordered By: Tima Villa - Physicians Team Primary Care Provider: UNKNOWN, Attending Provider: Tima Villa Other Providers: Rajeev Connolly MD ; Chaka Conteh MD ; Dianna Marin Hanscy, MD
[2018-04-07 11:58] VITALS: BP 112/63; PULSE 83; TEMP 98.2; O2SAT 96
--- NOTE | 2018-04-07 12:14 | XR ---
EXAM DATE: 04/07/2018 12:10 PM EST AGE/SEX: 77 years / Female INDICATIONS: Wrist fracture. Patient in a cast and did not have much mobility for images. CLINICAL DATA: This is the patient's subsequent encounter. Patient reports that signs and symptoms h ave been present for 4 - 6 days and indicates a pain score of 0/10. MEDICAL/SURGICAL HISTORY: . Coronary artery disease. Stroke. CABG. . COMPARISON: [facility], WRIST COMPLETE RIGHT MIN 3V, 04/02/2018. . FINDINGS: Bony structures are intact and in normal alignment. Osseous density is normal. Soft tissues are unre markable. No radiopaque foreign bodies seen. Distal radius fracture is not well visualized. CONCLUSION: The distal radius fracture is obscured by cast artifact. Electronically signed by: Lee Shannon MD 04/07/2018 12:13 PM EST
== END 2018-04-07 18:50 | disposition home health service (06) ==
LOC: NEPI 12:40 → EDBD 17:32 → NEDA 17:32 → HCIN 21:15
PROVIDERS: ADMIT Hospitalist; ATTEND Hospitalist